=== PATIENT | female | born 1950 | race Caucasian/White ===

== ENCOUNTER 2016-04-12 11:10 | Emergency (ER) | payer OTHER ==
[2016-04-12] MEDS ORDERED: KETOROLAC 30 MG/ML VIAL (J1885) As Ordered ONE (12:56)
[2016-04-12] MEDS ORDERED: ONDANSETRON 4MG/2ML VIAL (J2405) As Ordered ONE (12:56)
[2016-04-12 13:29] LABS: BASO # 0.1 K/mm3 (0.0-0.2); BASO % 0.6 % (0.0-1.0); EOS # 0.1 K/mm3 (0.0-0.50); EOS % 0.6 % (0.0-3.0); LARGE UNSTAINED CELL # 0.1 K/mm3 (0.0-0.4); LARGE UNSTAINED CELL % 0.4 % (0.0-4.0); LYMPH # 1.1 K/mm3 (1.5-4.5); MEAN CORPUSCULAR HEMOGLOBIN 28.7 pg (27.0-33.0); MEAN CORPUSCULAR HGB CONC 33.5 g/dl (32.0-36.5); MEAN CORPUSCULAR VOLUME 85.7 fl (80.0-96.0); MONO # 1.1 K/mm3 (0.0-0.8); MONO % 5.2 % (0.0-5.0); NEUTROPHILS # 17.7 K/mm3 (1.8-7.7); NEUTROPHILS % 88.1 % (36.0-66.0); PLATELET COUNT, AUTOMATED 245 k/mm3 (150-450); RED CELL DISTRIBUTION WIDTH 13.5 % (11.5-14.5)
[2016-04-12 13:55] LABS: ALBUMIN 4.1 GM/DL (3.2-5.2); ALBUMIN/GLOBULIN RATIO 1.14 (1.00-1.93); ALKALINE PHOSPHATASE 83 U/L (45-117); ALT/SGPT 30 U/L (12-78); AMYLASE 31 U/L (25-115); ANION GAP 8 MEQ/L (8-16); AST/SGOT 21 U/L (15-37); BILIRUBIN,DIRECT 0.1 MG/DL (0.0-0.2); BILIRUBIN,TOTAL 0.5 MG/DL (0.2-1.0); BLOOD UREA NITROGEN 11 MG/DL (7-18); CARBON DIOXIDE LEVEL 34 MEQ/L (21-32); CHLORIDE LEVEL 98 MEQ/L (98-107); CREATININE FOR GFR 0.62 MG/DL (0.55-1.02); GLOMERULAR FILTRATION RATE > 60.0 (>45); GLUCOSE, FASTING 88 MG/DL (80-110); POTASSIUM SERUM 3.2 MEQ/L (3.5-5.1); SODIUM LEVEL 140 MEQ/L (136-145); TOTAL PROTEIN 7.7 GM/DL (6.4-8.2)
[2016-04-12] MEDS ORDERED: metroNIDAZOLE (FLAGYL) 250 MG TAB As Ordered ONE (14:33)
[2016-04-12] MEDS ORDERED: CIPROFLOXACIN 500 MG TAB As Ordered ONE (14:34)
[2016-04-12] MEDS ORDERED: ACETAMINOPHEN 325 MG TAB As Ordered ONE (14:34)
--- NOTE | 2016-04-12 14:55 | EDDOCDS ---
Physician Documentation [facility] Name: Zoe Gunn Age: 65 yrs Sex: Female : 1950 Arrival Date: 04/12/2016 Time: 11:10 Bed I5 / M5 Private MD: Geovanny Castro Disposition: 04/12/16 14:32 Discharged to Home/Self Care. Impression: Diverticulitis of large intestine without perforation or abscess without bleeding - Sigmoid Colon Diverticulitis. - Condition is Stable. - Discharge Instructions: Diverticulitis, [id number]. - Prescriptions for Cipro 500 mg Oral Tablet - take 1 tablet by ORAL route every 12 hours for 10 days; 20 tablet. Flagyl 500 mg Oral Tablet - take 1 tablet by ORAL route every 12 hours for 10 days; 20 tablet. Percocet 5- 325 mg Oral Tablet - take 1 tablet by ORAL route every 6 hours As needed MDD: 4 tabs; 10 tablet. - Medication Reconciliation, Local Pharmacy Hours form. - Follow up: Emergency Department; Reason: Worsening of conditions. Follow up: Geovanny Castro; When: 1 - 2 days; Reason: Recheck today's complaints, Continuance of care. - Problem is new. - Symptoms have improved. - Notes: Pt has an appointment on April [address] Castro and discussed with Dr Brantley today. Historical: - Allergies: no known allergies; - Home Meds: 1. triamterene-hydrochlorothiazid 37.5-25 mg Oral cap 1 cap once daily 2. acyclovir 400 mg Oral tab 1 tab 2 times per day 3. omeprazole 40 mg Oral cpDR 1 cap 2 times per day 4. ranitidine HCl 150 mg Oral tbef twice a day 5. simvastatin 20 mg Oral tab 1 tab once daily 6. venlafaxine 150 mg oral cp24 1 cap once daily 7. aspirin 81 mg Oral chew once daily 8. Calcarb 600 With Vitamin D 600 mg(1,500mg) -200 unit Oral tab - PMHx: Hot flashes; Hypercholesterolemia; Hypertension; Herpes; melanoma; - PSHx: Tubal ligation; Hysterectomy; radial groin disection; - Social history: Smoking status: No barriers to communication noted, Speaks appropriately for age, Smoking status: Patient states former smoker of tobacco. - Family history: No immediate family members are acutely ill. - : The pt / caregiver states he / she is not on anticoagulants. Home medication list is obtained from the patient. - Exposure Risk Screening:: None identified. Vital Signs: 04/12 11:11 BP 164 / 82; Pulse 103; Resp 20; Temp 100.0(O); Pulse Ox 98% on R/A; Weight 72.57 kg / elp 159.99 lbs (R); Height 5 ft. 7 in. (170.18 cm) (R); Pain 10/10; 12:36 BP 143 / 77; Pulse 105; ar3 14:24 BP 154 / 80; Pulse 101; Resp 20; Temp 100.1(O); Pulse Ox 97% on R/A; Pain 1/10; dwg 11:11 Body Mass Index 25.06 (72.57 kg, 170.18 cm) elp MDM: 12:44 Urine Dip ordered. ef1 12:45 Urine Culture Ordered. EDMS 12:51 Ondansetron 4 mg IVP once ordered. ef1 12:51 IV Saline Lock ordered. ef1 12:51 Undress patient appropriately for examination ordered. ef1 12:51 ketorolac 15 mg IVP once ordered. ef1 12:52 Amylase Ordered. EDMS 12:52 Basic Metabolic Profile Ordered. EDMS 12:52 CBC with Diff Ordered. EDMS 12:52 Lipase Ordered. EDMS 12:52 Liver Profile Ordered. EDMS 12:52 CT ABD & PELVIS: No Contrast Ordered. EDMS 12:52 NOTHING BY MOUTH+DIET ordered. EDMS 14:14 Basic Metabolic Profile Reviewed. ef1 14:14 CBC with Diff Reviewed. ef1 14:14 Amylase Reviewed. ef1 14:14 Lipase Reviewed. ef1 14:14 Liver Profile Reviewed. ef1 14:20 Recheck Vital Signs, perform reassessment and enter into [employer]ist[employer] ordered. ef1 14:23 [facility] Payment Agreement was scanned into [employer] and attached to record. jp5 14:23 Financial registration complete. jp5 14:28 Ciprofloxacin 500 mg PO once ordered. ef1 14:28 metroNIDAZOLE 500 mg PO once ordered. ef1 14:28 Acetaminophen Tablet 650 mg PO once ordered. ef1 Point of Care Testing: Urine Dip: 12:47 pH: 7; ; Specific [place]: 1.015; Ketones: Negative; Glucose: Positive; Protein: jjr Negative; Leukocytes: Negative; Nitrite: Negative ; Blood: Negative; Bilirubin: Negative ; Urobilinogen: Normal Ranges: Administered Medications: 13:24 Drug: ketorolac 15 mg [ketorolac 30 mg/mL (1 mL) injection solution (0.5 mL)] Route: dwg IVP; Site: right antecubital; 13:56 Follow up: Response: Pain is decreased dwg 13:25 Drug: Ondansetron 4 mg Route: IVP; Site: right antecubital; dwg 13:56 Follow up: Response: Nausea is resolved dwg 14:37 Drug: Acetaminophen 650 mg [acetaminophen 325 mg tablet (2 tabs)] Route: PO; dls 14:37 Follow up: Response: Pt left department before re-evaluation is appropriate dls 14:38 Drug: Ciprofloxacin 500 mg [ciprofloxacin 500 mg tablet (1 tabs)] Route: PO; dls 14:38 Drug: metroNIDAZOLE 500 mg [metronidazole 250 mg tablet (2 tabs)] Route: PO; dls 14:38 Follow up: Response: Pt left department before re-evaluation is appropriate dls Signatures: Dispatcher [employer] Shawn Palomares RN RN dwg Ginger Fraire, PA-C PA-C ef1 Janell Brothers RN RN rs3 Lala Edwards jp5 Agnieszka Cardona RN dls The chart was reviewed and I authenticate all verbal orders and agree with the evaluation and treatment provided.Attachments: 14:23 [facility] Payment Agreement jp5 MTDD
--- NOTE | 2016-04-12 14:55 | EDDOCDS ---
Nurse's Notes [facility] Name: Zoe Gunn Age: 65 yrs Sex: Female : 1950 Arrival Date: 04/12/2016 Time: 11:10 Bed I5 / M5 Private MD: Geovanny Castro Diagnosis: Diverticulitis of large intestine without perforation or abscess without bleeding-Sigmoid Colon Diverticulitis Presentation: 04/12 11:44 Presenting complaint: Patient states: lower abdominal pain/spasm since . worse rs3 with walking. No relief with Motrin. denies of vaginal discharge. increased pain with urination/BM. mucous discharge with BM today. Adult Sepsis Screening: The patient does not have new or worsening altered mentation. Patient's respiratory rate is less than 22. Systolic blood pressure is greater than 100. Patient has a qSOFA score of 0- Negative Sepsis Screen. Suicide/Homicide risk assessment- the patient denies having any suicidal and/or homicidal ideations and does not present with any other emotional, behavioral or mental health complaints. Status: Patient is not a medical services assistant or dependent. Transition of care: patient was not received from another setting of care. 11:44 Acuity: DIMAS Level 3 rs3 11:44 Method Of Arrival: Walkin/Carried/Asstd rs3 Triage Assessment: 11:52 General: Appears in no apparent distress. Pain: Location: pelvis. rs3 Historical: - Allergies: no known allergies; - Home Meds: 1. triamterene-hydrochlorothiazid 37.5-25 mg Oral cap 1 cap once daily 2. acyclovir 400 mg Oral tab 1 tab 2 times per day 3. omeprazole 40 mg Oral cpDR 1 cap 2 times per day 4. ranitidine HCl 150 mg Oral tbef twice a day 5. simvastatin 20 mg Oral tab 1 tab once daily 6. venlafaxine 150 mg oral cp24 1 cap once daily 7. aspirin 81 mg Oral chew once daily 8. Calcarb 600 With Vitamin D 600 mg(1,500mg) -200 unit Oral tab - PMHx: Hot flashes; Hypercholesterolemia; Hypertension; Herpes; melanoma; - PSHx: Tubal ligation; Hysterectomy; radial groin disection; - Social history: Smoking status: No barriers to communication noted, Speaks appropriately for age, Smoking status: Patient states former smoker of tobacco. - Family history: No immediate family members are acutely ill. - : The pt / caregiver states he / she is not on anticoagulants. Home medication list is obtained from the patient. - Exposure Risk Screening:: None identified. Screenin:48 Screening information is obtained from the patient. Fall risk: No risks identified. dwg Assistance ADL's: requires no assistance with activities of daily living. Abuse/DV Screen: The patient / caregiver reports he/she is: not in a situation that causes fear, pain or injury. Nutritional screening: No deficits noted. Advance Directives: Currently, there is no health care proxy. There is no active DNR order. There is no living will. There is no Power of Reception Interviewer. Advance directive information has not previously been placed in an [facility] medical record. Further advance directive information is declined. home support is adequate. Assessment: 13:25 General: Appears in no apparent distress, Behavior is cooperative, pleasant. General: dwg ''Pelvic pressure'' for 4 days, no vomiting or vaginal bleeding.. Pain: Pain currently is 5 out of 10 on a pain scale. Neurological: Level of Consciousness is awake, alert, Oriented to person, place, time. Respiratory: Airway is patent Respiratory effort is even, unlabored, Respiratory pattern is regular, symmetrical, Breath sounds are clear bilaterally. 14:25 General: Appears in no apparent distress, Behavior is cooperative. Neurological: Level dwg of Consciousness is awake, alert, Oriented to person, place, time. Respiratory: Airway is patent Respiratory effort is even, unlabored, Respiratory pattern is regular, symmetrical. Vital Signs: 11:11 BP 164 / 82; Pulse 103; Resp 20; Temp 100.0(O); Pulse Ox 98% on R/A; Weight 72.57 kg el (R); Height 5 ft. 7 in. (170.18 cm) (R); Pain 10/10; 12:36 BP 143 / 77; Pulse 105; ar3 14:24 BP 154 / 80; Pulse 101; Resp 20; Temp 100.1(O); Pulse Ox 97% on R/A; Pain 1/10; dwg 11:11 Body Mass Index 25.06 (72.57 kg, 170.18 cm) [facility] Vitals: 11:11 Log In Time: April 12, 2016 at 11:00. [facility] ED Course: 11:11 Patient visited by Chen Boo PCA. elp 11:11 Geovanny Castro is Private Physician. elp 11:11 Patient moved to Waiting elp 11:25 Patient moved to Pre RCE elp 11:47 Triage Initiated rs3 12:22 Patient moved to Triage 2 ms18 12:34 [facility] Fra[facility] ef1 12:34 Xiomara Ware MD is Attending Physician. ef1 12:34 Patient visited by Ginger Fraire PA-C. ef1 12:37 Patient visited by Gema Larsen PCA. ar3 12:48 Urine Culture Sent. ar3 12:53 Patient moved to I5 / M5 jjr 12:55 Patient visited by Sharon Dorsey PCA. jlf 13:24 Amylase Sent. dwg 13:24 Basic Metabolic Profile Sent. dwg 13:24 CBC with Diff Sent. dwg 13:24 Lipase Sent. dwg 13:24 Liver Profile Sent. dwg 13:25 Inserted peripheral IV: 20gauge IV in right antecubital area. Labs drawn. (by ED [facility] staff). Sent per order to lab. Urine collected. Clean catch specimen. Urine specimen sent to lab. 13:27 Patient visited by Shawn Mauro RN. dwg 14:10 Patient visited by Gema Larsen PCA. ar3 14:23 [facility] Payment Agreement was scanned into [employer] and attached to record. jp5 14:26 Patient visited by Sharon Dorsey PCA. jlf 14:28 Patient name changed from Zoe\S\J\S\Luis A\S\ to Zoe\S\Tom\S\Bryant. EDMS 14:31 Geovanny Castro is Referral Physician. ef1 14:53 Patient visited by Shawn Mauro RN. dwg 14:53 No procedures done that require assistance. dwg 14:54 The patient / caregiver is instructed regarding the plan of care and ED course. dwg Administered Medications: 13:24 Drug: ketorolac 15 mg [ketorolac 30 mg/mL (1 mL) injection solution (0.5 mL)] Route: [facility] IVP; Site: right antecubital; 13:56 Follow up: Response: Pain is decreased dwg 13:25 Drug: Ondansetron 4 mg Route: IVP; Site: right antecubital; dwg 13:56 Follow up: Response: Nausea is resolved dwg 14:37 Drug: Acetaminophen 650 mg [acetaminophen 325 mg tablet (2 tabs)] Route: PO; dls 14:37 Follow up: Response: Pt left department before re-evaluation is appropriate dls 14:38 Drug: Ciprofloxacin 500 mg [ciprofloxacin 500 mg tablet (1 tabs)] Route: PO; dls 14:38 Drug: metroNIDAZOLE 500 mg [metronidazole 250 mg tablet (2 tabs)] Route: PO; dls 14:38 Follow up: Response: Pt left department before re-evaluation is appropriate dls Point of Care Testing: Urine Dip: 12:47 pH: 7; ; Specific [place]: 1.015; Ketones: Negative; Glucose: Positive; Protein: jjr Negative; Leukocytes: Negative; Nitrite: Negative ; Blood: Negative; Bilirubin: Negative ; Urobilinogen: Normal Ranges: Order Results: Lab Order: Amylase; SPEC'M 04/12/16 13:22 Test: AMYLASE; Value: 31; Range: 25-115; Units: U/L; Status: F Lab Order: Basic Metabolic Profile; SPEC'M 04/12/16 13:22 Test: GLUCOSE, FASTING; Value: 88; Range: 80-110; Units: MG/DL; Status: F Test: BLOOD UREA NITROGEN; Value: 11; Range: 7-18; Units: MG/DL; Status: F Test: CREATININE FOR GFR; Value: 0.62; Range: 0.55-1.02; Units: MG/DL; Status: F Test: GLOMERULAR FILTRATION RATE; Value: > 60.0; Range: >45; Status: F Test: SODIUM LEVEL; Value: 140; Range: 136-145; Units: MEQ/L; Status: F Test: POTASSIUM SERUM; Value: 3.2; Range: 3.5-5.1; Abnormal: Below low normal; Units: MEQ/L; Status: F Test: CHLORIDE LEVEL; Value: 98; Range: 98-107; Units: MEQ/L; Status: F Test: CARBON DIOXIDE LEVEL; Value: 34; Range: 21-32; Abnormal: Above high normal; Units: MEQ/L; Status: F Test: ANION GAP; Value: 8; Range: 8-16; Units: MEQ/L; Status: F Test: CALCIUM LEVEL; Value: 9.0; Range: 8.8-10.2; Units: MG/DL; Status: F Test Note: ; Units are mL/min/1.73 m2 Chronic Kidney Disease Staging per NKF: Stage I & II GFR >=60 Normal to Mildly Decreased Stage III GFR 30-59 Moderately Decreased Stage IV GFR 15-29 Severely Decreased Stage V GFR <15 Very Little GFR Left ESRD GFR <15 on BIOLOGIST Lab Order: CBC with Diff; SPEC'M 04/12/16 13:22 Test: WHITE BLOOD COUNT; Value: 20.0; Range: 4.0-10.0; Abnormal: Above high normal; Units: K/mm3; Status: F Test: RED BLOOD COUNT; Value: 5.20; Range: 4.00-5.40; Units: M/mm3; Status: F Test: HEMOGLOBIN; Value: 14.9; Range: 12.0-16.0; Units: g/dl; Status: F Test: HEMATOCRIT; Value: 44.6; Range: 36.0-47.0; Units: %; Status: F Test: MEAN CORPUSCULAR VOLUME; Value: 85.7; Range: 80.0-96.0; Units: fl; Status: F Test: MEAN CORPUSCULAR HEMOGLOBIN; Value: 28.7; Range: 27.0-33.0; Units: pg; Status: F Test: MEAN CORPUSCULAR HGB CONC; Value: 33.5; Range: 32.0-36.5; Units: g/dl; Status: F Test: RED CELL DISTRIBUTION WIDTH; Value: 13.5; Range: 11.5-14.5; Units: %; Status: F Test: PLATELET COUNT, AUTOMATED; Value: 245; Range: 150-450; Units: k/mm3; Status: F Test: NEUTROPHILS %; Value: 88.1; Range: 36.0-66.0; Abnormal: Above high normal; Units: %; Status: F Test: LYMPH %; Value: 5.0; Range: 24.0-44.0; Abnormal: Below low normal; Units: %; Status: F Test: MONO %; Value: 5.2; Range: 0.0-5.0; Abnormal: Above high normal; Units: %; Status: F Test: EOS %; Value: 0.6; Range: 0.0-3.0; Units: %; Status: F Test: BASO %; Value: 0.6; Range: 0.0-1.0; Units: %; Status: F Test: LARGE UNSTAINED CELL %; Value: 0.4; Range: 0.0-4.0; Units: %; Status: F Test: NEUTROPHILS #; Value: 17.7; Range: 1.8-7.7; Abnormal: Above high normal; Units: K/mm3; Status: F Test: LYMPH #; Value: 1.1; Range: 1.5-4.5; Abnormal: Below low normal; Units: K/mm3; Status: F Test: MONO #; Value: 1.1; Range: 0.0-0.8; Abnormal: Above high normal; Units: K/mm3; Status: F Test: EOS #; Value: 0.1; Range: 0.0-0.50; Units: K/mm3; Status: F Test: BASO #; Value: 0.1; Range: 0.0-0.2; Units: K/mm3; Status: F Test: LARGE UNSTAINED CELL #; Value: 0.1; Range: 0.0-0.4; Units: K/mm3; Status: F Lab Order: Lipase; SPEC' 04/12/16 13:22 Test: LIPASE; Value: 105; Range: 73-393; Units: U/L; Status: F Lab Order: Liver Profile; SPEC' 04/12/16 13:22 Test: AST/SGOT; Value: 21; Range: 15-37; Units: U/L; Status: F Test: ALT/SGPT; Value: 30; Range: 12-78; Units: U/L; Status: F Test: ALKALINE PHOSPHATASE; Value: 83; Range: 45-117; Units: U/L; Status: F Test: BILIRUBIN,TOTAL; Value: 0.5; Range: 0.2-1.0; Units: MG/DL; Status: F Test: BILIRUBIN,DIRECT; Value: 0.1; Range: 0.0-0.2; Units: MG/DL; Status: F Test: TOTAL PROTEIN; Value: 7.7; Range: 6.4-8.2; Units: GM/DL; Status: F Test: ALBUMIN; Value: 4.1; Range: 3.2-5.2; Units: GM/DL; Status: F Test: ALBUMIN/GLOBULIN RATIO; Value: 1.14; Range: 1.00-1.93; Status: F Outcome: 14:32 Discharge ordered by Provider. ef1 14:50 Discharge Assessment: Patient awake, alert and oriented x 3. No cognitive and/or dwg functional deficits noted. Patient verbalized understanding of disposition instructions. patient administered narcotics - no. The following High Risk Discharge criteria are identified: None. Discharged to home ambulatory. Condition: good Condition: stable. CT Study completed. 14:54 Property sent home with patient. dwg 14:54 Patient left the ED. dwg Signatures: Dispatcher [employer] EDShawn Reynolds RN Agnieszka Reid RN RN dls Raymond, Jessica, RN RN jjr Feola, Erica, PA-C PA-C ef1 Janell Brothers RN RN rs3 Chava, Gema, FRENCH TRANSLATOR FRENCH TRANSLATOR ar3 Chen Boo, FRENCH TRANSLATOR FRENCH TRANSLATOR elp Sharon Dorsey, FRENCH TRANSLATOR FRENCH TRANSLATOR jlf Consuelo Goldsmith RN RN [id number] Lala Edwards jp5 Corrections: (The following items were deleted from the chart) 12:52 11:44 Presenting complaint: Patient states: lower abdominal pain/spasm since . rs3 worse with walking. Not relief with Motrin. denies of vaginal discharge. increased pain with urination/BM. mucous discharge with BM today rs3 MTDD
--- NOTE | 2016-04-13 11:17 | REP ---
CT abdomen pelvis without IV and oral contrast: Comparison is 04/10/2014. The visualized lung barraza are unremarkable. The hepatic parenchyma, gallbladder, pancreas and spleen are unremarkable. The adrenals are unremarkable. There is a 2.2 cm right renal cyst. The kidneys are otherwise unremarkable. There is no hydronephrosis. No renal calculi. The abdominal aorta is unremarkable. The bowel and mesentery are unremarkable. Pelvis: The appendix is not identified, however there is no pericecal inflammation. There is a hysterectomy. Vaginal cuff and adnexa are unremarkable. There is sigmoid colon diverticulosis with inflammation in the pericolic flat indicating diverticulitis. There is no abscess, free fluid or Impression: Sigmoid colon diverticulitis without abscess or free fluid or pneumoperitoneum. No hydronephrosis or renal calculi. Hysterectomy. Otherwise, negative CT of the abdomen and pelvis. pneumoperitoneum. Signed by Shawn Saez MD 04/12/2016 01:32 P
--- NOTE | 2016-04-14 15:55 | EDDOCDS ---
Nurse's Notes [facility] Name: Zoe Gunn Age: 65 yrs Sex: Female : 1950 Arrival Date: 04/12/2016 Time: 11:10 Bed I5 / M5 Private MD: Geovanny Castro Diagnosis: Diverticulitis of large intestine without perforation or abscess without bleeding-Sigmoid Colon Diverticulitis Presentation: 04/12 11:44 Presenting complaint: Patient states: lower abdominal pain/spasm since . worse rs3 with walking. No relief with Motrin. denies of vaginal discharge. increased pain with urination/BM. mucous discharge with BM today. Adult Sepsis Screening: The patient does not have new or worsening altered mentation. Patient's respiratory rate is less than 22. Systolic blood pressure is greater than 100. Patient has a qSOFA score of 0- Negative Sepsis Screen. Suicide/Homicide risk assessment- the patient denies having any suicidal and/or homicidal ideations and does not present with any other emotional, behavioral or mental health complaints. Status: Patient is not a electrical sign servicer or dependent. Transition of care: patient was not received from another setting of care. 11:44 Acuity: DIMAS Level 3 rs3 11:44 Method Of Arrival: Walkin/Carried/Asstd rs3 Triage Assessment: 11:52 General: Appears in no apparent distress. Pain: Location: pelvis. rs3 Historical: - Allergies: no known allergies; - Home Meds: 1. triamterene-hydrochlorothiazid 37.5-25 mg Oral cap 1 cap once daily 2. acyclovir 400 mg Oral tab 1 tab 2 times per day 3. omeprazole 40 mg Oral cpDR 1 cap 2 times per day 4. ranitidine HCl 150 mg Oral tbef twice a day 5. simvastatin 20 mg Oral tab 1 tab once daily 6. venlafaxine 150 mg oral cp24 1 cap once daily 7. aspirin 81 mg Oral chew once daily 8. Calcarb 600 With Vitamin D 600 mg(1,500mg) -200 unit Oral tab - PMHx: Hot flashes; Hypercholesterolemia; Hypertension; Herpes; melanoma; - PSHx: Tubal ligation; Hysterectomy; radial groin disection; - Social history: Smoking status: No barriers to communication noted, Speaks appropriately for age, Smoking status: Patient states former smoker of tobacco. - Family history: No immediate family members are acutely ill. - : The pt / caregiver states he / she is not on anticoagulants. Home medication list is obtained from the patient. - Exposure Risk Screening:: None identified. Screenin:48 Screening information is obtained from the patient. Fall risk: No risks identified. dwg Assistance ADL's: requires no assistance with activities of daily living. Abuse/DV Screen: The patient / caregiver reports he/she is: not in a situation that causes fear, pain or injury. Nutritional screening: No deficits noted. Advance Directives: Currently, there is no health care proxy. There is no active DNR order. There is no living will. There is no Power of Appointment Specialist. Advance directive information has not previously been placed in an [facility] medical record. Further advance directive information is declined. home support is adequate. Assessment: 13:25 General: Appears in no apparent distress, Behavior is cooperative, pleasant. General: dwg ''Pelvic pressure'' for 4 days, no vomiting or vaginal bleeding.. Pain: Pain currently is 5 out of 10 on a pain scale. Neurological: Level of Consciousness is awake, alert, Oriented to person, place, time. Respiratory: Airway is patent Respiratory effort is even, unlabored, Respiratory pattern is regular, symmetrical, Breath sounds are clear bilaterally. 14:25 General: Appears in no apparent distress, Behavior is cooperative. Neurological: Level dwg of Consciousness is awake, alert, Oriented to person, place, time. Respiratory: Airway is patent Respiratory effort is even, unlabored, Respiratory pattern is regular, symmetrical. Vital Signs: 11:11 BP 164 / 82; Pulse 103; Resp 20; Temp 100.0(O); Pulse Ox 98% on R/A; Weight 72.57 kg el (R); Height 5 ft. 7 in. (170.18 cm) (R); Pain 10/10; 12:36 BP 143 / 77; Pulse 105; ar3 14:24 BP 154 / 80; Pulse 101; Resp 20; Temp 100.1(O); Pulse Ox 97% on R/A; Pain 1/10; dwg 11:11 Body Mass Index 25.06 (72.57 kg, 170.18 cm) [facility] Vitals: 11:11 Log In Time: April 12, 2016 at 11:00. [facility] ED Course: 11:11 Patient visited by Chen Boo PCA. elp 11:11 Geovanny Castro is Private Physician. elp 11:11 Patient moved to Waiting elp 11:25 Patient moved to Pre RCE elp 11:47 Triage Initiated rs3 12:22 Patient moved to Triage 2 ms18 12:34 [facility]inger Fra[facility]C [facility]. ef1 12:34 Xiomara Ware MD is Attending Physician. ef1 12:34 Patient visited by Ginger Fraire PA-C. ef1 12:37 Patient visited by Gema Larsen PCA. ar3 12:48 Urine Culture Sent. ar3 12:53 Patient moved to I5 / M5 jjr 12:55 Patient visited by Sharon Dorsey PCA. jlf 13:24 Amylase Sent. dwg 13:24 Basic Metabolic Profile Sent. dwg 13:24 CBC with Diff Sent. dwg 13:24 Lipase Sent. dwg 13:24 Liver Profile Sent. dwg 13:25 Inserted peripheral IV: 20gauge IV in right antecubital area. Labs drawn. (by ED dwg staff). Sent per order to lab. Urine collected. Clean catch specimen. Urine specimen sent to lab. 13:27 Patient visited by Shawn Mauro RN. dwg 14:10 Patient visited by Gema Larsen PCA. ar3 14:23 [facility] Payment Agreement was scanned into [employer] and attached to record. jp5 14:26 Patient visited by Sharon Dorsey PCA. jlf 14:28 Patient name changed from Zoe\S\J\S\Luis A\S\ to Zoe\S\Tom\S\[place]. EDMS 14:31 Geovanny Castro is Referral Physician. ef1 14:53 Patient visited by Shawn Mauro RN. dwg 14:53 No procedures done that require assistance. dwg 14:54 The patient / caregiver is instructed regarding the plan of care and ED course. dwg 19:16 T-Sheet-- Draft Copy was scanned into [employer] and attached to record. klr 04/13 11:20 CT ABD & PELVIS: No Contrast Returned. EDMS Administered Medications: 04/12 13:24 Drug: ketorolac 15 mg [ketorolac 30 mg/mL (1 mL) injection solution (0.5 mL)] Route: dwg IVP; Site: right antecubital; 13:56 Follow up: Response: Pain is decreased [facility] 13:25 Drug: Ondansetron 4 mg Route: IVP; Site: right antecubital; dwg 13:56 Follow up: Response: Nausea is resolved dw 14:37 Drug: Acetaminophen 650 mg [acetaminophen 325 mg tablet (2 tabs)] Route: PO; dls 14:37 Follow up: Response: Pt left department before re-evaluation is appropriate dls 14:38 Drug: Ciprofloxacin 500 mg [ciprofloxacin 500 mg tablet (1 tabs)] Route: PO; dls 14:38 Drug: metroNIDAZOLE 500 mg [metronidazole 250 mg tablet (2 tabs)] Route: PO; dls 14:38 Follow up: Response: Pt left department before re-evaluation is appropriate [facility] Point of Care Testing: Urine Dip: 12:47 pH: 7; ; Specific [place]: 1.015; Ketones: Negative; Glucose: Positive; Protein: jjr Negative; Leukocytes: Negative; Nitrite: Negative ; Blood: Negative; Bilirubin: Negative ; Urobilinogen: Normal Ranges: Order Results: Lab Order: Urine Culture; SPEC'M 04/12/16 12:48 Test: URINE CULTURE; Value: <EXTERNAL COMMENT eCWMed> FULL REPORT IN LAB NOTES (eCW and Medent).; Status: F Test: URINE CULTURE; Value: URINE CULTURE RESULT NO GROWTH CLINICAL SIGNIFICANCE 1 ORGANISM; Status: F Lab Order: Amylase; SPEC'M 04/12/16 13:22 Test: AMYLASE; Value: 31; Range: 25-115; Units: U/L; Status: F Lab Order: Basic Metabolic Profile; SPEC'M 04/12/16 13:22 Test: GLUCOSE, FASTING; Value: 88; Range: 80-110; Units: MG/DL; Status: F Test: BLOOD UREA NITROGEN; Value: 11; Range: 7-18; Units: MG/DL; Status: F Test: CREATININE FOR GFR; Value: 0.62; Range: 0.55-1.02; Units: MG/DL; Status: F Test: GLOMERULAR FILTRATION RATE; Value: > 60.0; Range: >45; Status: F Test: SODIUM LEVEL; Value: 140; Range: 136-145; Units: MEQ/L; Status: F Test: POTASSIUM SERUM; Value: 3.2; Range: 3.5-5.1; Abnormal: Below low normal; Units: MEQ/L; Status: F Test: CHLORIDE LEVEL; Value: 98; Range: 98-107; Units: MEQ/L; Status: F Test: CARBON DIOXIDE LEVEL; Value: 34; Range: 21-32; Abnormal: Above high normal; Units: MEQ/L; Status: F Test: ANION GAP; Value: 8; Range: 8-16; Units: MEQ/L; Status: F Test: CALCIUM LEVEL; Value: 9.0; Range: 8.8-10.2; Units: MG/DL; Status: F Test Note: ; Units are mL/min/1.73 m2 Chronic Kidney Disease Staging per NKF: Stage I & II GFR >=60 Normal to Mildly Decreased Stage III GFR 30-59 Moderately Decreased Stage IV GFR 15-29 Severely Decreased Stage V GFR <15 Very Little GFR Left ESRD GFR <15 on OCCUPATIONAL THERAPY DIRECTOR Lab Order: CBC with Diff; SPEC'M 04/12/16 13:22 Test: WHITE BLOOD COUNT; Value: 20.0; Range: 4.0-10.0; Abnormal: Above high normal; Units: K/mm3; Status: F Test: RED BLOOD COUNT; Value: 5.20; Range: 4.00-5.40; Units: M/mm3; Status: F Test: HEMOGLOBIN; Value: 14.9; Range: 12.0-16.0; Units: g/dl; Status: F Test: HEMATOCRIT; Value: 44.6; Range: 36.0-47.0; Units: %; Status: F Test: MEAN CORPUSCULAR VOLUME; Value: 85.7; Range: 80.0-96.0; Units: fl; Status: F Test: MEAN CORPUSCULAR HEMOGLOBIN; Value: 28.7; Range: 27.0-33.0; Units: pg; Status: F Test: MEAN CORPUSCULAR HGB CONC; Value: 33.5; Range: 32.0-36.5; Units: g/dl; Status: F Test: RED CELL DISTRIBUTION WIDTH; Value: 13.5; Range: 11.5-14.5; Units: %; Status: F Test: PLATELET COUNT, AUTOMATED; Value: 245; Range: 150-450; Units: k/mm3; Status: F Test: NEUTROPHILS %; Value: 88.1; Range: 36.0-66.0; Abnormal: Above high normal; Units: %; Status: F Test: LYMPH %; Value: 5.0; Range: 24.0-44.0; Abnormal: Below low normal; Units: %; Status: F Test: MONO %; Value: 5.2; Range: 0.0-5.0; Abnormal: Above high normal; Units: %; Status: F Test: EOS %; Value: 0.6; Range: 0.0-3.0; Units: %; Status: F Test: BASO %; Value: 0.6; Range: 0.0-1.0; Units: %; Status: F Test: LARGE UNSTAINED CELL %; Value: 0.4; Range: 0.0-4.0; Units: %; Status: F Test: NEUTROPHILS #; Value: 17.7; Range: 1.8-7.7; Abnormal: Above high normal; Units: K/mm3; Status: F Test: LYMPH #; Value: 1.1; Range: 1.5-4.5; Abnormal: Below low normal; Units: K/mm3; Status: F Test: MONO #; Value: 1.1; Range: 0.0-0.8; Abnormal: Above high normal; Units: K/mm3; Status: F Test: EOS #; Value: 0.1; Range: 0.0-0.50; Units: K/mm3; Status: F Test: BASO #; Value: 0.1; Range: 0.0-0.2; Units: K/mm3; Status: F Test: LARGE UNSTAINED CELL #; Value: 0.1; Range: 0.0-0.4; Units: K/mm3; Status: F Lab Order: Lipase; SPEC'M 04/12/16 13:22 Test: LIPASE; Value: 105; Range: 73-393; Units: U/L; Status: F Lab Order: Liver Profile; SPEC'M 04/12/16 13:22 Test: AST/SGOT; Value: 21; Range: 15-37; Units: U/L; Status: F Test: ALT/SGPT; Value: 30; Range: 12-78; Units: U/L; Status: F Test: ALKALINE PHOSPHATASE; Value: 83; Range: 45-117; Units: U/L; Status: F Test: BILIRUBIN,TOTAL; Value: 0.5; Range: 0.2-1.0; Units: MG/DL; Status: F Test: BILIRUBIN,DIRECT; Value: 0.1; Range: 0.0-0.2; Units: MG/DL; Status: F Test: TOTAL PROTEIN; Value: 7.7; Range: 6.4-8.2; Units: GM/DL; Status: F Test: ALBUMIN; Value: 4.1; Range: 3.2-5.2; Units: GM/DL; Status: F Test: ALBUMIN/GLOBULIN RATIO; Value: 1.14; Range: 1.00-1.93; Status: F Radiology Order: CT ABD & PELVIS: No Contrast Test: CT ABD & PELVIS: No Contrast REASON FOR EXAMINATION: Renal colic; CT abdomen pelvis without IV and oral contrast:; ; Comparison is 04/10/2014.; ; The visualized lung barraza are unremarkable.; ; The hepatic parenchyma, gallbladder, pancreas and spleen are unremarkable.; ; The adrenals are unremarkable.; ; There is a 2.2 cm right renal cyst. The kidneys are otherwise unremarkable.; There is no hydronephrosis. No renal calculi.; ; The abdominal aorta is unremarkable.; ; The bowel and mesentery are unremarkable.; ; Pelvis:; ; The appendix is not identified, however there is no pericecal inflammation.; ; There is a hysterectomy. Vaginal cuff and adnexa are unremarkable.; ; There is sigmoid colon diverticulosis with inflammation in the pericolic flat; indicating diverticulitis. There is no abscess, free fluid or; ; Impression:; ; Sigmoid colon diverticulitis without abscess or free fluid or pneumoperitoneum.; ; No hydronephrosis or renal calculi.; ; Hysterectomy.; ; Otherwise, negative CT of the abdomen and pelvis. pneumoperitoneum.; ; ; Signed by; Shawn Saez MD 04/12/2016 01:32 P; Outcome: 14:32 Discharge ordered by Provider. ef1 14:50 Discharge Assessment: Patient awake, alert and oriented x 3. No cognitive and/or dwg functional deficits noted. Patient verbalized understanding of disposition instructions. patient administered narcotics - no. The following High Risk Discharge criteria are identified: None. Discharged to home ambulatory. Condition: good Condition: stable. CT Study completed. 14:54 Property sent home with patient. [facility] 14:54 Patient left the ED. [facility] Signatures: Dispatcher [employer] Shawn Palomares, RN RN Agnieszka Mcfarlane, RN RN Norah Rodriguez RN Ginger Krishnan, PASanjeev PASanjeev ef1 Janell Brothers RN RN rs3 Gema Larsen, COLLEGE ASSOCIATE COLLEGE ASSOCIATE ar3 Chen Boo, COLLEGE ASSOCIATE COLLEGE ASSOCIATE elp Sharon Dorsey, COLLEGE ASSOCIATE COLLEGE ASSOCIATE jlf Consuelo Goldsmith RN RN ms18 Jerry Lala dominguez5 Estelita Tovar Corrections: (The following items were deleted from the chart) 12:52 11:44 Presenting complaint: Patient states: lower abdominal pain/spasm since . rs3 worse with walking. Not relief with Motrin. denies of vaginal discharge. increased pain with urination/BM. mucous discharge with BM today rs3 Chart Complete MTDD
--- NOTE | 2016-04-14 15:55 | EDDOCDS ---
Physician Documentation [facility] Name: Zoe Gunn Age: 65 yrs Sex: Female : 1950 Arrival Date: 04/12/2016 Time: 11:10 Bed I5 / M5 Private MD: Geovanny Castro Disposition: 04/12/16 14:32 Discharged to Home/Self Care. Impression: Diverticulitis of large intestine without perforation or abscess without bleeding - Sigmoid Colon Diverticulitis. - Condition is Stable. - Discharge Instructions: Diverticulitis, [id number]. - Prescriptions for Cipro 500 mg Oral Tablet - take 1 tablet by ORAL route every 12 hours for 10 days; 20 tablet. Flagyl 500 mg Oral Tablet - take 1 tablet by ORAL route every 12 hours for 10 days; 20 tablet. Percocet 5- 325 mg Oral Tablet - take 1 tablet by ORAL route every 6 hours As needed MDD: 4 tabs; 10 tablet. - Medication Reconciliation, Local Pharmacy Hours form. - Follow up: Emergency Department; Reason: Worsening of conditions. Follow up: Geovanny Castro; When: 1 - 2 days; Reason: Recheck today's complaints, Continuance of care. - Problem is new. - Symptoms have improved. - Notes: Pt has an appointment on April [address] Castro and discussed with Dr Brantley today. Historical: - Allergies: no known allergies; - Home Meds: 1. triamterene-hydrochlorothiazid 37.5-25 mg Oral cap 1 cap once daily 2. acyclovir 400 mg Oral tab 1 tab 2 times per day 3. omeprazole 40 mg Oral cpDR 1 cap 2 times per day 4. ranitidine HCl 150 mg Oral tbef twice a day 5. simvastatin 20 mg Oral tab 1 tab once daily 6. venlafaxine 150 mg oral cp24 1 cap once daily 7. aspirin 81 mg Oral chew once daily 8. Calcarb 600 With Vitamin D 600 mg(1,500mg) -200 unit Oral tab - PMHx: Hot flashes; Hypercholesterolemia; Hypertension; Herpes; melanoma; - PSHx: Tubal ligation; Hysterectomy; radial groin disection; - Social history: Smoking status: No barriers to communication noted, Speaks appropriately for age, Smoking status: Patient states former smoker of tobacco. - Family history: No immediate family members are acutely ill. - : The pt / caregiver states he / she is not on anticoagulants. Home medication list is obtained from the patient. - Exposure Risk Screening:: None identified. Vital Signs: 04/12 11:11 BP 164 / 82; Pulse 103; Resp 20; Temp 100.0(O); Pulse Ox 98% on R/A; Weight 72.57 kg / elp 159.99 lbs (R); Height 5 ft. 7 in. (170.18 cm) (R); Pain 10/10; 12:36 BP 143 / 77; Pulse 105; ar3 14:24 BP 154 / 80; Pulse 101; Resp 20; Temp 100.1(O); Pulse Ox 97% on R/A; Pain 1/10; dwg 11:11 Body Mass Index 25.06 (72.57 kg, 170.18 cm) elp MDM: 12:44 Urine Dip ordered. ef1 12:45 Urine Culture Ordered. EDMS 12:51 Ondansetron 4 mg IVP once ordered. ef1 12:51 IV Saline Lock ordered. ef1 12:51 Undress patient appropriately for examination ordered. ef1 12:51 ketorolac 15 mg IVP once ordered. ef1 12:52 Amylase Ordered. EDMS 12:52 Basic Metabolic Profile Ordered. EDMS 12:52 CBC with Diff Ordered. EDMS 12:52 Lipase Ordered. EDMS 12:52 Liver Profile Ordered. EDMS 12:52 CT ABD & PELVIS: No Contrast Ordered. EDMS 12:52 NOTHING BY MOUTH+DIET ordered. EDMS 14:14 Basic Metabolic Profile Reviewed. ef1 14:14 CBC with Diff Reviewed. ef1 14:14 Amylase Reviewed. ef1 14:14 Lipase Reviewed. ef1 14:14 Liver Profile Reviewed. ef1 14:20 Recheck Vital Signs, perform reassessment and enter into [employer] ordered. ef1 14:23 [facility] Payment Agreement was scanned into [employer] and attached to record. jp5 14:23 Financial registration complete. jp5 14:28 Ciprofloxacin 500 mg PO once ordered. ef1 14:28 metroNIDAZOLE 500 mg PO once ordered. ef1 14:28 Acetaminophen Tablet 650 mg PO once ordered. ef1 19:16 T-Sheet-- Draft Copy was scanned into [employer] and attached to record. klr Point of Care Testing: Urine Dip: 12:47 pH: 7; ; Specific [place]: 1.015; Ketones: Negative; Glucose: Positive; Protein: jjr Negative; Leukocytes: Negative; Nitrite: Negative ; Blood: Negative; Bilirubin: Negative ; Urobilinogen: Normal Ranges: Administered Medications: 13:24 Drug: ketorolac 15 mg [ketorolac 30 mg/mL (1 mL) injection solution (0.5 mL)] Route: dwg IVP; Site: right antecubital; 13:56 Follow up: Response: Pain is decreased dwg 13:25 Drug: Ondansetron 4 mg Route: IVP; Site: right antecubital; dwg 13:56 Follow up: Response: Nausea is resolved dwg 14:37 Drug: Acetaminophen 650 mg [acetaminophen 325 mg tablet (2 tabs)] Route: PO; dls 14:37 Follow up: Response: Pt left department before re-evaluation is appropriate dls 14:38 Drug: Ciprofloxacin 500 mg [ciprofloxacin 500 mg tablet (1 tabs)] Route: PO; dls 14:38 Drug: metroNIDAZOLE 500 mg [metronidazole 250 mg tablet (2 tabs)] Route: PO; dls 14:38 Follow up: Response: Pt left department before re-evaluation is appropriate dls Signatures: Dispatcher [employer] EDShawn Reynolds RN RN g Ginger Fraire PA-C PASanjeev ef1 Janell Brothers,RN RN rs3 Lala Edwards jp5 Estelita Tovar Debra RN dls The chart was reviewed and I authenticate all verbal orders and agree with the evaluation and treatment provided.Attachments: 14:23 [facility] Payment Agreement jp5 19:16 T-Sheet-- Draft Copy kl Chart Complete MTDD
--- NOTE | 2016-04-14 15:56 | EDDOCDS ---
Physician Documentation [facility] Name: Zoe Gunn Age: 65 yrs Sex: Female : 1950 Arrival Date: 04/12/2016 Time: 11:10 Bed I5 / M5 Private MD: Geovanny Castro Disposition: 04/12/16 14:32 Discharged to Home/Self Care. Impression: Diverticulitis of large intestine without perforation or abscess without bleeding - Sigmoid Colon Diverticulitis. - Condition is Stable. - Discharge Instructions: Diverticulitis, [id number]. - Prescriptions for Cipro 500 mg Oral Tablet - take 1 tablet by ORAL route every 12 hours for 10 days; 20 tablet. Flagyl 500 mg Oral Tablet - take 1 tablet by ORAL route every 12 hours for 10 days; 20 tablet. Percocet 5- 325 mg Oral Tablet - take 1 tablet by ORAL route every 6 hours As needed MDD: 4 tabs; 10 tablet. - Medication Reconciliation, Local Pharmacy Hours form. - Follow up: Emergency Department; Reason: Worsening of conditions. Follow up: Geovanny Castro; When: 1 - 2 days; Reason: Recheck today's complaints, Continuance of care. - Problem is new. - Symptoms have improved. - Notes: Pt has an appointment on April [address] Castro and discussed with Dr Brantley today. Historical: - Allergies: no known allergies; - Home Meds: 1. triamterene-hydrochlorothiazid 37.5-25 mg Oral cap 1 cap once daily 2. acyclovir 400 mg Oral tab 1 tab 2 times per day 3. omeprazole 40 mg Oral cpDR 1 cap 2 times per day 4. ranitidine HCl 150 mg Oral tbef twice a day 5. simvastatin 20 mg Oral tab 1 tab once daily 6. venlafaxine 150 mg oral cp24 1 cap once daily 7. aspirin 81 mg Oral chew once daily 8. Calcarb 600 With Vitamin D 600 mg(1,500mg) -200 unit Oral tab - PMHx: Hot flashes; Hypercholesterolemia; Hypertension; Herpes; melanoma; - PSHx: Tubal ligation; Hysterectomy; radial groin disection; - Social history: Smoking status: No barriers to communication noted, Speaks appropriately for age, Smoking status: Patient states former smoker of tobacco. - Family history: No immediate family members are acutely ill. - : The pt / caregiver states he / she is not on anticoagulants. Home medication list is obtained from the patient. - Exposure Risk Screening:: None identified. Vital Signs: 04/12 11:11 BP 164 / 82; Pulse 103; Resp 20; Temp 100.0(O); Pulse Ox 98% on R/A; Weight 72.57 kg / elp 159.99 lbs (R); Height 5 ft. 7 in. (170.18 cm) (R); Pain 10/10; 12:36 BP 143 / 77; Pulse 105; ar3 14:24 BP 154 / 80; Pulse 101; Resp 20; Temp 100.1(O); Pulse Ox 97% on R/A; Pain 1/10; dwg 11:11 Body Mass Index 25.06 (72.57 kg, 170.18 cm) elp MDM: 12:44 Urine Dip ordered. ef1 12:45 Urine Culture Ordered. EDMS 12:51 Ondansetron 4 mg IVP once ordered. ef1 12:51 IV Saline Lock ordered. ef1 12:51 Undress patient appropriately for examination ordered. ef1 12:51 ketorolac 15 mg IVP once ordered. ef1 12:52 Amylase Ordered. EDMS 12:52 Basic Metabolic Profile Ordered. EDMS 12:52 CBC with Diff Ordered. EDMS 12:52 Lipase Ordered. EDMS 12:52 Liver Profile Ordered. EDMS 12:52 CT ABD & PELVIS: No Contrast Ordered. EDMS 12:52 NOTHING BY MOUTH+DIET ordered. EDMS 14:14 Basic Metabolic Profile Reviewed. ef1 14:14 CBC with Diff Reviewed. ef1 14:14 Amylase Reviewed. ef1 14:14 Lipase Reviewed. ef1 14:14 Liver Profile Reviewed. ef1 14:20 Recheck Vital Signs, perform reassessment and enter into [employer] ordered. ef1 14:23 [facility] Payment Agreement was scanned into [employer] and attached to record. jp5 14:23 Financial registration complete. jp5 14:28 Ciprofloxacin 500 mg PO once ordered. ef1 14:28 metroNIDAZOLE 500 mg PO once ordered. ef1 14:28 Acetaminophen Tablet 650 mg PO once ordered. ef1 19:16 T-Sheet-- Draft Copy was scanned into [employer] and attached to record. klr Point of Care Testing: Urine Dip: 12:47 pH: 7; ; Specific [place]: 1.015; Ketones: Negative; Glucose: Positive; Protein: jjr Negative; Leukocytes: Negative; Nitrite: Negative ; Blood: Negative; Bilirubin: Negative ; Urobilinogen: Normal Ranges: Administered Medications: 13:24 Drug: ketorolac 15 mg [ketorolac 30 mg/mL (1 mL) injection solution (0.5 mL)] Route: dwg IVP; Site: right antecubital; 13:56 Follow up: Response: Pain is decreased dwg 13:25 Drug: Ondansetron 4 mg Route: IVP; Site: right antecubital; dwg 13:56 Follow up: Response: Nausea is resolved dwg 14:37 Drug: Acetaminophen 650 mg [acetaminophen 325 mg tablet (2 tabs)] Route: PO; dls 14:37 Follow up: Response: Pt left department before re-evaluation is appropriate dls 14:38 Drug: Ciprofloxacin 500 mg [ciprofloxacin 500 mg tablet (1 tabs)] Route: PO; dls 14:38 Drug: metroNIDAZOLE 500 mg [metronidazole 250 mg tablet (2 tabs)] Route: PO; dls 14:38 Follow up: Response: Pt left department before re-evaluation is appropriate dls Signatures: Dispatcher [employer] EDShawn Reynolds RN RN g Ginger Fraire PA-C PASanjeev ef1 Janell Brothers,RN RN rs3 Lala Edwards jp5 Estelita Tovar Debra RN dls The chart was reviewed and I authenticate all verbal orders and agree with the evaluation and treatment provided.Attachments: 14:23 [facility] Payment Agreement jp5 19:16 T-Sheet-- Draft Copy kl Chart Complete MTDD
== END 2016-04-12 14:54 | disposition home or self-care (01) ==
LOC: M ED 11:10
DX: K57.32 Diverticulitis of large intestine without perforation or abscess without bleeding (principal); I10 Essential (primary) hypertension; B00.9 Herpesviral infection, unspecified; E78.00 Pure hypercholesterolemia, unspecified; N95.1 Menopausal and female climacteric states; Z79.899 Other long term (current) drug therapy; Z79.82 Long term (current) use of aspirin
CPT/HCPCS: 36415; 74176; 80048; 80076; 82150; 83690; 85025; 87086; 96374; 96375; 99284; J1885; J2405

== ENCOUNTER → 2016-05-07 | Outpatient (REF) | payer OTHER | LOC: M SFHCPLAZ 15:48 | PROVIDERS: ATTEND Dermatology | DX: L43.8 Other lichen planus (principal) | CPT/HCPCS: 11100; 17110; 88305; G0463 ==

== ENCOUNTER → 2016-06-04 | Outpatient (REF) | payer OTHER ==
[2016-06-04 13:50] LABS: ALBUMIN 3.8 GM/DL (3.2-5.2); ALBUMIN/GLOBULIN RATIO 1.36 (1.00-1.93); ALKALINE PHOSPHATASE 59 U/L (45-117); ALT/SGPT 33 U/L (12-78); ANION GAP 6 MEQ/L (8-16); AST/SGOT 22 U/L (15-37); BILIRUBIN,TOTAL 0.4 MG/DL (0.2-1.0); BLOOD UREA NITROGEN 13 MG/DL (7-18); CALCIUM LEVEL 8.9 MG/DL (8.8-10.2); CARBON DIOXIDE LEVEL 35 MEQ/L (21-32); CHLORIDE LEVEL 101 MEQ/L (98-107); CHOLESTEROL LEVEL 166 MG/DL (<200); CREATININE FOR GFR 0.63 MG/DL (0.55-1.02); GLOMERULAR FILTRATION RATE > 60.0 (>45); GLUCOSE, FASTING 99 MG/DL (80-110); POTASSIUM SERUM 3.9 MEQ/L (3.5-5.1); SODIUM LEVEL 142 MEQ/L (136-145); TOTAL PROTEIN 6.6 GM/DL (6.4-8.2); TRIGLYCERIDES LEVEL 105 MG/DL (<150)
== END ==
LOC: M SFHCPLAZ 10:57
PROVIDERS: ATTEND Internal Medicine
DX: I10 Essential (primary) hypertension (principal); E78.00 Pure hypercholesterolemia, unspecified

== ENCOUNTER → 2016-07-10 | Outpatient (CLI) | payer OTHER ==
--- NOTE | 2016-07-10 15:39 | REPMRS ---
Patient History The patient states she had a clinical breast exam in 06/2016. Patient is postmenopausal and has history of other cancer at age 49. Family history of breast cancer in mother at age 50 or over and breast cancer in maternal aunt at age 50 or over. Benign lumpectomy of the right breast. Digital Woman Screen Mammo: July 10, 2016 - Exam #: [id number] Bilateral CC and MLO view(s) were taken. Technologist: Charo Mooney, Technologist Prior study comparison: June 20, 2015, digital woman screen mammo performed at [facility]. June 12, 2014, digital woman screen mammo performed at [facility]. FINDINGS: The breast tissue is heterogeneously dense. This may lower the sensitivity of mammography. There has been no change in the appearance of the mammogram from the prior studies. There is a moderate amount of residual fibroglandular tissue which is fairly symmetric. There is no interval development of dominant mass, areas of architectural distortion, or clustered microcalcification typical of malignancy. ASSESSMENT: BI-RADS/ACR category 1 mammogram. Negative. Given the dense breast parenchyma and family history, MRI breasts recommended. Recommendation Routine screening mammogram in 1 year (for women over age 40). This mammogram was interpreted with the aid of an FDA-approved computer-aided dectection system. Electronically Signed By: Shawn Elias MD 07/10/16 [id number]
== END ==
LOC: M WHC 13:51
PROVIDERS: ATTEND Nurse Practitioner Family
DX: Z01.419 Encounter for gynecological examination (general) (routine) without abnormal findings (principal); Z12.31 Encounter for screening mammogram for malignant neoplasm of breast; Z12.39 Encounter for other screening for malignant neoplasm of breast; Z12.12 Encounter for screening for malignant neoplasm of rectum
CPT/HCPCS: 82270; G0101; G0202

== ENCOUNTER → 2016-12-04 | Outpatient (REF) | payer OTHER ==
[2016-12-04 16:06] LABS: ALBUMIN 3.8 GM/DL (3.2-5.2); ALBUMIN/GLOBULIN RATIO 1.19 (1.00-1.93); ALKALINE PHOSPHATASE 65 U/L (45-117); ALT/SGPT 33 U/L (12-78); ANION GAP 3 MEQ/L (8-16); AST/SGOT 21 U/L (15-37); BILIRUBIN,TOTAL 0.3 MG/DL (0.2-1.0); BLOOD UREA NITROGEN 16 MG/DL (7-18); CARBON DIOXIDE LEVEL 37 MEQ/L (21-32); CHLORIDE LEVEL 100 MEQ/L (98-107); CREATININE FOR GFR 0.63 MG/DL (0.55-1.02); GLOMERULAR FILTRATION RATE > 60.0 (>45); GLUCOSE, FASTING 81 MG/DL (80-110); POTASSIUM SERUM 3.4 MEQ/L (3.5-5.1); SODIUM LEVEL 140 MEQ/L (136-145)
== END ==
LOC: M SFHCPLAZ 13:19
PROVIDERS: ATTEND Internal Medicine
DX: R73.01 Impaired fasting glucose (principal)

== ENCOUNTER → 2016-12-16 | Outpatient (REF) | payer OTHER | LOC: M SFHCLERA 11:34 | PROVIDERS: ATTEND Dermatology | DX: D23.62 Other benign neoplasm of skin of left upper limb, including shoulder (principal); D04.5 Carcinoma in situ of skin of trunk; L57.0 Actinic keratosis; C44.722 Squamous cell carcinoma of skin of right lower limb, including hip ==

== ENCOUNTER → 2017-01-14 | Outpatient (REF) | payer OTHER | LOC: M SFHCPLAZ 09:25 | PROVIDERS: ATTEND Nurse Practitioner Adult Health | DX: D86.9 Sarcoidosis, unspecified (principal); Z23 Encounter for immunization; Z28.21 Immunization not carried out because of patient refusal ==

== ENCOUNTER → 2017-04-21 | Outpatient (REF) | payer OTHER | LOC: M SFHCLERA 12:45 | DX: L98.9 Disorder of the skin and subcutaneous tissue, unspecified (principal) | CPT/HCPCS: 88305 ==

== ENCOUNTER → 2017-06-01 | Outpatient (REF) | payer OTHER ==
[2017-06-01 12:17] LABS: HEMATOCRIT 41.8 % (36.0-47.0); MEAN CORPUSCULAR HGB CONC 33.5 g/dl (32.0-36.5); MEAN CORPUSCULAR VOLUME 89.7 fl (80.0-96.0); PLATELET COUNT, AUTOMATED 240 10^3/uL (150-450); RED BLOOD COUNT 4.66 10^6/uL (4.00-5.40); RED CELL DISTRIBUTION WIDTH 12.5 % (11.5-14.5); WHITE BLOOD COUNT 7.3 10^3/uL (4.0-10.0)
[2017-06-01 12:43] LABS: ALBUMIN 3.8 GM/DL (3.2-5.2); ALBUMIN/GLOBULIN RATIO 1.15 (1.00-1.93); ALKALINE PHOSPHATASE 62 U/L (45-117); ALT/SGPT 33 U/L (12-78); ANION GAP 6 MEQ/L (8-16); AST/SGOT 25 U/L (7-37); BILIRUBIN,TOTAL 0.5 MG/DL (0.2-1.0); BLOOD UREA NITROGEN 15 MG/DL (7-18); CALCIUM LEVEL 9.2 MG/DL (8.8-10.2); CARBON DIOXIDE LEVEL 34 MEQ/L (21-32); CHLORIDE LEVEL 103 MEQ/L (98-107); CHOLESTEROL LEVEL 169 MG/DL (<200); CHOLESTEROL RISK RATIO 3.017 (<5); CREATININE FOR GFR 0.65 MG/DL (0.55-1.30); GLOMERULAR FILTRATION RATE > 60.0 (>45); GLUCOSE, FASTING 95 MG/DL (70-100); HDL CHOLESTEROL 56 MG/DL (>40); LDL CHOLESTEROL 93.4 MG/DL (<100); MAGNESIUM LEVEL 2.3 MG/DL (1.8-2.4); NON-HDL-C 113 MG/DL; SODIUM LEVEL 143 MEQ/L (136-145); TOTAL PROTEIN 7.1 GM/DL (6.4-8.2); TRIGLYCERIDES LEVEL 98 MG/DL (<150)
== END ==
LOC: M SFHCPLAZ 09:11
DX: D86.9 Sarcoidosis, unspecified (principal); I10 Essential (primary) hypertension; E78.00 Pure hypercholesterolemia, unspecified
CPT/HCPCS: 83735

== ENCOUNTER 2017-06-25 13:23 | Emergency (ER) | payer OTHER ==
[2017-06-25 14:34] LABS: BASO % 0.2 % (0.0-1.0); EOS # 0.1 10^3/uL (0.0-0.50); EOS % 0.6 % (0.0-3.0); HEMATOCRIT 38.3 % (36.0-47.0); IMMATURE GRANULOCYTE % 0.4 % (0-3.0); LYMPH # 1.5 10^3/uL (1.5-4.5); LYMPH % 9.1 % (24.0-44.0); MEAN CORPUSCULAR HEMOGLOBIN 30.2 pg (27.0-33.0); MEAN CORPUSCULAR HGB CONC 33.9 g/dl (32.0-36.5); MEAN CORPUSCULAR VOLUME 88.9 fl (80.0-96.0); MONO # 1.9 10^3/uL (0.0-0.8); MONO % 11.7 % (0.0-5.0); NEUTROPHILS # 12.4 10^3/uL (1.8-7.7); PLATELET COUNT, AUTOMATED 227 10^3/uL (150-450); RED BLOOD COUNT 4.31 10^6/uL (4.00-5.40); RED CELL DISTRIBUTION WIDTH 12.5 % (11.5-14.5); WHITE BLOOD COUNT 15.9 10^3/uL (4.0-10.0)
[2017-06-25 14:59] LABS: ALBUMIN 3.6 GM/DL (3.2-5.2); ALBUMIN/GLOBULIN RATIO 0.92 (1.00-1.93); ALKALINE PHOSPHATASE 73 U/L (45-117); ALT/SGPT 24 U/L (12-78); AMYLASE 28 U/L (25-115); ANION GAP 4 MEQ/L (8-16); AST/SGOT 16 U/L (7-37); BILIRUBIN,DIRECT < 0.1 MG/DL (0.0-0.2); BILIRUBIN,TOTAL 0.4 MG/DL (0.2-1.0); BLOOD UREA NITROGEN 12 MG/DL (7-18); CALCIUM LEVEL 8.8 MG/DL (8.8-10.2); CARBON DIOXIDE LEVEL 34 MEQ/L (21-32); CHLORIDE LEVEL 101 MEQ/L (98-107); CREATININE FOR GFR 0.64 MG/DL (0.55-1.30); GLOMERULAR FILTRATION RATE > 60.0 (>45); GLUCOSE, FASTING 94 MG/DL (70-100); LIPASE 115 U/L (73-393); POTASSIUM SERUM 3.2 MEQ/L (3.5-5.1); SODIUM LEVEL 139 MEQ/L (136-145); TOTAL PROTEIN 7.5 GM/DL (6.4-8.2)
[2017-06-25 15:07] LABS: LACTIC ACID SEPSIS PROTOCOL 1.1 MMOL/L (0.4-2.0)
[2017-06-25] MEDS ORDERED: ISOVUE-370 76% 100ML VIAL (Q9967) As Ordered (15:34)
[2017-06-25] MEDS: KETOROLAC 30 MG/ML VIAL (J1885) IV (15:58)
[2017-06-25] MEDS: ACETAMINOPHEN 325 MG TAB PO (16:50)
== END 2017-06-25 17:04 | disposition home or self-care (01) ==
LOC: M ED 13:23
DX: K57.32 Diverticulitis of large intestine without perforation or abscess without bleeding (principal); I10 Essential (primary) hypertension; F41.9 Anxiety disorder, unspecified; K59.00 Constipation, unspecified; Z85.820 Personal history of malignant melanoma of skin; Z87.891 Personal history of nicotine dependence; Z91.040 Latex allergy status; Z79.899 Other long term (current) drug therapy
CPT/HCPCS: Q9967

== ENCOUNTER → 2017-07-14 | Outpatient (CLI) | payer OTHER | LOC: M WHC 13:43 | DX: Z01.419 Encounter for gynecological examination (general) (routine) without abnormal findings (principal); Z12.31 Encounter for screening mammogram for malignant neoplasm of breast (principal); M85.80 Other specified disorders of bone density and structure, unspecified site; Z78.0 Asymptomatic menopausal state; Z80.3 Family history of malignant neoplasm of breast; Z92.89 Personal history of other medical treatment | CPT/HCPCS: 77067 ==

== ENCOUNTER → 2017-10-13 | Outpatient (REF) | payer OTHER ==
[2017-10-13 16:21] LABS: ALBUMIN 3.7 GM/DL (3.2-5.2); ALBUMIN/GLOBULIN RATIO 1.12 (1.00-1.93); ALKALINE PHOSPHATASE 66 U/L (45-117); ALT/SGPT 32 U/L (12-78); AST/SGOT 22 U/L (7-37); BILIRUBIN,DIRECT 0.1 MG/DL (0.0-0.2); BILIRUBIN,TOTAL 0.3 MG/DL (0.2-1.0)
== END ==
LOC: M SFHCPLAZ 14:33
DX: B35.1 Tinea unguium (principal)
CPT/HCPCS: 80076

== ENCOUNTER 2017-10-26 10:58 | Day surgery (SDC) | payer OTHER ==
[~2017-10-26 10:58] MED LIST: LIDOCAINE 2% INJ 100 MG/5 ML SDV (FOR ANES.) As Ordered; PROPOFOL 200 MG/20 ML VIAL As Ordered
[2017-10-26] MEDS ORDERED: MIDAZOLAM INJ 2 MG/2 ML VIAL (J2250) As Ordered (13:26)
[2017-10-26] MEDS ORDERED: fentaNYL 100 MCG/2 ML INJECTION (J3010) As Ordered (13:26)
[2017-10-26] MEDS ORDERED: PROPOFOL 200 MG/20 ML VIAL As Ordered (13:54)
== END 2017-10-26 14:33 | disposition home or self-care (01) ==
LOC: M OPP 10:58
DX: R93.3 Abnormal findings on diagnostic imaging of other parts of digestive tract (principal); R19.4 Change in bowel habit; R12 Heartburn; K31.7 Polyp of stomach and duodenum; K44.9 Diaphragmatic hernia without obstruction or gangrene; I10 Essential (primary) hypertension; E78.5 Hyperlipidemia, unspecified; K57.32 Diverticulitis of large intestine without perforation or abscess without bleeding; K21.9 Gastro-esophageal reflux disease without esophagitis; B00.1 Herpesviral vesicular dermatitis; M54.89 Other dorsalgia; Z85.820 Personal history of malignant melanoma of skin; Z92.21 Personal history of antineoplastic chemotherapy; D86.9 Sarcoidosis, unspecified; Z91.040 Latex allergy status; Z79.82 Long term (current) use of aspirin; Z79.899 Other long term (current) drug therapy; Z80.3 Family history of malignant neoplasm of breast; Z80.52 Family history of malignant neoplasm of bladder
CPT/HCPCS: 45378

== ENCOUNTER 2017-10-28 14:51 | Emergency (ER) | payer OTHER ==
[2017-10-28] MEDS: KETOROLAC 30 MG/ML VIAL (J1885) IV (17:01)
[2017-10-28] MEDS: ONDANSETRON 4MG/2ML VIAL (J2405) IV (17:01)
[2017-10-28] MEDS: NS 1,000 ML IV (17:02)
[2017-10-28 17:30] LABS: BASO % 0.2 % (0.0-1.0); EOS # 0.2 10^3/uL (0.0-0.50); EOS % 1.1 % (0.0-3.0); HEMATOCRIT 39.1 % (36.0-47.0); HEMOGLOBIN 13.4 g/dl (12.0-15.5); IMMATURE GRANULOCYTE % 0.4 % (0-3.0); LYMPH # 1.7 10^3/uL (1.5-4.5); LYMPH % 12.4 % (24.0-44.0); MEAN CORPUSCULAR HEMOGLOBIN 30.9 pg (27.0-33.0); MEAN CORPUSCULAR HGB CONC 34.3 g/dl (32.0-36.5); MEAN CORPUSCULAR VOLUME 90.1 fl (80.0-96.0); MONO # 1.5 10^3/uL (0.0-0.8); MONO % 10.5 % (0.0-5.0); NEUTROPHILS # 10.5 10^3/uL (1.8-7.7); NEUTROPHILS % 75.4 % (36.0-66.0); PLATELET COUNT, AUTOMATED 217 10^3/uL (150-450); RED BLOOD COUNT 4.34 10^6/uL (4.00-5.40); RED CELL DISTRIBUTION WIDTH 12.6 % (11.5-14.5)
[2017-10-28 17:40] LABS: ALBUMIN 3.7 GM/DL (3.2-5.2); ALBUMIN/GLOBULIN RATIO 0.93 (1.00-1.93); ALKALINE PHOSPHATASE 67 U/L (45-117); ALT/SGPT 31 U/L (12-78); AMYLASE 29 U/L (25-115); ANION GAP 6 MEQ/L (8-16); AST/SGOT 21 U/L (7-37); BILIRUBIN,DIRECT < 0.1 MG/DL (0.0-0.2); BILIRUBIN,TOTAL 0.4 MG/DL (0.2-1.0); BLOOD UREA NITROGEN 10 MG/DL (7-18); CALCIUM LEVEL 8.8 MG/DL (8.8-10.2); CARBON DIOXIDE LEVEL 34 MEQ/L (21-32); CHLORIDE LEVEL 101 MEQ/L (98-107); CREATININE FOR GFR 0.62 MG/DL (0.55-1.30); GLOMERULAR FILTRATION RATE > 60.0 (>45); GLUCOSE, FASTING 81 MG/DL (70-100); LIPASE 97 U/L (73-393); POTASSIUM SERUM 3.5 MEQ/L (3.5-5.1); SODIUM LEVEL 141 MEQ/L (136-145); TOTAL PROTEIN 7.7 GM/DL (6.4-8.2)
[2017-10-28] MEDS ORDERED: ISOVUE-370 76% 100ML VIAL (Q9967) As Ordered (17:42)
[2017-10-28 18:54] LABS: KETONE, URINE AUTO RFX NEGATIVE (NEGATIVE); NITRITE, URINE AUTO RFX NEGATIVE (NEGATIVE); RBC, URINE AUTO RFX 1 /HPF (0-3); SPECIFIC GRAVITY UR AUTO RFX 1.009 (1.002-1.035); SQUAM EPITHELIAL CELL UR AURFX 0 /HPF (0-6); WBC, URINE AUTO RFX 3 /HPF (0-3)
[2017-10-28 19:24] LABS: LEUKOCYTE ESTERASE UR AUTO RFX TRACE (NEGATIVE)
[2017-10-28] MEDS: metroNIDAZOLE (FLAGYL) 500 MG TAB PO (19:27)
[2017-10-28] MEDS: CIPROFLOXACIN 500 MG TAB PO (19:27)
== END 2017-10-28 19:32 | disposition home or self-care (01) ==
LOC: M ED 14:51
DX: K57.32 Diverticulitis of large intestine without perforation or abscess without bleeding (principal); I10 Essential (primary) hypertension; M54.9 Dorsalgia, unspecified; F41.9 Anxiety disorder, unspecified; K21.9 Gastro-esophageal reflux disease without esophagitis; K59.00 Constipation, unspecified; Z91.040 Latex allergy status; Z98.890 Other specified postprocedural states; Z79.899 Other long term (current) drug therapy; Z79.82 Long term (current) use of aspirin
CPT/HCPCS: J2405

== ENCOUNTER → 2017-12-09 | Outpatient (REF) | payer OTHER ==
[2017-12-09 17:40] LABS: ALBUMIN 4.1 GM/DL (3.2-5.2); ALBUMIN/GLOBULIN RATIO 1.28 (1.00-1.93); ALKALINE PHOSPHATASE 64 U/L (45-117); ALT/SGPT 33 U/L (12-78); ANION GAP 7 MEQ/L (8-16); AST/SGOT 25 U/L (7-37); BILIRUBIN,TOTAL 0.4 MG/DL (0.2-1.0); BLOOD UREA NITROGEN 11 MG/DL (7-18); CALCIUM LEVEL 9.1 MG/DL (8.8-10.2); CARBON DIOXIDE LEVEL 33 MEQ/L (21-32); CHLORIDE LEVEL 104 MEQ/L (98-107); CREATININE FOR GFR 0.71 MG/DL (0.55-1.30); GLOMERULAR FILTRATION RATE > 60.0 (>45); GLUCOSE, FASTING 95 MG/DL (70-100); MAGNESIUM LEVEL 2.2 MG/DL (1.8-2.4); POTASSIUM SERUM 3.7 MEQ/L (3.5-5.1); SODIUM LEVEL 144 MEQ/L (136-145); TOTAL 25(OH) VITAMIN D 51.6 NG/ML (30.0-100.0); TOTAL PROTEIN 7.3 GM/DL (6.4-8.2)
== END ==
LOC: M SFHCPLAZ 12:55
DX: I10 Essential (primary) hypertension (principal); M85.80 Other specified disorders of bone density and structure, unspecified site; E55.9 Vitamin D deficiency, unspecified
CPT/HCPCS: 83735

== ENCOUNTER 2017-12-22 13:21 | Emergency (ER) | payer OTHER | END 2017-12-22 14:48 | disposition home or self-care (01) | LOC: M ED 13:21 | DX: K04.7 Periapical abscess without sinus (principal); I10 Essential (primary) hypertension; Z79.899 Other long term (current) drug therapy; Z79.82 Long term (current) use of aspirin; Z91.040 Latex allergy status; Z87.891 Personal history of nicotine dependence | CPT/HCPCS: 99283 ==

== ENCOUNTER → 2018-02-14 | Outpatient (REF) | payer OTHER | LOC: M SFHCLERA 09:40 | DX: C44.629 Squamous cell carcinoma of skin of left upper limb, including shoulder (principal) | CPT/HCPCS: 88305 ==

== ENCOUNTER → 2018-02-21 | Outpatient (REF) | payer OTHER ==
[~2018-02-21] MED LIST changes: +ACYC400T PO; +ASPI1TAB PO; +BACT800T5 PO; +CALC500T49 PO; +CIPR-249 PO; +COLA100C5; +COLA100C5 PO; +DYAZ37.5 PO; +FLAG500T PO; +IBUP-1022 PO; -LIDOCAINE 2% INJ 100 MG/5 ML SDV (FOR ANES.) As Ordered; +MULT1TAB10 PO; +NORCOTAB PO; +OMEP40CA2 PO; +PENI500T PO; -PROPOFOL 200 MG/20 ML VIAL As Ordered; +RANI150T PO; +SIMV20TA2 PO; +TRIAMT/HCTZ; +VENL150C43; +VENL150C43 PO; +VITA100067 PO
== END ==
LOC: M SFHCWAGY 17:22
PROVIDERS: ATTEND Nurse Practitioner Family
DX: R30.0 Dysuria (principal)
CPT/HCPCS: 81002; 87086; G0463

== ENCOUNTER 2018-03-20 11:05 | Emergency (ER) | payer MEDICARE, OTHER ==
[~2018-03-20] VITALS: Ht 170.2 cm; Wt 72.7 kg
[2018-03-20 11:43] LABS: BASO # 0.1 10^3/uL (0.0-0.2); BASO % 0.3 % (0.0-1.0); EOS # 0.1 10^3/uL (0.0-0.50); EOS % 0.3 % (0.0-3.0); HEMATOCRIT 40.2 % (36.0-47.0); HEMOGLOBIN 13.9 g/dl (12.0-15.5); LYMPH # 1.3 10^3/uL (1.5-4.5); LYMPH % 7.2 % (24.0-44.0); MEAN CORPUSCULAR HEMOGLOBIN 30.9 pg (27.0-33.0); MEAN CORPUSCULAR HGB CONC 34.6 g/dl (32.0-36.5); MEAN CORPUSCULAR VOLUME 89.3 fl (80.0-96.0); MONO # 1.5 10^3/uL (0.0-0.8); MONO % 8.3 % (0.0-5.0); NEUTROPHILS # 14.5 10^3/uL (1.8-7.7); NEUTROPHILS % 83.3 % (36.0-66.0); PLATELET COUNT, AUTOMATED 255 10^3/uL (150-450); WHITE BLOOD COUNT 17.4 10^3/uL (4.0-10.0)
[2018-03-20 12:07] LABS: ALBUMIN 3.7 GM/DL (3.2-5.2); ALT/SGPT 28 U/L (12-78); AMYLASE 29 U/L (25-115); BILIRUBIN,DIRECT 0.1 MG/DL (0.0-0.2); BILIRUBIN,TOTAL 0.3 MG/DL (0.2-1.0); BLOOD UREA NITROGEN 14 MG/DL (7-18); CALCIUM LEVEL 8.5 MG/DL (8.8-10.2); CARBON DIOXIDE LEVEL 31 MEQ/L (21-32); CHLORIDE LEVEL 102 MEQ/L (98-107); CREATININE FOR GFR 0.68 MG/DL (0.55-1.30); GLOMERULAR FILTRATION RATE > 60.0 (>45); GLUCOSE, FASTING 110 MG/DL (70-100); LIPASE 109 U/L (73-393); POTASSIUM SERUM 3.3 MEQ/L (3.5-5.1); SODIUM LEVEL 141 MEQ/L (136-145); TOTAL PROTEIN 7.1 GM/DL (6.4-8.2)
[2018-03-20 12:13] LABS: INFLUENZA A AMPLIFICATION NEGATIVE (NEGATIVE); INFLUENZA B AMPLIFICATION NEGATIVE (NEGATIVE)
--- NOTE | 2018-03-20 12:32 | REP ---
Chest two views HISTORY: Cough Comparison: 07/04/2014 The lungs are clear. The cardiac silhouette is enlarged. The pulmonary vasculature is normal in appearance. The bony structure is intact. IMPRESSION: Cardiomegaly. Electronically Signed by Koby Branch MD 03/20/2018 12:24 P
[2018-03-20] MEDS ORDERED: ISOVUE-370 76% 100ML VIAL (Q9967) As Ordered ONE (12:35)
[2018-03-20] MEDS ORDERED: metroNIDAZOLE 500 MG in APPROPRIATE DILUENT 1 EA IV ONE (14:00)
[2018-03-20] MEDS ORDERED: CIPROFLOXACIN 400 MG in APPROPRIATE DILUENT 1 EA IV ONE (14:00)
--- NOTE | 2018-03-20 14:17 | REP ---
CT ABDOMEN/PELVIS WITH CONTRAST: HISTORY: Left lower quadrant pain. CONTRAST: Isovue-370, 100 mL. COMPARISON: 10/28/2017 The gallbladder is contracted. A 2.6 cm cyst is present in the right kidney. A 6 mm cyst is present in the left kidney. The liver, pancreas, spleen, and adrenal glands are normal in appearance. There is no mass, adenopathy, or free fluid. A large hiatal hernia is present. The visualized lungs are clear. Diverticula are present in the descending and sigmoid colon. Stranding is present in the fat adjacent to a segment of sigmoid colon. This is consistent with diverticulitis. The patient is status post hysterectomy. The urinary bladder is normal in appearance. IMPRESSION: 1. Small contracted gallbladder. 2. Bilateral renal cysts. 3. Large hiatal hernia 4. Findings consistent with sigmoid colon diverticulitis. 5. The patient is status post hysterectomy. Electronically Signed by Koby Branch MD 03/20/2018 02:28 P
[2018-03-20] MEDS ORDERED: FLAG500T PO (15:33)
[2018-03-20] MEDS ORDERED: CIPR-249 PO (15:33)
[2018-03-20 16:15] VITALS: BP 131/70
== END 2018-03-20 16:33 | disposition home or self-care (01) ==
LOC: M ED 11:05
DX: K57.92 Diverticulitis of intestine, part unspecified, without perforation or abscess without bleeding (principal); I11.9 Hypertensive heart disease without heart failure; E78.00 Pure hypercholesterolemia, unspecified; K21.9 Gastro-esophageal reflux disease without esophagitis; Z79.899 Other long term (current) drug therapy; Z91.040 Latex allergy status
CPT/HCPCS: 36415; 71046; 74177; 80048; 80076; 81001; 82150; 83690; 85025; 87502; 96365; 96366; 96368; 99284; J0744; Q9967

== ENCOUNTER → 2018-07-15 | Outpatient (CLI) | payer OTHER ==
[~2018-07-15] MED LIST changes: -ASPI1TAB PO; +ASPI81TA26 PO; +HYDR-3715 PO; -NORCOTAB PO
--- NOTE | 2018-07-15 15:06 | REPMRS ---
Patient History The patient states she had a clinical breast exam in 07/2018. Family history of breast cancer at age 50 or over in mother, breast cancer at age 50 or over in maternal aunt. Benign lumpectomy of the right breast. 3D TOMOSYNTHESIS WAS PERFORMED. Digital Woman Screen Mammo: July 15, 2018 - Exam #: [id number] Bilateral CC and MLO view(s) were taken. Technologist: Zeny Gonzalez, Technologist Prior study comparison: July 14, 2017, digital woman screen mammo performed at [facility]. July 10, 2016, digital woman screen mammo performed at [facility]. FINDINGS: The breast tissue is heterogeneously dense. This may lower the sensitivity of mammography. There has been no change in the appearance of the mammogram from the prior studies. There is a moderate amount of residual fibroglandular tissue which is fairly symmetric. There is no interval development of dominant mass, areas of architectural distortion, or clustered microcalcification typical of malignancy. Assessment: BI-RADS/ACR category 1 mammogram. Negative Mammogram. Recommendation Routine screening mammogram in 1 year (for women over age 40). This mammogram was interpreted with the aid of an FDA-approved computer-aided dectection system. Electronically Signed By: Shawn Elias MD 07/15/18 [id number]
== END ==
LOC: M WHC 14:13
PROVIDERS: ATTEND Nurse Practitioner Family
DX: Z01.419 Encounter for gynecological examination (general) (routine) without abnormal findings (principal); Z12.31 Encounter for screening mammogram for malignant neoplasm of breast; Z86.018 Personal history of other benign neoplasm; Z80.3 Family history of malignant neoplasm of breast
CPT/HCPCS: 77063; 77067; G0101

== ENCOUNTER → 2018-11-15 | Outpatient (REF) | payer OTHER ==
[2018-11-15 12:27] LABS: HEMATOCRIT 41.6 % (36.0-47.0); HEMOGLOBIN 13.9 g/dl (12.0-15.5); MEAN CORPUSCULAR HEMOGLOBIN 30.6 pg (27.0-33.0); MEAN CORPUSCULAR HGB CONC 33.4 g/dl (32.0-36.5); MEAN CORPUSCULAR VOLUME 91.6 fl (80.0-96.0); PLATELET COUNT, AUTOMATED 237 10^3/uL (150-450); RED BLOOD COUNT 4.54 10^6/uL (4.00-5.40); WHITE BLOOD COUNT 8.5 10^3/uL (4.0-10.0)
[2018-11-15 13:07] LABS: ALBUMIN 3.9 GM/DL (3.2-5.2); ALT/SGPT 31 U/L (12-78); BILIRUBIN,TOTAL 0.5 MG/DL (0.2-1.0); BLOOD UREA NITROGEN 17 MG/DL (7-18); CALCIUM LEVEL 9.1 MG/DL (8.8-10.2); CARBON DIOXIDE LEVEL 36 MEQ/L (21-32); CHLORIDE LEVEL 103 MEQ/L (98-107); CHOLESTEROL LEVEL 182 MG/DL (<200); CHOLESTEROL RISK RATIO 3.192 (<5); CREATININE FOR GFR 0.72 MG/DL (0.55-1.30); GLOMERULAR FILTRATION RATE > 60.0 (>45); GLUCOSE, FASTING 88 MG/DL (70-100); HDL CHOLESTEROL 57 MG/DL (>40); LDL CHOLESTEROL 97 MG/DL (<100); MAGNESIUM LEVEL 2.2 MG/DL (1.8-2.4); NON-HDL-C 125 MG/DL; POTASSIUM SERUM 3.7 MEQ/L (3.5-5.1); SODIUM LEVEL 142 MEQ/L (136-145); THYROID STIMULATING HORMONE 0.743 uIU/ML (0.358-3.740); TOTAL PROTEIN 6.9 GM/DL (6.4-8.2); TRIGLYCERIDES LEVEL 138 MG/DL (<150)
== END ==
LOC: M SFHCPLAZ 08:33
PROVIDERS: ATTEND Internal Medicine
DX: D86.9 Sarcoidosis, unspecified (principal); I10 Essential (primary) hypertension; E78.00 Pure hypercholesterolemia, unspecified; F32.9 Major depressive disorder, single episode, unspecified

== ENCOUNTER → 2018-12-01 | Outpatient (CLI) | payer OTHER ==
[~2018-12-01] MED LIST changes: +ASPI81CH33 PO; +CALCCAP4 PO; +MULTCAP PO; +PROHANCE 279.3MG/ML 15ML VIAL (A9576) As Ordered ONE
--- NOTE | 2018-12-01 18:52 | REPVR ---
PROCEDURE INFORMATION: Exam: MR Head Without and With Contrast Exam date and time: 12/01/2018 6:16 PM Clinical history: 68 years old, female; Patient HX: Hearing loss tinitus TECHNIQUE: Imaging protocol: MR of the head without and with intravenous contrast. 3D rendering: MIP reconstructed images were created and reviewed. Contrast material: PROHANCE; Contrast volume: 14 ml; Contrast route: 22G ANGIO; COMPARISON: No relevant prior studies available. FINDINGS: Brain: Multiple foci of T2 lengthening are demonstrated in the subcortical, periventricular, pontine, and centrum semiovale white matter consistent with age-related small vessel gliosis. No CP angle mass. Normal appearance of the seventh and eighth nerves bilaterally. Ventricles: Normal. No ventriculomegaly. Bones/joints: Unremarkable. Soft tissues: Unremarkable. Sinuses: Normal as visualized. No acute sinusitis. Mastoid air cells: Normal as visualized. No mastoid effusion. Orbits: Unremarkable. IMPRESSION: 1. Multiple foci of T2 lengthening are demonstrated in the subcortical, periventricular, pontine, and centrum semiovale white matter consistent with age-related small vessel gliosis. 2. No evidence of a CP angle mass or abnormality of the seventh or eighth nerves. Electronically signed by: Justin Mcgowan On 12/01/2018 18:52:08 PM
== END ==
LOC: M RAD 16:35
PROVIDERS: ATTEND Otolaryngology
DX: H91.90 Unspecified hearing loss, unspecified ear (principal)
CPT/HCPCS: 70553; A9576

== ENCOUNTER → 2018-12-02 | Outpatient (REF) | payer OTHER ==
[~2018-12-02] MED LIST changes: -PROHANCE 279.3MG/ML 15ML VIAL (A9576) As Ordered ONE
== END ==
LOC: M SFHCPLAZ 19:15
PROVIDERS: ATTEND Dermatology
DX: L57.0 Actinic keratosis (principal)
CPT/HCPCS: 11102; 11103; 88305; G0463

== ENCOUNTER → 2019-03-30 | Outpatient (REF) | payer OTHER ==
[~2019-03-30] MED LIST changes: -OMEP40CA2 PO; +OMEP40CA97 PO; -SIMV20TA2 PO; +SIMV20TA22 PO
== END ==
LOC: M LAB REF 09:27
PROVIDERS: ATTEND Dermatology
DX: L72.0 Epidermal cyst (principal)

== ENCOUNTER 2019-03-31 12:53 | Emergency (ER) | payer OTHER ==
[~2019-03-31] VITALS: Ht 170.2 cm; Wt 74.8 kg
[2019-03-31 12:53] VITALS: BP 145/80
[2019-03-31] MEDS ORDERED: PENI500T PO (13:46)
== END 2019-03-31 14:01 | disposition home or self-care (01) ==
LOC: M ED 12:53
DX: K04.7 Periapical abscess without sinus (principal); I10 Essential (primary) hypertension; Z88.8 Allergy status to other drugs, medicaments and biological substances; Z91.040 Latex allergy status; Z79.899 Other long term (current) drug therapy; R68.84 Jaw pain

== ENCOUNTER → 2019-07-19 | Outpatient (CLI) | payer OTHER ==
--- NOTE | 2019-07-19 15:57 | REPMRS ---
Patient History The patient states she had a clinical breast exam in July 2019.Family history of breast cancer at age 50 or over in mother, breast cancer at age 50 or over in maternal aunt. Benign lumpectomy of the right breast. Digital Woman Screen Mammo: July 19, 2019 - Exam #: [id number] Bilateral CC and MLO view(s) were taken. Technologist: Kelly Cantu, Technologist Prior study comparison: July 15, 2018, bilateral digital woman screen mammo performed at [facility]. July 14, 2017, digital woman screen mammo performed at [facility]. July 10, 2016, digital woman screen mammo performed at [facility]. FINDINGS: The breast tissue is heterogeneously dense. This may lower the sensitivity of mammography. The Volpara volumetric breast density category is: C. There is a moderate amount of heterogeneously dense fibroglandular tissue which is fairly symmetric. There is no interval development of dominant mass, architectural distortion, or grouped microcalcification typical of malignancy. There has been no change in the appearance of the mammogram from the prior studies. 3-D tomosynthesis shows no additional findings. Assessment: BI-RADS/ACR category 1 mammogram. Negative Mammogram. Recommendation Routine screening mammogram of both breasts in 1 year (for women over age 40). This patient's Lifetime Breast Cancer RIsk is estimated at 9.5 %. This mammogram was interpreted with the aid of an FDA-approved computer-aided dectection system. Electronically Signed By: Max Penny MD 07/19/19 [id number]
== END ==
LOC: M WHC 14:15
PROVIDERS: ATTEND Nurse Practitioner Family
DX: Z12.31 Encounter for screening mammogram for malignant neoplasm of breast (principal); Z80.3 Family history of malignant neoplasm of breast

== ENCOUNTER → 2019-07-19 | Outpatient (CLI) | payer OTHER | LOC: M PLALAB 15:34 | PROVIDERS: ATTEND Nurse Practitioner Family | DX: Z80.3 Family history of malignant neoplasm of breast (principal); Z80.52 Family history of malignant neoplasm of bladder; Z80.8 Family history of malignant neoplasm of other organs or systems ==

== ENCOUNTER → 2019-08-09 | Outpatient (REF) | payer OTHER | LOC: M LAB REF 08:34 | PROVIDERS: ATTEND Dermatology | DX: L82.1 Other seborrheic keratosis (principal) ==

== ENCOUNTER → 2019-12-19 | Outpatient (REF) | payer OTHER | LOC: M LAB REF 08:23 | PROVIDERS: ATTEND Dermatology | DX: L85.9 Epidermal thickening, unspecified (principal) ==

== ENCOUNTER → 2019-12-19 | Outpatient (CLI) | payer OTHER ==
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
== END ==
LOC: M PAIN 08:30
PROVIDERS: ATTEND Family Medicine
DX: M54.9 Dorsalgia, unspecified (principal); M25.512 Pain in left shoulder; K21.9 Gastro-esophageal reflux disease without esophagitis; E78.00 Pure hypercholesterolemia, unspecified; E55.9 Vitamin D deficiency, unspecified; I10 Essential (primary) hypertension; D49.2 Neoplasm of unspecified behavior of bone, soft tissue, and skin; B07.8 Other viral warts; Z86.59 Personal history of other mental and behavioral disorders; Z87.891 Personal history of nicotine dependence; Z88.1 Allergy status to other antibiotic agents; Z88.8 Allergy status to other drugs, medicaments and biological substances; Z79.82 Long term (current) use of aspirin; Z79.899 Other long term (current) drug therapy
CPT/HCPCS: 11102; 17110; G0463

== ENCOUNTER → 2020-01-16 | Outpatient (CLI) | payer OTHER | LOC: M PAIN 11:30 | PROVIDERS: ATTEND Family Medicine | DX: Z53.20 Procedure and treatment not carried out because of patient's decision for unspecified reasons (principal) ==

== ENCOUNTER → 2020-01-17 | Outpatient (CLI) | payer OTHER ==
--- NOTE | 2020-01-20 23:01 | ECWPNPC ---
PATIENT NAME: INDU BO : 1950 GENDER: FEMALE VISIT DATE: 01/17/2020 DISCHARGE DATE: 01/17/20 1046 VISIT LOCKED DATE TIME: PHYSICIAN: [place] MORAN PHYSICIAN PAGER NO: ACTIVE RESOURCE: [place] MORAN REASON FOR APPOINTMENT 1. MRI REVIEW HISTORY OF PRESENT ILLNESS DEPRESSION SCREENING: PHQ-2 (2015 EDITION) LITTLE INTEREST OR PLEASURE IN DOING THINGS?NOT AT ALL FEELING DOWN, DEPRESSED, OR HOPELESS?NOT AT ALL TOTAL SCORE0 69-YEAR-OLD FEMALE IN FOR CHRONIC PAIN FOLLOW-UP. PATIENT HAD RECENT MRI WHICH WILL BE REVIEWED WITH PATIENT TODAY. SHE RATES HER PAIN CURRENTLY AT A 3 OUT OF 10 AND DESCRIBES IT ACHING, AND CONTINUOUS. GENERAL: -. FALL RISK SCREENING: SCREENING :NO FALLS REPORTED IN THE LAST YEAR PAIN SCREENING: PATIENT HAS A COMPLAINT OF ACUTE OR CHRONIC PAIN :YES LOCATION OF PAIN:LEFT SHOULDER, LOW BACK, LEFT HIP INTENSITY OF PAIN (SCALE OF 1 TO 10):3 WHAT DOES YOUR PAIN FEEL LIKE:ACHING, CONTINOUS DURATION:CONTINOUS, CONSTANT PAIN IS INCREASED BY:ACTIVITIES PAIN IS DECREASED BY:USE OF PAIN MEDICATIONS, SITTING NURSING NOTE: -. PAIN CENTER INTAKE QUESTIONS: DO YOU HAVE A HISTORY OF MRSA? :NO DO YOU TAKE A BLOOD THINNERS? :NO DO YOU HAVE ANY BLEEDING DISORDERS? :NO ANY NEW NUMBNESS OR WEAKNESS IN YOUR LEGS OR ARMS? :NO ANY PACEMAKER,DEFIBRILLATOR, OR DORSAL COLUMN STIMULATOR? :NO DO YOU HAVE ANY RASHES OR OPEN SORES? :NO ARE YOU ALLERGIC TO IV DYE? :NO ARE YOU DIABETIC? :NO ANY NEW PROBLEMS WITH YOUR MEDICATIONS? :NO HAVE YOU RECEIVED A VACCINE IN THE PAST 30 DAYS? :YES FFLU VACCINE 12/27 DO YOU PLAN TO RECEIVE A VACCINE IN THE NEXT 21 DAYS? :NO DO YOU NEED ANY PRESCRIPTION? :NO DO YOU TAKE ANY IMMUNOSUPPRESSIVE MEDICATIONS? :NO IS THERE A CHANCE YOU COULD BE ? :NO ARE YOU BREAST FEEDING? :NO CURRENT MEDICATIONS TAKING MULTIVITAMINS OTC TABLET 1 TABLET ORALLY ONCE A DAY TAKING ASPIRIN 81 MG TABLET DISPERSIBLE 1 TABLET ORALLY ONCE A DAY TAKING CALCIUM 600+D3 600-800 MG-UNIT TABLET 1 TABLET ORALLY THREE TIMES A DAY TAKING IBUPROFEN 600 MG TABLET 1 TAB(S) ORALLY NEEDED TAKING MIRALAX - PACKET 1 PACKET MIXED WITH 8 OUNCES OF FLUID ORALLY ONCE A DAY TAKING ZOCOR 20 MG TABLET TAKE 1 TABLET ONE TIME DAILY IN THE EVENING TAKING DYAZIDE 37.5-25 MG CAPSULE TAKE 1 CAPSULE ONE TIME DAILY IN THE MORNING TAKING OMEPRAZOLE 40 MG CAPSULE DELAYED RELEASE TAKE 1 CAPSULE TWICE DAILY TAKING ACYCLOVIR 400 MG TABLET TAKE 1 TABLET EVERY DAY TAKING VENLAFAXINE HCL ER 150 MG CAPSULE EXTENDED RELEASE 24 HOUR TAKE 1 CAPSULE EVERY DAY TAKING DICLOFENAC SODIUM 50 MG TABLET DELAYED RELEASE 1 TABLET ORALLY TWICE A DAY, NOTES: NOT IN PAST YEAR TAKING CYCLOBENZAPRINE HCL 10 MG TABLET 1 TABLET AT BEDTIME NEEDED ORALLY ONCE A DAY, NOTES: NOT IN PAST MONTH NOT-TAKING RANITIDINE HCL 150 MG TABLET 1 TABLET ORALLY TWICE DAILY MEDICATION LIST REVIEWED AND RECONCILED WITH THE PATIENT PAST MEDICAL HISTORY HX 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 HX V10.83 PERSONAL HX OF MALIGNANT MELANOMA, CHEMOTHERAPY, 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 SARCOIDOSIS GASTROESOPHAGEAL REFLUX ALLERGIC RHINITIS OSTEOPENIA IMPAIRED FASTING GLUCOSE HYPERCHOLESTEROLEMIA VITAMIN D DEFICIENCY DEPRESSION IRRITABLE BOWEL SYNDROME HYPERTENSION TYRER CUZICK SCORE 9.09% ALLERGIES RELAFEN: ALLERGY CEFTIN: DIARRHEA - SIDE EFFECTS LISINOPRIL: COUGH - SIDE EFFECTS - ONSET DATE 08/09/2019 SURGICAL HISTORY BILATERAL TUBAL LIGATION REMOVAL MM L THIGH 0.68 MM IN DEPTH 04/1999 RADICAL GROIN RESECTION 2001 TVH AND A&P REPAIR WITH OVARIES PRESERVED 12/17 COLONOSCOPY 2007 PLANTAR FASCITIS 2008 UPPER ENDOSCOPY 2008 EGD/ INCOMPLETE COLONOSCOPY DUE TO POOR PREP 2014 EGD (HIATAL HERNIA) AND COLONOSCOPY (POOR PREP); WILLL NEED ANOTHER COLONOSCOPY IN 2 YEARS WITH BETTER PREP 10/2017 FAMILY HISTORY FATHER: ALIVE, HYPERLIPIDEMIA, HX BLADDER CANCER MOTHER: ALIVE, OSTEOPOROSIS, MVP WITH PACEMAKER, HYPERLIPIDEMIA, REFLUX, BREAST CANCER AT 75 WITH LUMPECTOMY AND RADIATION MATERNAL AUNT: ALIVE 68 YRS, BREAST CANCER @ 67 COUSIN WITH MM. FATHER IS LIVING AND HAD BLADDER CANCER, HAD A HERNIA REPAIR IN 2019 AND IS IN REHAB. MOTHER IS IN THE HALF-WAY--SOME DEMENTIA AND OTHER MEDICAL ISSUES. 2 BROTHERS AND 2 SISTERS ARE LIVING--ONE BROTHER HAD A CORONARY STENT, AND A SISTER HAS MULTIPLE ISSUES--PTSD, ARTHRITIS. WITH HEALTHY SONDENIES ANY FAMILY HX OF PANCREATIC CANCER. SOCIAL HISTORY GENERAL: TOBACCO USE ARE YOU A:NONSMOKER FORMER SMOKER LATEX QUESTIONNAIRE LATEX ALLERGY : HAVE YOU EVER DEVELOPED ANY TYPE OF REACTION AFTER HANDLING LATEX PRODUCTS SUCH RUBBER GLOVES, CONDOMS, DIAPHRAGMS, BALLOONS, SOCKS, OR UNDERWEAR?NO LATEX ALLERGY : HAVE YOU EVER DEVELOPED ANY TYPE OF REACTION DURING OR AFTER DENTAL APPOINTMENT, VAGINAL/RECTAL EXAMINATION, SURGICAL PROCEDURE, OR ANY OTHER EXPOSURE?NO LATEX RISK : HAVE YOU EVER HAD ANY DIFFICULTY BREATHING OR HIVES AFTER EATING OR HANDLING ANY FRUITS, OR VEGETABLES; SUCH KIWI, BANANAS, STONE FRUITS, OR CHESTNUTSNO LATEX RISK : DO YOU HAVE A PREVIOUS PERSONAL HISTORY OF MORE THAN NINE SURGERIES, SPINA BIFIDA, OR REPEATED CATHERIZATIONS? YES - PLEASE INDICATE : > 9 SURGERIES LATEX RISK : ARE YOU FREQUENTLY EXPOSED TO LATEX PRODUCTS IN YOUR OCCUPATION?NO DATE ASKED : 01/17/2020 BMI CARE GOAL FOLLOW-UP ABOVE NORMAL BMI FOLLOW-UPGIVING ENCOURAGEMENT TO EXERCISE ALCOHOL SCREENING DID YOU HAVE A DRINK CONTAINING ALCOHOL IN THE PAST YEAR?NO POINTS0 INTERPRETATIONNEGATIVE RECREATIONAL DRUG USE DRUG USE?NO PATIENT DENIES ABUSE OR MISSUSED OF ANY MEDICATION. PATIENT DENIES USE OF ANY ILLEGAL SUBSTANCE INCLUDING MARIJUANA OR COCAINE. CAFFEINE CAFFEINE USE?YES HOW OFTEN AND HOW MUCH? OCCASSIONALLY SEXUAL HX HAD SEX IN THE LAST 12 MONTHS (VAGINAL, ORAL, OR ANAL)?NO HAVE YOU EVER HAD AN STD?NO HIV / HEP-C SCREENING HIV TEST OFFERED TO PATIENT:YES DATE OFFERED:01/14/2017 TEST ACCEPTED:NO HEP-C TEST OFFERED TO PATIENT:YES DATE OFFERED:01/14/2017 REASON:PATIENT DECLINED TEST ACCEPTED:NO REASON:PATIENT DECLINED BROCHURE PROVIDED TO PATIENTYES CATHOLIC [id number] MANDAEN LANGUAGE LANGUAGES SPOKEN:AZERI LEARNING BARRIERS / SPECIAL NEEDS CHANGE FROM LAST VISIT?NO 01/17/20 BARRIERS TO LEARNING?NO HEARING IMPAIRED?NO VISION IMPAIRED?YES :CORRECTIVE LENSES COGNITIVELY IMPAIRED?NO READINESS TO LEARN?YES LEARNING PREFERENCES?NO LEARNING CAPABILITIES PRESENT?YES EMOTIONAL BARRIERS?NO SPECIAL DEVICES?NO SOCIAL SERVICES COORDINATOR NEEDED?NO DOMESTIC VIOLENCE NONE. 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 DIET: CURRENTLY ON WEIGHT REDUCTION PROGRAM,NO H/O ED. EXERCISE: 3-4 X A WEEK FOR 30-45 MIN. MARITAL STATUS: . OTHERS AT HOME: SPOUSE. PAIN CLINIC PFS, CLERGY, PUBLIC HEALTH REFERRALS HAS THE PATIENT BEEN EDUCATED REGARDING HIS/HER PLAN OF CARE?YES HAS THE PATIENT BEEN EDUCATED REGARDING PAIN, THE RISK FOR PAIN, THE IMPORTANCE OF EFFECTIVE PAIN MANAGEMENT, AND THE PAIN ASSESSMENT PROCESS?YES HOUSING: RENTS HOUSE. ADVANCE DIRECTIVE ADVANCE DIRECTIVE DISCUSSED WITH PATIENT:YES - KARL BO SHE AND ARE ESTRANGED FROM HIS 3 CHILDREN AND HER SON. NO EXPLANATION GIVEN. PT SINGS IN HER [employer] CHOIR. HOSPITALIZATION/MAJOR DIAGNOSTIC PROCEDURE RELATED TO SURGERY REVIEW OF SYSTEMS CONSTITUTIONAL: ANY RECENT FEVER NO . CHILLS NO . WEIGHT CHANGE OF UNKNOWN REASONS NO . GASTROENTEROLOGY: NEW UNEXPLAINABLE CHANGES IN BOWEL CONTROL NO . CONSTIPATION NO . GENITOURINARY: ANY NEW CHANGE IN BLADDER CONTROL? NO . NEUROLOGY: NEW ONSET DIZZINESS OR NEUROLOGICAL CHANGES NOT MENTIONED NO . NEW NUMBNESS OR PAIN PATTERNS NOT MENTIONED AND PERTINENT TO TODAY'S VISIT NO . CARDIOLOGY: NEW CHEST PRESSURE NO . NEW CHEST PAIN NO . RESPIRATORY: UNEXPLAINABLE COUGH NO . NEW SHORTNESS OF BREATH NO . VITAL SIGNS WT 163.8 LBS, HT 65 IN, BMI 27.25 INDEX, BP 137/67 MM HG, HR 97 /MIN, RR 18 /MIN, TEMP 98.6 F, OXYGEN SAT % 96%, SAFE IN ENV? (Y/N) YES, NA INITIALS AW 0941, REVIEWED BY: MFV/S VERIFIED Breonna CORBIN RN 01/17/20 10:06. EXAMINATION GENERAL EXAMINATION: GENERALNO ACUTE DISTRESS, WELL NOURISHED AND HYDRATED. PSYCHAPPROPRIATE MOOD AND AFFECT . LUNGS:CLEAR TO AUSCULTATION BILATERALLY, NO WHEEZES, RHONCHI, RALES. HEART:NO MURMURS, REGULAR RATE AND RHYTHM. BACK:DENIES TENDERNESS ALONG LUMBAR SPINE, SURROUNDING SKIN SHOWS NO ERYTHEMA, ECCHYMOSIS, INCREASED WARMTH, AND/OR SKIN ERUPTIONS NOTED. PATIENT DOES ENDORSE INCREASED PAIN WITH FACET LOADING . ASSESSMENTS SPONDYLOSIS OF LUMBOSACRAL REGION WITHOUT MYELOPATHY OR RADICULOPATHY - M47.817 (PRIMARY) TREATMENT SPONDYLOSIS OF LUMBOSACRAL REGION WITHOUT MYELOPATHY OR RADICULOPATHY NOTES: BILATERAL THERAPEUTIC LUMBAR FACET BLOCK L4-L5 L5-S1 WITH POST PROCEDURAL FOLLOW-UP. PATIENT HAS EXPRESSED UNDERSTANDING OF AND WAS IN AGREEMENT WITH TREATMENT PLAN. GIVEN TIME TO ASK QUESTIONS AND EXPRESS CONCERNS. EDUCATED PT REGARDING PRE-PROCEDURE INSTRUCTIONS, PT ACKNOWLEDGED UNDERSTANDING. DS. CLINICAL NOTES: BILATERAL THERAPEUTIC FACET BLOCK L4-L5 L5-S1. PROCEDURE CODES FA211 ESTABILISHED PATIENT [facility] CHARGE DISPOSITION & COMMUNICATION FOLLOW UP POSTPROCEDURE (REASON: LATERAL THERAPEUTIC FACET BLOCK L4-L5 L5-S1) ELECTRONICALLY SIGNED BY ANTONIO STEVENS ON 01/20/2020 AT 09:18 AM EST DISCLAIMER : THIS IS A VISIT SUMMARY EXTRACTED FROM THE [employer] CHART. IT IS NOT A COPY OF THE [employer] PROGRESS NOTE. BRIAN
== END ==
LOC: M PAIN 09:45
PROVIDERS: ATTEND Family Medicine
DX: M47.817 Spondylosis without myelopathy or radiculopathy, lumbosacral region (principal); G89.29 Other chronic pain; K21.9 Gastro-esophageal reflux disease without esophagitis; R73.01 Impaired fasting glucose; E55.9 Vitamin D deficiency, unspecified; I10 Essential (primary) hypertension; Z86.59 Personal history of other mental and behavioral disorders; Z87.891 Personal history of nicotine dependence; Z88.1 Allergy status to other antibiotic agents; Z88.8 Allergy status to other drugs, medicaments and biological substances; Z79.82 Long term (current) use of aspirin; Z79.899 Other long term (current) drug therapy

== ENCOUNTER → 2020-01-19 | Outpatient (CLI) | payer OTHER ==
[~2020-01-19] MED LIST changes: +E-Z-GAS II EFFERVESCENT PACKET (SODIUM BICARB./CITRIC ACID/SIMETHICONE) As Ordered ONE; +E-Z-HD 98% w/w 340GM SUSP BTL As Ordered ONE; +E-Z-PAQUE 96% w/w SUSP 176GM BTL As Ordered ONE
--- NOTE | 2020-01-19 17:51 | REP ---
INDICATION: GASTRO-ESOPHAGEAL REFLUX DISEASE . COMPARISON: None. TECHNIQUE: The procedure was performed under the direct supervision of Dr. Elias. The images were reviewed with Dr. Elias. Liquid barium and gas producing crystals were given in the erect position as well as liquid barium in the prone oblique position in order to perform a double contrast upper GI examination. . FINDINGS: The supervisor word processing film shows no organomegaly or pathological masses. The intestinal gas pattern is non-specific. There are multiple surgical clips noted over the left hip and pelvis. The oral and pharyngeal stages of deglutition are unremarkable. During esophageal transporter tertiary waves demonstrated. There is no soft tissue gas is stricture or mucosal ring. There is a fixed hiatal hernia. There is gastroesophageal reflux demonstrated to above the level of the alex. Within the stomach there are multiple sub-centimeter polyps identified. The stomach is otherwise unremarkable.. The duodenal pandey are normally outlined. The mucosal folds are smooth and regular. There is no duodenitis pancreatitis peptic ulcer disease or neoplasm. The visualized portion of the proximal small bowel appears normal in course and caliber. 1.4 minutes of fluoroscopy time was utilized for this procedure. IMPRESSION: 1. Tertiary waves. 2. There is a fixed hiatal hernia. There is gastroesophageal reflux demonstrated to above the level of the alex. 3. There are multiple sub-centimeter polyps within the stomach. . <Electronically signed by Beau Goldsmith > 01/19/20 1642 <Electronically signed by Shawn Elias > 01/19/20 [id number]
== END ==
LOC: M RAD 07:43
PROVIDERS: ATTEND Physician Assistant Medical
DX: K21.9 Gastro-esophageal reflux disease without esophagitis (principal); R07.9 Chest pain, unspecified; K44.9 Diaphragmatic hernia without obstruction or gangrene

== ENCOUNTER → 2020-01-20 | Outpatient (CLI) | payer OTHER ==
[~2020-01-20] MED LIST changes: -E-Z-GAS II EFFERVESCENT PACKET (SODIUM BICARB./CITRIC ACID/SIMETHICONE) As Ordered ONE; -E-Z-HD 98% w/w 340GM SUSP BTL As Ordered ONE; -E-Z-PAQUE 96% w/w SUSP 176GM BTL As Ordered ONE
== END ==
LOC: M LABSMTC 10:04
PROVIDERS: ATTEND Anesthesiology
DX: Z01.818 Encounter for other preprocedural examination (principal); Z20.828 Contact with and (suspected) exposure to other viral communicable diseases
CPT/HCPCS: C9803; U0003

== ENCOUNTER 2020-01-25 07:13 | Day surgery (SDC) | payer OTHER ==
[~2020-01-25] VITALS: Ht 167.6 cm; Wt 72.6 kg
[~2020-01-25 07:13] MED LIST changes: +NS 1,000 ML IV ONE
[2020-01-25] MEDS ORDERED: propofoL 500 MG/50 ML VIAL As Ordered ONE (07:18)
[2020-01-25] MEDS ORDERED: LIDOCAINE 2% 100MG/5ML SDV (FOR ANES.) As Ordered ONE (07:18)
--- NOTE | 2020-01-25 08:24 | ROOR ---
Patient Name: Zoe Gunn Procedure Date: 01/25/2020 8:05 AM Date of : 1950 Age: 69 Room: [facility] Gender: Female Note Status: Finalized Procedure: Upper GI endoscopy Indications: Heartburn, Abnormal UGI series Providers: Wagner ZAVALA MD Referring MD: Geovanny Castro MD Requesting Provider: Medicines: Monitored Anesthesia Care Complications: No immediate complications. Procedure: Pre-Anesthesia Assessment: - The heart rate, respiratory rate, oxygen saturations, blood pressure, adequacy of pulmonary ventilation, and response to care were monitored throughout the procedure. The Endoscope was introduced through the mouth, and advanced to the second part of duodenum. The upper GI endoscopy was accomplished without difficulty. The patient tolerated the procedure well. Findings: The examined esophagus was normal. The Z-line was regular and was found 33 cm from the incisors. A medium-sized hiatal hernia was present. Multiple 5 mm semi-sessile fundic gland polyps were found in the stomach. Biopsies were taken with a cold forceps for histology. The exam was otherwise without abnormality. Impression: - Normal esophagus. - Z-line regular, 33 cm from the incisors. - Medium to large-sized hiatal hernia. - Multiple fundic gland polyps. Biopsied. - The examination was otherwise normal. Recommendation: - Continue present medications. - Follow an antireflux regimen. - Telephone endoscopist for pathology results in 2 weeks. Wagner Zavala MD Wagner ZAVALA MD 01/25/2020 8:23:48 AM Electronically signed by Wagner ZAVALA MD Number of Addenda: 0 Note Initiated On: 01/25/2020 8:05 AM Estimated Blood Loss: Estimated blood loss: none.
--- NOTE | 2020-01-25 08:49 | ROOR ---
Patient Name: Zoe Gunn Procedure Date: 01/25/2020 8:08 AM Date of : 1950 Age: 69 Room: [facility] Gender: Female Note Status: Finalized Procedure: Colonoscopy Indications: Screening for colorectal malignant neoplasm Providers: Wagner ZAVALA MD Referring MD: Geovanny Castro MD Requesting Provider: Medicines: Monitored Anesthesia Care Complications: No immediate complications. Procedure: Pre-Anesthesia Assessment: - The heart rate, respiratory rate, oxygen saturations, blood pressure, adequacy of pulmonary ventilation, and response to care were monitored throughout the procedure. The Colonoscope was introduced through the anus and advanced to the terminal ileum, with identification of the appendiceal orifice and IC valve. The colonoscopy was performed with difficulty due to inadequate bowel prep. Successful completion of the procedure was aided by lavage. The patient tolerated the procedure well. The quality of the bowel preparation was poor. Findings: The perianal and digital rectal examinations were normal. The colon is grossly normal without large tumors or obstructing lesions. Unable to perform adequate detail examination. Small lesions may have been missed. The exam was otherwise normal throughout the examined colon. The terminal ileum appeared normal. Impression: - Preparation of the colon was poor. (barium and stool) - The colon is grossly normal without large tumors or obstructing lesions. Unable to perform adequate detail examination. Small lesions may have been missed. - The examined portion of the ileum was normal. - No specimens collected. Recommendation: - Repeat colonoscopy in 2 years because the bowel preparation was poor. - Consider repeat colonoscopy in 2 years--will require additional colon prep ("neurogenic" prep) and laxative/Lactulose 30 ml tid) for at least a week prior to next colonoscopy. Wagner Zavala MD Wagner ZAVALA MD 01/25/2020 8:48:34 AM Electronically signed by Wagner ZAVALA MD Number of Addenda: 0 Note Initiated On: 01/25/2020 8:08 AM Estimated Blood Loss: Estimated blood loss: none.
[2020-01-25 09:14] VITALS: BP 162/80
== END 2020-01-25 09:18 | disposition home or self-care (01) ==
LOC: M OPP 07:13
PROVIDERS: ATTEND Internal Medicine Gastroenterology
DX: Z12.11 Encounter for screening for malignant neoplasm of colon (principal); K44.9 Diaphragmatic hernia without obstruction or gangrene; K31.7 Polyp of stomach and duodenum; R12 Heartburn; R93.3 Abnormal findings on diagnostic imaging of other parts of digestive tract; D86.9 Sarcoidosis, unspecified; Z79.82 Long term (current) use of aspirin; Z79.899 Other long term (current) drug therapy; Z88.8 Allergy status to other drugs, medicaments and biological substances; Z85.820 Personal history of malignant melanoma of skin
CPT/HCPCS: 43239; 88305; G0121

== ENCOUNTER → 2020-02-12 | Outpatient (RCR) | payer OTHER ==
[~2020-02-12] MED LIST changes: -NS 1,000 ML IV ONE
== END | disposition home or self-care (01) ==
LOC: M PT 13:09
PROVIDERS: ATTEND Family Medicine
DX: M25.512 Pain in left shoulder (principal)

== ENCOUNTER → 2020-03-14 | Outpatient (RCR) | payer OTHER | LOC: M PT 02-19 08:00 | PROVIDERS: ATTEND Family Medicine | DX: M25.512 Pain in left shoulder (principal); M54.9 Dorsalgia, unspecified ==

== ENCOUNTER → 2020-04-05 | Outpatient (CLI) | payer OTHER | LOC: M LABSMTC 11:47 | PROVIDERS: ATTEND Anesthesiology | DX: Z01.812 Encounter for preprocedural laboratory examination (principal); Z20.822 Contact with and (suspected) exposure to COVID-19 ==

== ENCOUNTER 2020-04-08 12:53 | Outpatient (RCR) | payer OTHER | END 2020-04-14 | LOC: M PT 12:53 | PROVIDERS: ATTEND Family Medicine | DX: M25.512 Pain in left shoulder (principal); M54.9 Dorsalgia, unspecified ==

== ENCOUNTER → 2020-04-09 | Outpatient (CLI) | payer OTHER ==
[~2020-04-09] MED LIST changes: +BUPIVACAINE HCL 0.25% 30ML VIAL As Ordered ONE; +ISOVUE-M 300 61% 15ML VIAL As Ordered ONE; +LIDOCAINE 1% SDV 30ML VIAL As Ordered ONE; +NORCO, ANEXSIA 5/325MG TABLET (HYDROcodone/ACETAMINOPHEN) As Ordered ONE; +TRIAMCINOLONE ACETONIDE SUSP 40 MG/ML VIAL (J3301) As Ordered ONE; +diazePAM 2 MG TAB As Ordered ONE
--- NOTE | 2020-04-09 17:05 | REP ---
INDICATION: BILATERAL THERAPEUTIC LUMBAR FACET BLOCK. COMPARISON: None. TECHNIQUE: Four views. Eighteen seconds of fluoroscopy time is reported. FINDINGS: A sequence of 4 last image hold fluoroscopically obtained spot radiograph(s) of the lumbar spine document(s) needle position(s) and contrast injection associated with injection procedure. IMPRESSION: Procedural imaging. <Electronically signed by Max Penny > 04/09/20 [id number]
--- NOTE | 2020-04-12 03:17 | ECWPNPC ---
PATIENT NAME: INDU OB : 1950 GENDER: FEMALE VISIT DATE: 04/09/2020 DISCHARGE DATE: 04/09/20 1419 VISIT LOCKED DATE TIME: PHYSICIAN: ERICA REYNA MD PHYSICIAN PAGER NO: ACTIVE RESOURCE: ERICA REYNA MD REASON FOR APPOINTMENT 1. BILATERAL THERAPEUTIC LUMBAR FACET BLOCK L4-L5, L5-S1 HISTORY OF PRESENT ILLNESS GENERAL: -. FALL RISK SCREENING: SCREENING :NO FALLS REPORTED IN THE LAST YEAR PAIN SCREENING: PATIENT HAS A COMPLAINT OF ACUTE OR CHRONIC PAIN :YES LOCATION OF PAIN:LEFT SHOULDER, LOW BACK, OTHER: LEFT GROIN INTENSITY OF PAIN (SCALE OF 1 TO 10):9 WHAT DOES YOUR PAIN FEEL LIKE:SORE, TENDER DURATION:CONSTANT PAIN IS INCREASED BY:PROLONGED STANDING PAIN IS DECREASED BY:USE OF PAIN MEDICATIONS REST NURSING NOTE: -. PAIN CENTER INTAKE QUESTIONS: DO YOU HAVE A HISTORY OF MRSA? :NO DO YOU TAKE A BLOOD THINNERS? :NO DO YOU HAVE ANY BLEEDING DISORDERS? :NO ANY NEW NUMBNESS OR WEAKNESS IN YOUR LEGS OR ARMS? :NO ANY PACEMAKER,DEFIBRILLATOR, OR DORSAL COLUMN STIMULATOR? :NO DO YOU HAVE ANY RASHES OR OPEN SORES? :NO ARE YOU ALLERGIC TO IV DYE? :NO ARE YOU DIABETIC? :NO ANY NEW PROBLEMS WITH YOUR MEDICATIONS? :NO HAVE YOU RECEIVED A VACCINE IN THE PAST 30 DAYS? :NO DO YOU PLAN TO RECEIVE A VACCINE IN THE NEXT 21 DAYS? :NO DO YOU TAKE ANY IMMUNOSUPPRESSIVE MEDICATIONS? :NO ANY HISTORY OF SEIZURES? :NO ANY HISTORY OF CARDIAC ISSUES OR EVENTS? :NO DO YOU HAVE SLEEP APNEA? :NO ANY RECENT HEAD INJURY? :NO DO YOU HAVE ANY NEW INFECTIONS? :NO IS THERE A CHANCE YOU COULD BE ? :NO ARE YOU BREAST FEEDING? :NO WHEN DID YOU LAST EAT? : -1800 04/08/20 WHEN DID YOU LAST DRINK? : - 0900 04/09/20 WHAT DID YOU LAST DRINK? : -WATER NAME OF PERSON DRIVING YOU HOME? : - AUNT (CAROLYNN CHOI) DO YOU HAVE ANY OTHER QUESTIONS OR CONCERNS? : - NO CURRENT MEDICATIONS TAKING MULTIVITAMINS OTC TABLET 1 TABLET ORALLY ONCE A DAY TAKING ASPIRIN 81 MG TABLET DISPERSIBLE 1 TABLET ORALLY ONCE A DAY TAKING CALCIUM 600+D3 600-800 MG-UNIT TABLET 1 TABLET ORALLY THREE TIMES A DAY TAKING IBUPROFEN 600 MG TABLET 1 TAB(S) ORALLY NEEDED, NOTES: 04/08/20 2200 TAKING MIRALAX - PACKET 1 PACKET MIXED WITH 8 OUNCES OF FLUID ORALLY ONCE A DAY TAKING ACYCLOVIR 400 MG TABLET TAKE 1 TABLET EVERY DAY , NOTES: 04/08/20 0900 TAKING DYAZIDE 37.5-25 MG CAPSULE TAKE 1 CAPSULE EVERY MORNING , NOTES: 04/09/20 0700 TAKING OMEPRAZOLE 40 MG CAPSULE DELAYED RELEASE TAKE 1 CAPSULE TWICE DAILY TAKING ZOCOR 20 MG TABLET TAKE 1 TABLET ONE TIME DAILY IN THE EVENING TAKING VENLAFAXINE HCL ER 150 MG CAPSULE EXTENDED RELEASE 24 HOUR TAKE 1 CAPSULE EVERY DAY , NOTES: 04/09/20 0700 NOT-TAKING RANITIDINE HCL 150 MG TABLET 1 TABLET ORALLY TWICE DAILY NOT-TAKING DICLOFENAC SODIUM 50 MG TABLET DELAYED RELEASE 1 TABLET ORALLY TWICE A DAY, NOTES: NOT IN PAST YEAR NOT-TAKING CYCLOBENZAPRINE HCL 10 MG TABLET 1 TABLET AT BEDTIME NEEDED ORALLY ONCE A DAY, NOTES: NOT IN PAST MONTH MEDICATION LIST REVIEWED AND RECONCILED WITH THE PATIENT PAST MEDICAL HISTORY HX 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 HX V10.83 PERSONAL HX OF MALIGNANT MELANOMA, CHEMOTHERAPY, 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 SARCOIDOSIS GASTROESOPHAGEAL REFLUX ALLERGIC RHINITIS OSTEOPENIA IMPAIRED FASTING GLUCOSE HYPERCHOLESTEROLEMIA VITAMIN D DEFICIENCY DEPRESSION IRRITABLE BOWEL SYNDROME HYPERTENSION TYRER CUZICK SCORE 9.09% ARTHRITIS LEFT SHOULDER, LEFT HIP ALLERGIES RELAFEN: ALLERGY CEFTIN: DIARRHEA - SIDE EFFECTS LISINOPRIL: COUGH - SIDE EFFECTS - ONSET DATE 08/09/2019 SURGICAL HISTORY BILATERAL TUBAL LIGATION REMOVAL MM L THIGH 0.68 MM IN DEPTH 04/1999 RADICAL GROIN RESECTION 2001 TVH AND A&P REPAIR WITH OVARIES PRESERVED 12/17 COLONOSCOPY 2008 PLANTAR FASCITIS 2009 UPPER ENDOSCOPY 2009 EGD/ INCOMPLETE COLONOSCOPY DUE TO POOR PREP 2014 EGD (HIATAL HERNIA) AND COLONOSCOPY (POOR PREP); WILLL NEED ANOTHER COLONOSCOPY IN 2 YEARS WITH BETTER PREP 10/2017 HOSPITALIZATION/MAJOR DIAGNOSTIC PROCEDURE RELATED TO SURGERY VITAL SIGNS WT 165.0 LBS, HT 65 IN, BMI 27.45 INDEX, BP 164/79 MM HG, HR 87 /MIN, RR 18 /MIN, TEMP 98.0 F, OXYGEN SAT % 96%, SAFE IN ENV? (Y/N) [place], [place] [address]/ 1129 REVIEWED. Bautista PATTERSON RN. EXAMINATION GENERAL EXAMINATION: THE PATIENT IS ALERT, ORIENTED TIMES THREE AND COOPERATIVE. LUNGS ARE CLEAR TO AUSCULTATION. HEART SHOWS REGULAR RHYTHM, NO MURMURS AND NO GALLOPS. ASSESSMENTS SPONDYLOSIS WITHOUT MYELOPATHY OR RADICULOPATHY, LUMBAR REGION - M47.816 (PRIMARY) SPONDYLOSIS WITHOUT MYELOPATHY OR RADICULOPATHY, LUMBOSACRAL REGION - M47.817 TREATMENT SPONDYLOSIS WITHOUT MYELOPATHY OR RADICULOPATHY, LUMBAR REGION [facility] FACET BLOCK (PAIN)[id number] MEDICATION: NORCO TABLET 5MG/325MG ORALLY (HYDROCODONE/ACETAMINOPHEN)PARMJITAVERYDESMOND 04/09/2020 11:44:53 AM - GIVE 2 TABS ROHAN PATTERSON RN 04/09/2020 11:53:52 AM > VERIFIED. EMERALDELLEN 04/09/2020 12:11:10 PM > VERIFIED 2ND SET OF TWO TABS. FIRST 2 TABS DROPPED ON FLOOR. DAYTON ALONZO 04/09/2020 12:11:46 PM > ADMINISTERED MEDICATION: VALIUM TAB 2MG ORALLY (DIAZEPAM)ROHAN PATTERSON RN 04/09/2020 11:53:29 AM > VERIFIED. DAYTON ALONZO 04/09/2020 12:12:28 PM > ADMINISTERE SALINE ROHAN ARMENDARIZ RN 04/09/2020 12:15:45 PM > #22 IV INSERTED LEFT AC. FLUSHED EASILY WITH NS. NO PAIN REPORTED. NO SWELLING NOTED. COMPLETION OF PROCEDURAL VISIT WHEN MEETS CRITERIADAYTON ALONZO 04/09/2020 1:12:02 PM > CRITERIA MET PROCEDURES PAIN NURSING RECORD PROCEDURE IN ROOM 1225, PHYSICIAN IN ROOM 1238, START 1241, FINISH 1249, PHYSICIAN OUT OF ROOM 1250, OUT OF ROOM 1257, ECG NORMAL SINUS, PATIENT SHIELDED YES, SAFETY STRAP YES, PREP CHLOROPREP BY Te PATTERSON RN, DRESSING TEGADERM BY DR REYNA LOC: 1. ALERT, ORIENTED, DAYTON ALONZO 04/09/2020 12:34:07 PM > RESP: 1. REGULAR, NO DYSPNEA, DAYTON ALONZO 04/09/2020 12:34:11 PM > COLOR: 1. PINK, DAYTON ALONZO 04/09/2020 12:34:14 PM > SKIN: DAYTON ALONZO 04/09/2020 12:34:17 PM > , 1. WARM, DRY POSITION: DAYTON ALONZO 04/09/2020 12:34:20 PM > , 1. PRONE VITALS: DAYTON ALONZO 04/09/2020 12:34:24 PM > 158/75-83-18-98% , DAYTON ALONZO 04/09/2020 12:48:54 PM > 155/74-86-18-95% 1306 156/32-72-82-100% NOTES Estevan PARISH RN COMPLETION OF PROCEDURE APPOINTMENT: POST PAIN 3 BILATERAL LOW BACK, DRESSING SITE DRY AND INTACT BILATERAL LOW BACK, IV DISCONTINUED, SITE CLEAR, CATHETER INTACT, GAIT STEADY, TEACHING COMPLETED, PATIENT ACKNOWLEDGES UNDERSTANDING YES, PROCEDURE APPOINTMENT COMPLETED AT 1310 BY: Estevan PARISH RN PN LUMBAR FACET BLOCK THERAPEUTIC PRE PROCEDURE DIAGNOSIS LUMBAR SPONDYLOSIS, LUMBOSACRAL SPONDYLOSIS POST PROCEDURE DIAGNOSIS LUMBAR SPONDYLOSIS, LUMBOSACRAL SPONDYLOSIS PROCEDURE BILATERAL L4-L5 AND BILATERAL L5-S1 LUMBAR FACET THERAPEUTIC BLOCK SURGEON DR. ERICA REYNA LAN ADMINISTRATOR NONE ANESTHESIA LOCAL PRE PROCEDURE NOTE THE PATIENT HAS A HISTORY OF CHRONIC LOW BACK PAIN. I EVALUATED THE PATIENT AND REVIEWED THE CHART. I WENT OVER THE RISKS, ALTERNATIVES, AND BENEFITS ASSOCIATED WITH THIS PROCEDURE. THE PATIENT WOULD LIKE TO PROCEED AND GIVES CONSENT TO PERFORM THE PROCEDURE. THE PATIENT DENIES UNEXPLAINABLE WEIGHT LOSS, FEVER, CHILLS, OR NEW CHANGES IN URINARY OR BOWEL CONTROL. THE PATIENT IS COVID-19 NEGATIVE DESCRIPTION OF PROCEDURE THE PATIENT WAS BROUGHT TO THE PROCEDURE ROOM AND PLACED IN THE PRONE POSITION. THE LUMBOSACRAL AREA WAS CLEANED WITH CHLORAPREP SOLUTION AND DRAPED ASEPTICALLY. THE PROCEDURE WAS DONE UNDER STERILE CONDITIONS. A TIMEOUT WAS PERFORMED WHERE THE CONSENTED SITE WAS VERIFIED WITH EVERYONE IN THE ROOM. UNDER FLUOROSCOPIC GUIDANCE, THE TARGET POINT WAS RIGHT AND LEFT L4-L5 AND RIGHT AND LEFT L5-S1 FACET JOINTS. TARGET POINT WAS SELECTED AFTER LATERAL ROTATION AND TILT OF THE MAGNIFIER OF THE C-ARM. I CONFIRMED AGAIN THE SITE OF THE TARGET. LIDOCAINE 0.5% WAS USED TO NUMB THE SKIN AND THE SUBCUTANEOUS TISSUE BELOW IT. SPINAL NEEDLES, 22-GAUGE, WERE ADVANCED UNDER FLUOROSCOPIC GUIDANCE AND FOLLOWING PATIENT FEEDBACK UNTIL THE TARGETS WERE TOUCHED. THE POSITION OF THE NEEDLES WAS VERIFIED WITH AP AND LATERAL VIEWS. AFTER PROPER POSITION OF THE NEEDLES WAS ACHIEVED, ISOVUE-M DYE 30%, 0.1 ML, WAS INJECTED SHOWING ADEQUATE SPREAD OF THE DYE. KENALOG 10 MG WAS INJECTED AT EACH SITE. THEN, A SOLUTION OF 1.0 ML OF BUPIVACAINE 0.125% OF WAS USED TO FLUSH EACH SITE. THE MEDICATION WAS VERIFIED WITH THE NURSE. THERE WAS NO EVIDENCE OF BLOOD, PARESTHESIA OR CEREBROSPINAL FLUID DURING THE PROCEDURE. THE PATIENT WAS SENT TO THE RECOVERY ROOM. THE PATIENT WAS MOVING THE EXTREMITIES AND DOING WELL. THERE WERE NO COMPLICATIONS DURING THE PROCEDURE. ESTIMATED BLOOD LOSS WAS LESS THAN 5 ML. FLUOROSCOPY TIME WAS 10 SECONDS POST PROCEDURE NOTE THE PATIENT WILL BE SEEN IN A FOLLOW UP IN THE NEXT FEW WEEKS. I AM LOOKING FOR LONG LASTING RELIEF FOR THE PATIENT WITH THIS INTERVENTION. INSTRUCTIONS WERE GIVEN, QUESTIONS WERE ANSWERED, AND THE PATIENT EXPRESSED UNDERSTANDING AND AGREES WITH THE PLAN. I, DESMOND PARNELL, DOCUMENTED THE ABOVE INFORMATION ACTING A SCRIBE FOR DR. REYNA. I HAVE REVIEWED THE ABOVE DOCUMENT, WRITTEN BY DESMOND PARNELL, OIL EXPELLER OPERATOR, AND I VERIFY THAT IT IS ACCURATE PROCEDURE CODES 76004 INJ PARAVERT F JNT L/S 1 LEV, MODIFIERS: 50 [id number] INJ PARAVERT F JNT L/S 2 LEV, MODIFIERS: 50 DISPOSITION & COMMUNICATION FOLLOW UP FOLLOW UP WITH OPTICAL INSTRUMENT SPECIALIST (REASON: POST BILATERAL THERAPEUTIC LUMBAR FACET BLOCK L4-L5, L5-S1) ELECTRONICALLY SIGNED BY ERICA REYNA MD, MD ON 04/11/2020 AT 03:15 PM EST DISCLAIMER : THIS IS A VISIT SUMMARY EXTRACTED FROM THE [employer] CHART. IT IS NOT A COPY OF THE [employer] PROGRESS NOTE. MTDD
== END ==
LOC: M PAIN 11:00
PROVIDERS: ATTEND Anesthesiology
DX: M47.816 Spondylosis without myelopathy or radiculopathy, lumbar region (principal); M47.817 Spondylosis without myelopathy or radiculopathy, lumbosacral region; K21.9 Gastro-esophageal reflux disease without esophagitis; E78.00 Pure hypercholesterolemia, unspecified; F32.9 Major depressive disorder, single episode, unspecified; I10 Essential (primary) hypertension; Z85.820 Personal history of malignant melanoma of skin; M19.012 Primary osteoarthritis, left shoulder; M17.12 Unilateral primary osteoarthritis, left knee; Z79.82 Long term (current) use of aspirin; Z79.899 Other long term (current) drug therapy; Z88.1 Allergy status to other antibiotic agents; Z88.8 Allergy status to other drugs, medicaments and biological substances
CPT/HCPCS: 64493; 64494; J3301; Q9967

== ENCOUNTER 2020-04-17 12:52 | Outpatient (RCR) | payer OTHER ==
[~2020-04-17 12:52] MED LIST changes: -BUPIVACAINE HCL 0.25% 30ML VIAL As Ordered ONE; -ISOVUE-M 300 61% 15ML VIAL As Ordered ONE; -LIDOCAINE 1% SDV 30ML VIAL As Ordered ONE; -NORCO, ANEXSIA 5/325MG TABLET (HYDROcodone/ACETAMINOPHEN) As Ordered ONE; -TRIAMCINOLONE ACETONIDE SUSP 40 MG/ML VIAL (J3301) As Ordered ONE; -diazePAM 2 MG TAB As Ordered ONE
== END 2020-05-12 ==
LOC: M PT 12:52
PROVIDERS: ATTEND Family Medicine
DX: M25.512 Pain in left shoulder (principal); M54.9 Dorsalgia, unspecified

== ENCOUNTER → 2020-07-05 | Outpatient (REF) | payer OTHER ==
[~2020-07-05] MED LIST changes: +ACYC1TAB PO; -ACYC400T PO
[2020-07-05 13:48] LABS: BASO # 0.1 10^3/uL (0.0-0.2); BASO % 0.8 % (0.0-1.0); EOS # 0.2 10^3/uL (0.0-0.5); EOS % 2.4 % (0.0-3.0); HEMATOCRIT 41.2 % (36.0-47.0); HEMOGLOBIN 13.4 g/dl (12.0-15.5); LYMPH # 2.2 10^3/uL (1.5-5.0); LYMPH % 25.7 % (24.0-44.0); MEAN CORPUSCULAR HEMOGLOBIN 30.4 pg (27.0-33.0); MEAN CORPUSCULAR HGB CONC 32.5 g/dl (32.0-36.5); MEAN CORPUSCULAR VOLUME 93.4 fl (80.0-96.0); MONO # 0.8 10^3/uL (0.0-0.8); NEUTROPHILS # 5.2 10^3/uL (1.5-8.5); NEUTROPHILS % 61.6 % (36.0-66.0); PLATELET COUNT, AUTOMATED 251 10^3/uL (150-450); RED BLOOD COUNT 4.41 10^6/uL (4.00-5.40); WHITE BLOOD COUNT 8.5 10^3/uL (4.0-10.0)
[2020-07-05 14:22] LABS: ALBUMIN 3.8 GM/DL (3.2-5.2); ALT/SGPT 49 U/L (12-78); BILIRUBIN,TOTAL 0.3 MG/DL (0.2-1.0); BLOOD UREA NITROGEN 21 MG/DL (7-18); CALCIUM LEVEL 9.3 MG/DL (8.8-10.2); CARBON DIOXIDE LEVEL 34 MEQ/L (21-32); CHLORIDE LEVEL 104 MEQ/L (98-107); CK-MB VALUE MASS 3.8 NG/ML (<3.6); CPK CREATINE PHOSPHOKINASE 127 U/L (26-192); CREATININE FOR GFR 0.65 MG/DL (0.55-1.30); FREE T4 0.84 NG/DL (0.76-1.46); GLOMERULAR FILTRATION RATE > 60.0 (>39); GLUCOSE, FASTING 95 MG/DL (70-100); MB/CK RELATIVE INDEX 2.99 (< OR =4); NT-PRO BNP 58 PG/ML (<125); SODIUM LEVEL 141 MEQ/L (136-145); THYROID STIMULATING HORMONE 0.749 uIU/ML (0.358-3.740); TOTAL PROTEIN 7.1 GM/DL (6.4-8.2); TROPONIN I < 0.02 NG/ML (< 0.10)
== END ==
LOC: M SFHCPLAZ 12:03
PROVIDERS: ATTEND Physician Assistant
DX: R53.83 Other fatigue (principal); R00.2 Palpitations

== ENCOUNTER → 2020-08-05 | Outpatient (REF) | payer OTHER | LOC: M SFHCLERA 11:14 | PROVIDERS: ATTEND Nurse Practitioner Family | DX: L02.419 Cutaneous abscess of limb, unspecified (principal) | CPT/HCPCS: 87070; 87077; 87186; G0463 ==

== ENCOUNTER → 2020-10-12 | Outpatient (CLI) | payer OTHER ==
[~2020-10-12] MED LIST changes: +OMEP40CA4 PO; -OMEP40CA97 PO
--- NOTE | 2020-10-14 11:32 | REP ---
INDICATION: IMPINGEMENT SYNDROME. . I COMPARISON: None TECHNIQUE: Coronal oblique T1 and fat suppressed T2. Sagittal oblique fat suppressed T2. Axial [id number] and T2 FLASH. FINDINGS: There is moderate hypertrophic degenerative change seen involving the acromioclavicular joint with T2 hyper signal seen within the joint. The acromion process is type 1. There is patchy and linear T2 hyper signal seen within the supraspinatus tendon. There is evidence of supraspinatus muscle atrophy without neto musculotendinous retraction. There is coracohumeral and coracoacromial ligamentous thickening. Patchy T2 hyper signal is seen in the subscapularis and infraspinatus tendons. The biceps tendon resides within the bicipital groove. There is evidence of labral truncation along with linear T2 hyper signal seen in the superior labrum particularly anteriorly. There is no glenohumeral joint effusion, however, there is fluid in the subcoracoid recess. There is humeral head and glenoid chondral thinning. There is multifocal T2 hyper signal seen in the humeral head. IMPRESSION: 1. Rather advanced supraspinatus tendinitis/tendinosis. I cannot rule out the possibility of a partial full-thickness tear. 2. Subscapularis and infraspinatus tendinitis/tendinosis. 3. Labral degeneration and possible superior anterior tear. 4. Ligamentous thickening as described above consistent with impingement syndrome. 5. AC joint DJD with edema. 6. Humeral head and glenoid chondromalacia. 7. Other findings as described above. <Electronically signed by Beau Boyd > 10/14/20 [id number]
== END ==
LOC: M RAD 13:50
PROVIDERS: ATTEND Orthopaedic Surgery Sports Medicine
DX: M75.42 Impingement syndrome of left shoulder (principal)

== ENCOUNTER → 2020-10-29 | Outpatient (CLI) | payer OTHER ==
[2020-10-29 13:04] LABS: BASO % 0.4 % (0.0-1.0); EOS # 0.1 10^3/uL (0.0-0.5); EOS % 0.9 % (0.0-3.0); HEMATOCRIT 43.8 % (36.0-47.0); HEMOGLOBIN 14.5 g/dl (12.0-15.5); LYMPH # 1.7 10^3/uL (1.5-5.0); LYMPH % 15.3 % (24.0-44.0); MEAN CORPUSCULAR HEMOGLOBIN 30.6 pg (27.0-33.0); MEAN CORPUSCULAR HGB CONC 33.1 g/dl (32.0-36.5); MEAN CORPUSCULAR VOLUME 92.4 fl (80.0-96.0); MONO # 0.8 10^3/uL (0.0-0.8); MONO % 7.3 % (2.0-8.0); NEUTROPHILS # 8.4 10^3/uL (1.5-8.5); NEUTROPHILS % 75.5 % (36.0-66.0); PLATELET COUNT, AUTOMATED 281 10^3/uL (150-450); RED BLOOD COUNT 4.74 10^6/uL (4.00-5.40); WHITE BLOOD COUNT 11.1 10^3/uL (4.0-10.0)
[2020-10-29 13:25] LABS: ALT/SGPT 31 U/L (12-78); BILIRUBIN,TOTAL 0.5 MG/DL (0.2-1.0); BLOOD UREA NITROGEN 16 MG/DL (7-18); CALCIUM LEVEL 9.4 MG/DL (8.8-10.2); CARBON DIOXIDE LEVEL 34 MEQ/L (21-32); CHLORIDE LEVEL 104 MEQ/L (98-107); CHOLESTEROL LEVEL 204 MG/DL (<200); CHOLESTEROL RISK RATIO 3.238 (<5); CREATININE FOR GFR 0.58 MG/DL (0.55-1.30); GLOMERULAR FILTRATION RATE > 60.0 (>39); GLUCOSE, FASTING 91 MG/DL (70-100); HDL CHOLESTEROL 63 MG/DL (>40); LDL CHOLESTEROL 106 MG/DL (<100); NON-HDL-C 141 MG/DL; POTASSIUM SERUM 3.9 MEQ/L (3.5-5.1); SODIUM LEVEL 142 MEQ/L (136-145); THYROID STIMULATING HORMONE 0.614 uIU/ML (0.358-3.740); TOTAL 25(OH) VITAMIN D 67.6 NG/ML (30.0-100.0); TOTAL PROTEIN 7.2 GM/DL (6.4-8.2); TRIGLYCERIDES LEVEL 173 MG/DL (<150)
[2020-10-29 14:04] LABS: HEPATITIS C VIRUS ABY INDEX 0.1 INDEX (<0.8)
== END ==
LOC: M PLALAB 10:29
PROVIDERS: ATTEND Internal Medicine
DX: Z11.59 Encounter for screening for other viral diseases (principal); E07.9 Disorder of thyroid, unspecified; E78.00 Pure hypercholesterolemia, unspecified

== ENCOUNTER → 2020-11-06 | Outpatient (CLI) | payer OTHER ==
--- NOTE | 2020-11-06 16:06 | REPMRS ---
Patient History The patient states she had a clinical breast exam in October 2020. Patient is postmenopausal and has history of other cancer at age 49. Family history of breast cancer at age 50 or over in mother, breast cancer at age 50 or over in maternal aunt, prostate cancer in brother. Benign lumpectomy of the right breast. Covid vaccine 05/2020 left arm. 05/2020 left arm. Patient states no breast complaints today. Patient has signed MRS History Sheet. Digital Woman Screen Mammo: November 06, 2020 - Exam #: [id number] Bilateral CC and MLO view(s) were taken. Technologist: RT Brent Prior study comparison: July 19, 2019, bilateral digital woman screen mammo performed at [facility]. July 15, 2018, bilateral digital woman screen mammo performed at [facility]. July 14, 2017, digital woman screen mammo performed at [facility]. FINDINGS: There are scattered fibroglandular densities. The Volpara volumetric breast density category is:B. There has been no change in the appearance of the mammogram from the prior studies. There is a mild amount of scattered fibroglandular density which is fairly symmetric. There is no interval development of dominant mass, architectural distortion, or grouped microcalcification suggestive of malignancy. 3-D tomosynthesis shows no additional findings. Assessment: BI-RADS/ACR category 2 mammogram. Benign Findings. Recommendation Routine screening mammogram of both breasts in 1 year. This patient's [facility] Lifetime Breast Cancer RIsk is estimated at 8.5 %. This mammogram was interpreted with the aid of an FDA-approved computer-aided dectection system. Electronically Signed By: Max Penny MD 11/06/20 [id number]
== END ==
LOC: M WHC 14:19
PROVIDERS: ATTEND Nurse Practitioner Women's Health
DX: Z01.419 Encounter for gynecological examination (general) (routine) without abnormal findings (principal); Z12.31 Encounter for screening mammogram for malignant neoplasm of breast; Z78.0 Asymptomatic menopausal state; Z85.89 Personal history of malignant neoplasm of other organs and systems; Z80.3 Family history of malignant neoplasm of breast; Z86.018 Personal history of other benign neoplasm
CPT/HCPCS: 77063; 77067; G0101

== ENCOUNTER → 2020-11-15 | Outpatient (CLI) | payer OTHER ==
--- NOTE | 2020-11-15 16:09 | REP ---
INDICATION: LT HIP PAIN. COMPARISON: None. TECHNIQUE: AP view pelvis, AP and frogleg left hip. FINDINGS: There is no evidence of acute fracture, dislocation or intrinsic bone disease. I do not see significant arthritic changes at either hip joint. Multiple metallic clips are seen overlying the lower left pelvis and extending into the left groin region. IMPRESSION: No significant osseous abnormalities. Multiple metallic clips in the left pelvic and groin soft tissues. <Electronically signed by Shawn Elias > 11/15/20 [id number]
== END ==
LOC: M SOG 14:08
PROVIDERS: ATTEND Orthopaedic Surgery Adult Reconstructive Orthopaedic Surgery
DX: M25.552 Pain in left hip (principal)

== ENCOUNTER → 2021-04-16 | Outpatient (CLI) | payer OTHER ==
[~2021-04-16] MED LIST changes: +POTA10TA17 PO
== END ==
LOC: M SOG 13:16
PROVIDERS: ATTEND Orthopaedic Surgery Adult Reconstructive Orthopaedic Surgery
DX: M25.561 Pain in right knee (principal); M25.562 Pain in left knee; M17.0 Bilateral primary osteoarthritis of knee

== ENCOUNTER → 2021-05-20 | Outpatient (REF) | payer OTHER | LOC: M SFHCPLAZ 10:04 | PROVIDERS: ATTEND Physician Assistant | DX: L02.411 Cutaneous abscess of right axilla (principal) ==

== ENCOUNTER → 2021-06-27 | Outpatient (REF) | payer OTHER | LOC: M SFHCPLAZ 16:40 | PROVIDERS: ATTEND Physician Assistant | DX: R05.9 Cough, unspecified (principal) ==

== ENCOUNTER → 2021-12-01 | Outpatient (CLI) | payer OTHER ==
[~2021-12-01] MED LIST changes: +POTA-150 PO; -POTA10TA17 PO
[2021-12-01 13:58] LABS: BASO # 0.1 10^3/uL (0.0-0.2); BASO % 0.6 % (0.0-1.0); EOS # 0.3 10^3/uL (0.0-0.5); EOS % 3.1 % (0.0-3.0); HEMATOCRIT 43.2 % (36.0-47.0); LYMPH # 2.3 10^3/uL (1.5-5.0); LYMPH % 25.8 % (24.0-44.0); MEAN CORPUSCULAR HEMOGLOBIN 30.5 pg (27.0-33.0); MEAN CORPUSCULAR HGB CONC 32.4 g/dl (32.0-36.5); MEAN CORPUSCULAR VOLUME 94.1 fl (80.0-96.0); MONO # 0.7 10^3/uL (0.0-0.8); MONO % 8.2 % (2.0-8.0); NEUTROPHILS # 5.4 10^3/uL (1.5-8.5); PLATELET COUNT, AUTOMATED 268 10^3/uL (150-450); RED BLOOD COUNT 4.59 10^6/uL (4.00-5.40); WHITE BLOOD COUNT 8.8 10^3/uL (4.0-10.0)
[2021-12-01 14:44] LABS: HEMOGLOBIN A1c 5.7 %
[2021-12-01 14:57] LABS: ALBUMIN 3.8 GM/DL (3.2-5.2); ALT/SGPT 23 U/L (12-78); BILIRUBIN,TOTAL 0.5 MG/DL (0.2-1.0); BLOOD UREA NITROGEN 14 MG/DL (7-18); CALCIUM LEVEL 9.7 MG/DL (8.8-10.2); CARBON DIOXIDE LEVEL 33 MEQ/L (21-32); CHLORIDE LEVEL 104 MEQ/L (98-107); CHOLESTEROL LEVEL 203 MG/DL (<200); CHOLESTEROL RISK RATIO 3.274 (<5); CREATININE FOR GFR 0.73 MG/DL (0.55-1.30); GLOMERULAR FILTRATION RATE > 60.0 (>39); GLUCOSE, FASTING 97 MG/DL (70-100); HDL CHOLESTEROL 62 MG/DL (>40); LDL CHOLESTEROL 110 MG/DL (<100); NON-HDL-C 141 MG/DL; POTASSIUM SERUM 4.1 MEQ/L (3.5-5.1); SODIUM LEVEL 142 MEQ/L (136-145); TRIGLYCERIDES LEVEL 156 MG/DL (<150)
== END ==
LOC: M PLAIMG 10:47
PROVIDERS: ATTEND Nurse Practitioner Adult Health
DX: M85.48 Solitary bone cyst, other site (principal); E78.00 Pure hypercholesterolemia, unspecified

== ENCOUNTER → 2021-12-19 | Outpatient (CLI) | payer OTHER | LOC: M WHC 09:23 | PROVIDERS: ATTEND Nurse Practitioner Family | DX: Z12.31 Encounter for screening mammogram for malignant neoplasm of breast (principal) ==

== ENCOUNTER → 2021-12-29 | Outpatient (CLI) | payer OTHER | LOC: M LABSMTC 10:32 | PROVIDERS: ATTEND Anesthesiology | DX: Z11.52 Encounter for screening for COVID-19 (principal) ==

== ENCOUNTER → 2022-01-01 | Outpatient (CLI) | payer OTHER ==
[~2022-01-01] MED LIST changes: +BUPIVACAINE HCL 0.25% 10ML VIAL As Ordered ONE; +BUPIVACAINE HCL 0.25% 30ML VIAL As Ordered ONE; +NORCO, ANEXSIA 5/325MG TABLET (HYDROcodone/ACETAMINOPHEN) As Ordered ONE; +TRIAMCINOLONE ACETONIDE SUSP 40 MG/ML VIAL (J3301) As Ordered ONE; +diazePAM 2 MG TAB As Ordered ONE
== END ==
LOC: M PAIN 15:30
PROVIDERS: ATTEND Anesthesiology
DX: M79.18 Myalgia, other site (principal); G89.29 Other chronic pain; K21.9 Gastro-esophageal reflux disease without esophagitis; E55.9 Vitamin D deficiency, unspecified; I10 Essential (primary) hypertension; Z86.14 Personal history of Methicillin resistant Staphylococcus aureus infection; Z86.59 Personal history of other mental and behavioral disorders; Z87.891 Personal history of nicotine dependence; Z88.1 Allergy status to other antibiotic agents; Z88.8 Allergy status to other drugs, medicaments and biological substances; Z79.82 Long term (current) use of aspirin; Z79.899 Other long term (current) drug therapy
CPT/HCPCS: 20552; J3301

== ENCOUNTER → 2022-01-22 | Outpatient (CLI) | payer OTHER ==
[~2022-01-22] MED LIST changes: -BUPIVACAINE HCL 0.25% 10ML VIAL As Ordered ONE; -BUPIVACAINE HCL 0.25% 30ML VIAL As Ordered ONE; -NORCO, ANEXSIA 5/325MG TABLET (HYDROcodone/ACETAMINOPHEN) As Ordered ONE; -TRIAMCINOLONE ACETONIDE SUSP 40 MG/ML VIAL (J3301) As Ordered ONE; -diazePAM 2 MG TAB As Ordered ONE
== END ==
LOC: M PAIN 09:00
PROVIDERS: ATTEND Nurse Practitioner Family
DX: M79.10 Myalgia, unspecified site (principal); G89.29 Other chronic pain; K21.9 Gastro-esophageal reflux disease without esophagitis; E55.9 Vitamin D deficiency, unspecified; I10 Essential (primary) hypertension; Z86.14 Personal history of Methicillin resistant Staphylococcus aureus infection; Z86.59 Personal history of other mental and behavioral disorders; Z87.891 Personal history of nicotine dependence; Z88.1 Allergy status to other antibiotic agents; Z88.8 Allergy status to other drugs, medicaments and biological substances; Z79.82 Long term (current) use of aspirin; Z79.899 Other long term (current) drug therapy

== ENCOUNTER → 2022-03-23 | Outpatient (CLI) | payer OTHER ==
[~2022-03-23] MED LIST changes: +ACYC1CAP20 PO
== END ==
LOC: M PAIN 09:00
PROVIDERS: ATTEND Nurse Practitioner Family
DX: M47.816 Spondylosis without myelopathy or radiculopathy, lumbar region (principal); K21.9 Gastro-esophageal reflux disease without esophagitis; J30.9 Allergic rhinitis, unspecified; M85.80 Other specified disorders of bone density and structure, unspecified site; R73.01 Impaired fasting glucose; E78.00 Pure hypercholesterolemia, unspecified; E55.9 Vitamin D deficiency, unspecified; F32.A Depression, unspecified; K58.9 Irritable bowel syndrome, unspecified; I10 Essential (primary) hypertension; M19.012 Primary osteoarthritis, left shoulder; M16.12 Unilateral primary osteoarthritis, left hip; Z85.820 Personal history of malignant melanoma of skin; Z85.828 Personal history of other malignant neoplasm of skin; B00.9 Herpesviral infection, unspecified; Z87.891 Personal history of nicotine dependence; Z79.899 Other long term (current) drug therapy; Z88.1 Allergy status to other antibiotic agents; Z88.8 Allergy status to other drugs, medicaments and biological substances

== ENCOUNTER → 2022-03-26 | Outpatient (REF) | payer OTHER | LOC: M SFHCWAGY 16:51 | PROVIDERS: ATTEND Nurse Practitioner Family | DX: R39.15 Urgency of urination (principal) ==

== ENCOUNTER → 2022-03-30 | Outpatient (CLI) | payer OTHER | LOC: M LABSMTC 11:07 | PROVIDERS: ATTEND Anesthesiology | DX: Z01.812 Encounter for preprocedural laboratory examination (principal); Z11.52 Encounter for screening for COVID-19 ==

== ENCOUNTER 2022-04-03 12:17 | Day surgery (SDC) | payer OTHER ==
[~2022-04-03] VITALS: Ht 165.1 cm; Wt 61.1 kg
[~2022-04-03 12:17] MED LIST changes: +LIDOCAINE 2% 100MG/5ML SDV (FOR ANES.) As Ordered ONE; +NS 1,000 ML IV ONE; +propofoL 200 MG/20 ML VIAL As Ordered ONE
[2022-04-03] MEDS ORDERED: MIDAZOLAM INJ 2MG/2ML VIAL As Ordered ONE (13:07)
[2022-04-03 14:15] VITALS: BP 132/64
== END 2022-04-03 14:27 | disposition home or self-care (01) ==
LOC: M OPP 12:17
PROVIDERS: ATTEND Internal Medicine Gastroenterology
DX: Z12.11 Encounter for screening for malignant neoplasm of colon (principal); D12.2 Benign neoplasm of ascending colon; K64.8 Other hemorrhoids; K57.30 Diverticulosis of large intestine without perforation or abscess without bleeding; K44.9 Diaphragmatic hernia without obstruction or gangrene; K31.7 Polyp of stomach and duodenum; Z79.02 Long term (current) use of antithrombotics/antiplatelets; Z79.82 Long term (current) use of aspirin; Z79.899 Other long term (current) drug therapy; Z88.8 Allergy status to other drugs, medicaments and biological substances; Z85.820 Personal history of malignant melanoma of skin; Z87.891 Personal history of nicotine dependence; Z80.3 Family history of malignant neoplasm of breast; Z80.42 Family history of malignant neoplasm of prostate; Z80.52 Family history of malignant neoplasm of bladder; I10 Essential (primary) hypertension; E78.5 Hyperlipidemia, unspecified; F41.9 Anxiety disorder, unspecified; D86.9 Sarcoidosis, unspecified; Z92.21 Personal history of antineoplastic chemotherapy

== ENCOUNTER → 2022-04-16 | Outpatient (CLI) | payer MEDICARE, OTHER ==
[~2022-04-16] MED LIST changes: -LIDOCAINE 2% 100MG/5ML SDV (FOR ANES.) As Ordered ONE; -NS 1,000 ML IV ONE; -propofoL 200 MG/20 ML VIAL As Ordered ONE
== END ==
LOC: M PLAIMG 06:56
PROVIDERS: ATTEND Nurse Practitioner Family
DX: M47.817 Spondylosis without myelopathy or radiculopathy, lumbosacral region (principal)

== ENCOUNTER → 2022-04-27 | Outpatient (CLI) | payer OTHER | LOC: M PAIN 15:00 | PROVIDERS: ATTEND Nurse Practitioner Family | DX: M47.816 Spondylosis without myelopathy or radiculopathy, lumbar region (principal); K21.9 Gastro-esophageal reflux disease without esophagitis; J30.9 Allergic rhinitis, unspecified; M85.80 Other specified disorders of bone density and structure, unspecified site; R73.01 Impaired fasting glucose; E78.00 Pure hypercholesterolemia, unspecified; E55.9 Vitamin D deficiency, unspecified; F32.A Depression, unspecified; K58.9 Irritable bowel syndrome, unspecified; I10 Essential (primary) hypertension; M19.012 Primary osteoarthritis, left shoulder; M16.12 Unilateral primary osteoarthritis, left hip; Z85.820 Personal history of malignant melanoma of skin; Z79.82 Long term (current) use of aspirin; Z79.899 Other long term (current) drug therapy; Z88.1 Allergy status to other antibiotic agents; Z88.8 Allergy status to other drugs, medicaments and biological substances ==

== ENCOUNTER → 2022-04-28 | Outpatient (REF) | payer OTHER | LOC: M SFHCDERM 14:34 | PROVIDERS: ATTEND Nurse Practitioner Family | DX: C44.702 Unspecified malignant neoplasm of skin of right lower limb, including hip (principal) | CPT/HCPCS: 11102; 11103; 88305; G0463 ==

== ENCOUNTER → 2022-05-28 | Outpatient (REF) | payer OTHER | LOC: M SFHCPLAZ 17:04 | PROVIDERS: ATTEND Nurse Practitioner Adult Health | DX: R31.9 Hematuria, unspecified (principal) ==

== ENCOUNTER → 2022-07-09 | Outpatient (REF) | payer OTHER | LOC: M SFHCDERM 13:16 | PROVIDERS: ATTEND Nurse Practitioner Family | DX: T81.49XA Infection following a procedure, other surgical site, initial encounter (principal) ==

== ENCOUNTER → 2022-07-29 | Outpatient (REF) | payer OTHER | LOC: M SFHCDERM 17:58 | PROVIDERS: ATTEND Dermatology | DX: T14.90XD Injury, unspecified, subsequent encounter (principal) ==

== ENCOUNTER → 2022-08-05 | Outpatient (REF) | payer OTHER | LOC: M SFHCDERM 17:39 | PROVIDERS: ATTEND Dermatology | DX: T14.90XD Injury, unspecified, subsequent encounter (principal) ==

== ENCOUNTER → 2022-08-13 | Outpatient (CLI) | payer OTHER | LOC: M SOG 09:38 | PROVIDERS: ATTEND Orthopaedic Surgery | DX: M25.552 Pain in left hip (principal) ==

== ENCOUNTER → 2022-09-11 | Outpatient (REF) | payer OTHER | LOC: M SFHCDERM 17:27 | PROVIDERS: ATTEND Dermatology | DX: T14.90XD Injury, unspecified, subsequent encounter (principal) ==

== ENCOUNTER → 2022-10-14 | Outpatient (CLI) | payer OTHER ==
[2022-10-14 17:59] LABS: HEMATOCRIT 39.3 % (36.0-47.0); HEMOGLOBIN 13.1 g/dl (12.0-15.5); MEAN CORPUSCULAR HEMOGLOBIN 30.6 pg (27.0-33.0); MEAN CORPUSCULAR HGB CONC 33.3 g/dl (32.0-36.5); MEAN CORPUSCULAR VOLUME 91.8 fl (80.0-96.0); PLATELET COUNT, AUTOMATED 264 10^3/uL (150-450); RED BLOOD COUNT 4.28 10^6/uL (4.00-5.40)
[2022-10-14 18:03] LABS: CREATININE, URINE 87.2 MG/DL; MAU/CREAT RATIO 3.4 MCG/MG (0.0-30.0)
[2022-10-14 18:04] LABS: C REACTIVE PROTEIN QUANTITATIV < 0.40 MG/DL (<1.0)
[2022-10-14 18:09] LABS: ALKALINE PHOSPHATASE 68 U/L (46-116); ALT/SGPT 19 U/L (7.0-40); AST/SGOT 13 U/L (<34); BILIRUBIN,TOTAL 0.4 MG/DL (0.3-1.2); BLOOD UREA NITROGEN 18 MG/DL (9-23); CALCIUM LEVEL 9.2 MG/DL (8.3-10.6); CARBON DIOXIDE LEVEL 34 MMOL/L (20-31); CHLORIDE LEVEL 102 MMOL/L (98-107); CHOLESTEROL LEVEL 185 MG/DL (<200); CHOLESTEROL RISK RATIO 3.15 (<5); CREATININE FOR GFR 0.87 MG/DL (0.55-1.30); FREE T4 1.09 NG/DL (0.89-1.76); GLOMERULAR FILTRATION RATE > 60.0 (>39); GLUCOSE, FASTING 91 MG/DL (74-106); HDL CHOLESTEROL 58.6 MG/DL (>40); LDL CHOLESTEROL 81.2 MG/DL (<100); NON-HDL-C 126.4 MG/DL; POTASSIUM SERUM 3.9 MMOL/L (3.5-5.1); SODIUM LEVEL 140 MMOL/L (136-145); THYROID STIMULATING HORMONE 0.671 uIU/ML (0.55-4.78); TOTAL 25(OH) VITAMIN D 75.6 NG/ML (20.0-100.0); TOTAL PROTEIN 6.7 G/DL (5.7-8.2); TRIGLYCERIDES LEVEL 226 MG/DL (<150); VITAMIN B12 LEVEL 623 PG/ML (211-911)
[2022-10-14 18:16] LABS: HEMOGLOBIN A1c 5.5 % (4.0-6.0)
== END ==
LOC: M PLALAB 15:24
PROVIDERS: ATTEND Internal Medicine Hematology
DX: R73.01 Impaired fasting glucose (principal); Z79.899 Other long term (current) drug therapy

== ENCOUNTER → 2022-10-15 | Outpatient (CLI) | payer OTHER | LOC: M SOG 11:08 | PROVIDERS: ATTEND Orthopaedic Surgery | DX: M19.011 Primary osteoarthritis, right shoulder (principal); M19.012 Primary osteoarthritis, left shoulder; M85.811 Other specified disorders of bone density and structure, right shoulder; M85.812 Other specified disorders of bone density and structure, left shoulder; M25.512 Pain in left shoulder; M25.511 Pain in right shoulder ==

== ENCOUNTER → 2023-01-27 | Outpatient (REF) | payer OTHER ==
[~2023-01-27] MED LIST changes: +IBUP80TA; +TRIA37.577
[2023-01-27 15:33] LABS: APPEARANCE, URINE HAZY (CLEAR); BACTERIA, URINE AUTO 1+ (NEGATIVE); BILIRUBIN, URINE AUTO NEGATIVE (NEGATIVE); BLOOD, URINE BLOOD NEGATIVE (NEGATIVE); COLOR, URINE YELLOW (YELLOW); GLUCOSE, URINE (UA) AUTO NEGATIVE (NEGATIVE); KETONE, URINE AUTO NEGATIVE (NEGATIVE); LEUKOCYTE ESTERASE, URINE AUTO 2+ (NEGATIVE); MUCUS, URINE SMALL (NEGATIVE); NITRITE, URINE AUTO NEGATIVE (NEGATIVE); PROTEIN, URINE AUTO NEGATIVE (NEGATIVE); RBC, URINE AUTO 1 /HPF (0-3); SPECIFIC GRAVITY URINE AUTO 1.018 (1.002-1.035); SQUAMOUS EPITHELIAL CELL UR AU 0 /HPF (0-6); UROBILINOGEN, URINE AUTO 0.2 mg/dL (0.0-2.0); WBC, URINE AUTO 6 /HPF (0-3)
== END ==
LOC: M SMT 12:50
PROVIDERS: ATTEND Specialist
DX: R30.0 Dysuria (principal)

== ENCOUNTER → 2023-02-19 | Outpatient (CLI) | payer OTHER, MEDICAID | LOC: M WHC 12:33 | PROVIDERS: ATTEND Internal Medicine Hematology | DX: Z12.31 Encounter for screening mammogram for malignant neoplasm of breast (principal); Z13.820 Encounter for screening for osteoporosis; Z90.710 Acquired absence of both cervix and uterus; M81.0 Age-related osteoporosis without current pathological fracture ==

== ENCOUNTER → 2023-03-03 | Outpatient (CLI) | payer OTHER, MEDICAID | LOC: M WHC 10:39 | PROVIDERS: ATTEND Internal Medicine Hematology | DX: Z85.89 Personal history of malignant neoplasm of other organs and systems (principal); R92.2 Inconclusive mammogram | CPT/HCPCS: 76642; 77065; G0279 ==

== ENCOUNTER → 2023-04-09 | Outpatient (REF) | payer OTHER, MEDICAID ==
[2023-04-09 13:25] LABS: APPEARANCE, URINE CLEAR (CLEAR); BACTERIA, URINE AUTO NEGATIVE (NEGATIVE); BILIRUBIN, URINE AUTO NEGATIVE (NEGATIVE); BLOOD, URINE BLOOD NEGATIVE (NEGATIVE); CALCIUM OXALATE CRYSTALS MODERATE; COLOR, URINE YELLOW (YELLOW); GLUCOSE, URINE (UA) AUTO NEGATIVE (NEGATIVE); KETONE, URINE AUTO NEGATIVE (NEGATIVE); LEUKOCYTE ESTERASE, URINE AUTO TRACE (NEGATIVE); MUCUS, URINE SMALL (NEGATIVE); NITRITE, URINE AUTO NEGATIVE (NEGATIVE); PROTEIN, URINE AUTO NEGATIVE (NEGATIVE); RBC, URINE AUTO 1 /HPF (0-3); SPECIFIC GRAVITY URINE AUTO 1.024 (1.002-1.035); SQUAMOUS EPITHELIAL CELL UR AU 0 /HPF (0-6); UROBILINOGEN, URINE AUTO 0.2 mg/dL (0.0-2.0); WBC, URINE AUTO 2 /HPF (0-3)
== END ==
LOC: M LABSMT 09:02
PROVIDERS: ATTEND Specialist
DX: R31.29 Other microscopic hematuria (principal)

== ENCOUNTER → 2023-04-21 | Outpatient (CLI) | payer OTHER, MEDICAID ==
[2023-04-21 15:39] LABS: HEMATOCRIT 40.3 % (36.0-47.0); HEMOGLOBIN 13.2 g/dl (12.0-15.5); MEAN CORPUSCULAR HEMOGLOBIN 30.2 pg (27.0-33.0); MEAN CORPUSCULAR HGB CONC 32.8 g/dl (32.0-36.5); MEAN CORPUSCULAR VOLUME 92.2 fl (80.0-96.0); PLATELET COUNT, AUTOMATED 265 10^3/uL (150-450); RED BLOOD COUNT 4.37 10^6/uL (4.00-5.40); WHITE BLOOD COUNT 7.9 10^3/uL (4.0-10.0)
[2023-04-21 16:07] LABS: CREATININE, URINE 95.3 MG/DL; MAU/CREAT RATIO 5.2 MCG/MG (0.0-30.0)
[2023-04-21 16:10] LABS: VITAMIN B12 LEVEL 526 PG/ML (211-911)
[2023-04-21 16:11] LABS: TOTAL 25(OH) VITAMIN D 88.3 NG/ML (20.0-100.0)
[2023-04-21 16:13] LABS: THYROID STIMULATING HORMONE 0.505 uIU/ML (0.55-4.78)
[2023-04-21 16:14] LABS: FREE T4 1.24 NG/DL (0.89-1.76)
[2023-04-21 16:16] LABS: C REACTIVE PROTEIN QUANTITATIV < 0.40 MG/DL (<1.0)
[2023-04-21 16:18] LABS: ALBUMIN 3.8 G/DL (3.2-5.2); ALKALINE PHOSPHATASE 57 U/L (46-116); ALT/SGPT 16 U/L (7.0-40); AST/SGOT 15 U/L (<34); BILIRUBIN,TOTAL 0.3 MG/DL (0.3-1.2); BLOOD UREA NITROGEN 21 MG/DL (9-23); CALCIUM LEVEL 9.1 MG/DL (8.3-10.6); CARBON DIOXIDE LEVEL 33 MMOL/L (20-31); CHLORIDE LEVEL 103 MMOL/L (98-107); CHOLESTEROL LEVEL 148 MG/DL (<200); CHOLESTEROL RISK RATIO 2.77 (<5); CREATININE FOR GFR 0.66 MG/DL (0.55-1.30); GLOMERULAR FILTRATION RATE > 60.0 (>39); GLUCOSE, FASTING 92 MG/DL (74-106); HDL CHOLESTEROL 53.3 MG/DL (>40); LDL CHOLESTEROL 59.7 MG/DL (<100); NON-HDL-C 94.7 MG/DL; POTASSIUM SERUM 3.4 MMOL/L (3.5-5.1); SODIUM LEVEL 142 MMOL/L (136-145); TOTAL PROTEIN 6.6 G/DL (5.7-8.2); TRIGLYCERIDES LEVEL 175 MG/DL (<150)
[2023-04-21 16:25] LABS: HEMOGLOBIN A1c 5.7 % (4.0-6.0)
== END ==
LOC: M PLALAB 13:43
PROVIDERS: ATTEND Internal Medicine Hematology
DX: I10 Essential (primary) hypertension (principal); Z79.899 Other long term (current) drug therapy

== ENCOUNTER → 2023-09-08 | Outpatient (CLI) | payer OTHER, MEDICAID | LOC: M SOG 07:51 | PROVIDERS: ATTEND Physician Assistant | DX: M25.562 Pain in left knee (principal); M25.561 Pain in right knee ==

== ENCOUNTER → 2023-12-14 | Outpatient (REF) | payer MEDICARE, MEDICAID ==
[2023-12-14 18:00] LABS: BASO # 0.1 10^3/uL (0.0-0.2); BASO % 0.5 % (0.0-1.0); EOS # 0.2 10^3/uL (0.0-0.5); EOS % 1.6 % (0.0-3.0); HEMATOCRIT 42.2 % (36.0-47.0); LYMPH # 2.8 10^3/uL (1.5-5.0); MEAN CORPUSCULAR HEMOGLOBIN 30.5 pg (27.0-33.0); MEAN CORPUSCULAR HGB CONC 33.2 g/dl (32.0-36.5); MEAN CORPUSCULAR VOLUME 91.9 fl (80.0-96.0); MONO % 9.2 % (2.0-8.0); NEUTROPHILS % 63.3 % (36.0-66.0); PLATELET COUNT, AUTOMATED 256 10^3/uL (150-450); RED BLOOD COUNT 4.59 10^6/uL (4.00-5.40)
[2023-12-14 18:21] LABS: ALBUMIN 4.1 G/DL (3.2-5.2); ALKALINE PHOSPHATASE 48 U/L (46-116); ALT/SGPT 18 U/L (7.0-40); AST/SGOT 15 U/L (<34); BILIRUBIN,TOTAL 0.4 MG/DL (0.3-1.2); BLOOD UREA NITROGEN 20 MG/DL (9-23); CALCIUM LEVEL 9.6 MG/DL (8.3-10.6); CARBON DIOXIDE LEVEL 33 MMOL/L (20-31); CHLORIDE LEVEL 102 MMOL/L (98-107); GLOMERULAR FILTRATION RATE > 60.0 (>39); GLUCOSE, FASTING 81 MG/DL (74-106); POTASSIUM SERUM 3.6 MMOL/L (3.5-5.1); SODIUM LEVEL 139 MMOL/L (136-145)
[2023-12-14 18:23] LABS: FREE T4 1.32 NG/DL (0.89-1.76); THYROID STIMULATING HORMONE 0.419 uIU/ML (0.55-4.78); TOTAL 25(OH) VITAMIN D 57.2 NG/ML (20.0-100.0)
== END ==
LOC: M SFHCADAM 15:29
PROVIDERS: ATTEND Physician Assistant
DX: R00.2 Palpitations (principal); M81.0 Age-related osteoporosis without current pathological fracture; K59.09 Other constipation; M48.061 Spinal stenosis, lumbar region without neurogenic claudication; K21.9 Gastro-esophageal reflux disease without esophagitis; R76.8 Other specified abnormal immunological findings in serum; N95.1 Menopausal and female climacteric states; Z85.820 Personal history of malignant melanoma of skin; E78.00 Pure hypercholesterolemia, unspecified; R73.01 Impaired fasting glucose

== ENCOUNTER → 2023-12-15 | Outpatient (REF) | payer MEDICARE, MEDICAID ==
[2023-12-15 13:15] LABS: THYROID STIMULATING HORMONE 0.358 uIU/ML (0.55-4.78)
[2023-12-15 13:17] LABS: FREE T4 1.24 NG/DL (0.89-1.76)
[2023-12-15 13:19] LABS: FREE T3 3.8 PG/ML (2.3-4.2); TOTAL T3 112.9 NG/DL (60.0-181.0)
== END ==
LOC: M SFHCADAM 09:53
PROVIDERS: ATTEND Physician Assistant
DX: R79.89 Other specified abnormal findings of blood chemistry (principal); E07.9 Disorder of thyroid, unspecified

== ENCOUNTER 2024-01-10 15:50 | Emergency (ER) | payer MEDICARE, MEDICAID ==
[~2024-01-10] VITALS: Ht 167.6 cm; Wt 66.9 kg
[~2024-01-10 15:50] MED LIST changes: -TRIA37.577; +TRIA37.577 PO
[2024-01-10] MEDS ORDERED: IBAN150T6 PO (16:00)
[2024-01-10] MEDS ORDERED: ESTR0.1C5 VG (16:00)
[2024-01-10] MEDS ORDERED: D3-5CAP PO (16:00)
[2024-01-10] MEDS ORDERED: ACET650T61 PO (16:00)
[2024-01-10 16:44] LABS: BASO % 0.3 % (0.0-1.0); EOS # 0.1 10^3/uL (0.0-0.5); EOS % 0.5 % (0.0-3.0); HEMATOCRIT 43.7 % (36.0-47.0); HEMOGLOBIN 14.6 g/dl (12.0-15.5); LYMPH % 17.1 % (24.0-44.0); MEAN CORPUSCULAR HEMOGLOBIN 30.6 pg (27.0-33.0); MEAN CORPUSCULAR HGB CONC 33.4 g/dl (32.0-36.5); MEAN CORPUSCULAR VOLUME 91.6 fl (80.0-96.0); MONO # 0.7 10^3/uL (0.0-0.8); NEUTROPHILS # 8.7 10^3/uL (1.5-8.5); NEUTROPHILS % 75.7 % (36.0-66.0); PLATELET COUNT, AUTOMATED 244 10^3/uL (150-450); RED BLOOD COUNT 4.77 10^6/uL (4.00-5.40); WHITE BLOOD COUNT 11.5 10^3/uL (4.0-10.0)
[2024-01-10 17:13] LABS: LIPASE 28 U/L (12-53)
[2024-01-10 17:15] LABS: ALBUMIN 3.9 G/DL (3.2-5.2); ALKALINE PHOSPHATASE 49 U/L (35-104); ALT/SGPT 23 U/L (7.0-40); AST/SGOT 19 U/L (<34); BILIRUBIN,DIRECT 0.1 MG/DL (<0.4); BILIRUBIN,TOTAL 0.4 MG/DL (0.3-1.2); BLOOD UREA NITROGEN 19 MG/DL (9-23); CALCIUM LEVEL 9.9 MG/DL (8.3-10.6); CARBON DIOXIDE LEVEL 34 MMOL/L (20-31); CHLORIDE LEVEL 103 MMOL/L (98-107); CK-MB VALUE MASS 3.5 NG/ML (<3.6); CPK CREATINE PHOSPHOKINASE 152 U/L (34-145); CREATININE FOR GFR 0.59 MG/DL (0.55-1.30); GLOMERULAR FILTRATION RATE > 60.0 (>39); GLUCOSE, FASTING 114 MG/DL (74-106); POTASSIUM SERUM 3.3 MMOL/L (3.5-5.1); SODIUM LEVEL 141 MMOL/L (136-145); TOTAL PROTEIN 6.8 G/DL (5.7-8.2)
[2024-01-10 17:17] LABS: FREE T4 1.23 NG/DL (0.89-1.76); THYROID STIMULATING HORMONE 1.138 uIU/ML (0.55-4.78)
[2024-01-10] MEDS ORDERED: ISOVUE-370 76% 100ML VIAL As Ordered ONE (18:07)
[2024-01-10] MEDS: ASPIRIN 81MG CHEW TABLET PO ONE (18:23)
[2024-01-10] MEDS: POTASSIUM CHLORIDE 10MEQ SR TABLET PO ONE (18:24)
[2024-01-10 18:28] LABS: CK-MB VALUE MASS 3.4 NG/ML (<3.6)
[2024-01-10 18:29] LABS: MB/CK RELATIVE INDEX 2.48 (< OR =4)
[2024-01-10 18:46] LABS: MAGNESIUM LEVEL 2.1 MG/DL (1.8-2.4)
[2024-01-10 19:45] VITALS: TEMP 98
[2024-01-10] MEDS ORDERED: POTA10CA70 PO (19:47)
[2024-01-10] MEDS ORDERED: HOME MED LIST COMPLETE! XX SCH (19:50)
[2024-01-10 20:14] LABS: CK-MB VALUE MASS 4.1 NG/ML (<3.6)
[2024-01-10 20:15] LABS: MB/CK RELATIVE INDEX 3.22 (< OR =4)
[2024-01-10 20:30] VITALS: BP 131/72; O2SAT 93
== END 2024-01-10 21:06 | disposition home or self-care (01) ==
LOC: M ED 15:50 → EDBD 15:50 → M ED 21:06
DX: R00.2 Palpitations (principal); I47.10 Supraventricular tachycardia, unspecified; K21.9 Gastro-esophageal reflux disease without esophagitis; Z87.891 Personal history of nicotine dependence; Z88.8 Allergy status to other drugs, medicaments and biological substances; Z79.1 Long term (current) use of non-steroidal anti-inflammatories (NSAID); Z79.899 Other long term (current) drug therapy
CPT/HCPCS: 36415; 71045; 71275; 80047; 80048; 80076; 82550; 82553; 83690; 83735; 84439; 84443; 84484; 85025; 87486; 87581; 87633; 87798; 93005; 93041; 94760; 99285; G0463; Q9967

== ENCOUNTER → 2024-02-08 | Outpatient (CLI) | payer MEDICARE, MEDICAID ==
[~2024-02-08] MED LIST changes: +ACET650T61 PO; +D3-5CAP PO; +ESTR0.1C5 VG; +IBAN150T10 PO; +POTA10CA70 PO
== END ==
LOC: M WHC 13:03
PROVIDERS: ATTEND Physician Assistant
DX: R92.8 Other abnormal and inconclusive findings on diagnostic imaging of breast (principal)
CPT/HCPCS: 77066; G0279

== ENCOUNTER → 2024-02-09 | Outpatient (CLI) | payer MEDICARE, MEDICAID | LOC: M RAD 12:55 | PROVIDERS: ATTEND Otolaryngology | DX: R22.1 Localized swelling, mass and lump, neck (principal); E07.89 Other specified disorders of thyroid; E04.2 Nontoxic multinodular goiter ==

== ENCOUNTER → 2024-02-14 | Outpatient (CLI) | payer MEDICARE, MEDICAID | LOC: M PLAIMG 13:10 | PROVIDERS: ATTEND Physician Assistant | DX: I47.10 Supraventricular tachycardia, unspecified (principal); Z28.21 Immunization not carried out because of patient refusal ==

== ENCOUNTER → 2024-03-27 | Outpatient (CLI) | payer MEDICARE, MEDICAID | LOC: M PLAIMG 12:29 | PROVIDERS: ATTEND Physician Assistant | DX: R91.8 Other nonspecific abnormal finding of lung field (principal); J47.9 Bronchiectasis, uncomplicated; J98.11 Atelectasis; J84.10 Pulmonary fibrosis, unspecified ==

== ENCOUNTER 2024-04-08 15:26 | Inpatient (IN) | payer MEDICARE, MEDICAID ==
[~2024-04-08] VITALS: Ht 165.1 cm; Wt 67.1 kg
[2024-04-08 16:30] LABS: BASO # 0.1 10^3/uL (0.0-0.2); BASO % 0.3 % (0.0-1.0); EOS % 0.1 % (0.0-3.0); HEMATOCRIT 42.2 % (36.0-47.0); HEMOGLOBIN 14.3 g/dl (12.0-15.5); LYMPH # 0.3 10^3/uL (1.5-5.0); MEAN CORPUSCULAR HEMOGLOBIN 30.6 pg (27.0-33.0); MEAN CORPUSCULAR HGB CONC 33.9 g/dl (32.0-36.5); MEAN CORPUSCULAR VOLUME 90.2 fl (80.0-96.0); MONO # 1.5 10^3/uL (0.0-0.8); MONO % 4.4 % (2.0-8.0); NEUTROPHILS # 30.6 10^3/uL (1.5-8.5); NEUTROPHILS % 92.4 % (36.0-66.0); PLATELET COUNT, AUTOMATED 212 10^3/uL (150-450); RED BLOOD COUNT 4.68 10^6/uL (4.00-5.40); WHITE BLOOD COUNT 33.2 10^3/uL (4.0-10.0)
[2024-04-08 16:44] LABS: INR 1.07; PARTIAL THROMBOPLASTIN TIME 33.7 SECONDS (24.8-34.2); PROTHROMBIN TIME 14.2 SECONDS (12.5-14.5)
[2024-04-08 16:50] LABS: HEMOGLOBIN A1c 5.8 % (4.0-6.0)
[2024-04-08 17:01] LABS: ALBUMIN 3.2 G/DL (3.2-5.2); BILIRUBIN,DIRECT 0.1 MG/DL (<0.4); BILIRUBIN,TOTAL 0.3 MG/DL (0.3-1.2); CALCIUM LEVEL 9.3 MG/DL (8.3-10.6); CREATININE FOR GFR 3.37 MG/DL (0.55-1.30); GLOMERULAR FILTRATION RATE 14.2 (>39); POTASSIUM SERUM 3.3 MMOL/L (3.5-5.1); TOTAL PROTEIN 6.9 G/DL (5.7-8.2)
[2024-04-08 17:04] LABS: ERYTHROCYTE SEDIMENTATION RATE 75 mm/hr (0-30)
[2024-04-08 17:08] LABS: PROCALCITONIN 5.86 ng/ml
[2024-04-08] MEDS ORDERED: HOME MED LIST COMPLETE! XX SCH (17:10)
[2024-04-08] MEDS ORDERED: ACYC1TAB4 PO (17:10)
[2024-04-08] MEDS ORDERED: POTA-151 PO (17:10)
[2024-04-08 17:14] LABS: C REACTIVE PROTEIN QUANTITATIV 44.1 MG/DL (<1.0)
[2024-04-08] MEDS ORDERED: CEFTAROLINE FOSAMIL 600 MG in DEXTROSE 5% (D5W) ADV/MINI-BAG 50 ML IV ONE (17:20)
[2024-04-08] MEDS: ONDANSETRON 4MG 2ML VIAL IV ONE (17:59)
[2024-04-08] MEDS: NS (Normal Saline) 0.9% 1,000 ML IV ONE (17:59)
[2024-04-08] MEDS: CEFTAROLINE FOSAMIL 200 MG in D5W 50 ML IV ONE (18:20)
[2024-04-08 18:33] LABS: CREATININE,RANDOM URINE 120.7 MG/DL
[2024-04-08 18:40] LABS: KETONE, URINE AUTO RFX NEGATIVE (NEGATIVE); NITRITE, URINE AUTO RFX NEGATIVE (NEGATIVE); RBC, URINE AUTO RFX 32 /HPF (0-3); SQUAM EPITHELIAL CELL UR AURFX 9 /HPF (0-6); TRANSITIONAL EPITHELIAL AU RFX 4 /HPF
[2024-04-08 18:42] LABS: LEUKOCYTE ESTERASE UR AUTO RFX 3+ (NEGATIVE); WBC, URINE AUTO RFX TNTC /HPF (0-3)
[2024-04-08 22:02] VITALS: BP 129/68; TEMP 99.1; O2SAT 95
[2024-04-08] MEDS: ACETAMINOPHEN *IV* 1,000 MG in IV 1 EA IV PRN (23:55)
[2024-04-08] MEDS: POTASSIUM CHLORIDE 10% LIQ 20MEQ/15ML UDC PO SCH (23:55)
[2024-04-09] VITALS (8 sets, daily range): BP systolic 108–135; BP diastolic 61–67; TEMP 98–100.9; O2SAT 95–97
[2024-04-09] MEDS: ONDANSETRON 4MG 2ML VIAL IV PRN (00:30)
[2024-04-09] MEDS: LR 1,000 ML IV SCH ×2 (04:12→12:31)
[2024-04-09] MEDS: CEFTAROLINE FOSAMIL 200 MG in D5W 50 ML IV SCH (05:00)
[2024-04-09 06:56] LABS: BASO # 0.1 10^3/uL (0.0-0.2); BASO % 0.2 % (0.0-1.0); EOS # 0.1 10^3/uL (0.0-0.5); EOS % 0.4 % (0.0-3.0); HEMATOCRIT 37.4 % (36.0-47.0); HEMOGLOBIN 12.5 g/dl (12.0-15.5); LYMPH # 0.4 10^3/uL (1.5-5.0); LYMPH % 1.5 % (24.0-44.0); MEAN CORPUSCULAR HEMOGLOBIN 30.4 pg (27.0-33.0); MEAN CORPUSCULAR HGB CONC 33.4 g/dl (32.0-36.5); MONO # 1.1 10^3/uL (0.0-0.8); MONO % 4.6 % (2.0-8.0); NEUTROPHILS # 22.7 10^3/uL (1.5-8.5); NEUTROPHILS % 92.4 % (36.0-66.0); PLATELET COUNT, AUTOMATED 193 10^3/uL (150-450); RED BLOOD COUNT 4.11 10^6/uL (4.00-5.40); WHITE BLOOD COUNT 24.6 10^3/uL (4.0-10.0)
[2024-04-09 07:26] LABS: PROCALCITONIN 5.59 ng/ml
[2024-04-09 07:34] LABS: ERYTHROCYTE SEDIMENTATION RATE 44 mm/hr (0-30)
[2024-04-09 07:37] LABS: ALBUMIN 2.4 G/DL (3.2-5.2); BILIRUBIN,TOTAL 0.2 MG/DL (0.3-1.2); C REACTIVE PROTEIN QUANTITATIV 32.93 MG/DL (<1.0); CALCIUM LEVEL 8.4 MG/DL (8.3-10.6); CREATININE FOR GFR 4.26 MG/DL (0.55-1.30); GLOMERULAR FILTRATION RATE 10.8 (>39); POTASSIUM SERUM 4.1 MMOL/L (3.5-5.1); TOTAL PROTEIN 5.5 G/DL (5.7-8.2)
[2024-04-09] MEDS ORDERED: MOM 30ML SUSPENSION UDC PO PRN (07:40)
[2024-04-09] MEDS: LR 1,000 ML IV ONE (08:01)
[2024-04-09] MEDS: VENLAFAXINE **XR** 75MG CAPSULE PO SCH (08:35)
[2024-04-09] MEDS: ASPIRIN 81MG ENTERIC TABLET PO SCH (08:35)
[2024-04-09] MEDS: OMEPRAZOLE 20MG CAP PO SCH (08:36)
[2024-04-09] MEDS: DOCUSATE SODIUM 100MG CAPSULE PO SCH (08:36)
[2024-04-09] MEDS ORDERED: DYAZIDE 37.5/25 CAP (TRIAM/HCTZ) PO SCH (09:00)
[2024-04-09] MEDS ORDERED: POTASSIUM CHLORIDE 10MEQ SR TABLET PO SCH (09:00)
[2024-04-09] MEDS: metroNIDAZOLE 500 MG in IV 1 EA IV SCH (11:07)
[2024-04-09] MEDS: HEPARIN SOD (PORCINE) 5000UNITS/ML 1ML VIAL/SYRINGE SC SCH (13:32)
[2024-04-09] MEDS: SIMVASTATIN 20 MG TAB PO SCH (21:07)
[2024-04-09] MEDS: ACETAMINOPHEN 325 MG TAB PO PRN (21:08)
[2024-04-09] MEDS: RAMELTEON 8 MG TAB (ROZEREM) PO SCH (21:09)
[2024-04-10] VITALS: BP 115/70; TEMP 97.3; O2SAT 95
[2024-04-10 04:00] VITALS: BP 120/60; TEMP 97.4; O2SAT 94
[2024-04-10 05:22] LABS: BASO # 0.1 10^3/uL (0.0-0.2); BASO % 0.2 % (0.0-1.0); EOS # 0.1 10^3/uL (0.0-0.5); EOS % 0.5 % (0.0-3.0); HEMATOCRIT 35.6 % (36.0-47.0); HEMOGLOBIN 11.7 g/dl (12.0-15.5); LYMPH # 0.7 10^3/uL (1.5-5.0); MEAN CORPUSCULAR HEMOGLOBIN 30.5 pg (27.0-33.0); MEAN CORPUSCULAR HGB CONC 32.9 g/dl (32.0-36.5); MEAN CORPUSCULAR VOLUME 92.7 fl (80.0-96.0); MONO # 1.4 10^3/uL (0.0-0.8); MONO % 6.4 % (2.0-8.0); NEUTROPHILS # 19.9 10^3/uL (1.5-8.5); NEUTROPHILS % 89.3 % (36.0-66.0); PLATELET COUNT, AUTOMATED 182 10^3/uL (150-450); RED BLOOD COUNT 3.84 10^6/uL (4.00-5.40); WHITE BLOOD COUNT 22.2 10^3/uL (4.0-10.0)
[2024-04-10 05:28] LABS: ERYTHROCYTE SEDIMENTATION RATE 63 mm/hr (0-30)
[2024-04-10 05:54] LABS: PROCALCITONIN 3.16 ng/ml
[2024-04-10 06:02] LABS: ALBUMIN 2.2 G/DL (3.2-5.2); BILIRUBIN,TOTAL 0.3 MG/DL (0.3-1.2); C REACTIVE PROTEIN QUANTITATIV 29.33 MG/DL (<1.0); CALCIUM LEVEL 8.2 MG/DL (8.3-10.6); CREATININE FOR GFR 4.66 MG/DL (0.55-1.30); GLOMERULAR FILTRATION RATE 9.8 (>39); POTASSIUM SERUM 4.9 MMOL/L (3.5-5.1); TOTAL PROTEIN 5.2 G/DL (5.7-8.2)
[2024-04-10 07:30] VITALS: BP 107/63; TEMP 97.5; O2SAT 96
[2024-04-10 11:59] VITALS: BP 116/62; TEMP 98; O2SAT 96
[2024-04-10 16:21] VITALS: BP 138/66; TEMP 98.2; O2SAT 96
[2024-04-10] MEDS: cefTRIAXone SOD 2 GM in DEXTROSE 5% (D5W) ADV/MINI-BAG 50 ML IV SCH (17:20)
[2024-04-10 20:00] VITALS: BP 115/64; TEMP 98.8; O2SAT 96
[2024-04-10] MEDS ORDERED: metroNIDAZOLE (FLAGYL) 500MG TABLET PO SCH (22:00)
[2024-04-11] VITALS: BP 144/68; TEMP 98.4; O2SAT 94
[2024-04-11 04:00] VITALS: BP 120/59; TEMP 98.6; O2SAT 95
[2024-04-11 05:04] LABS: BASO % 0.2 % (0.0-1.0); EOS # 0.2 10^3/uL (0.0-0.5); EOS % 0.8 % (0.0-3.0); HEMATOCRIT 34.3 % (36.0-47.0); HEMOGLOBIN 11.4 g/dl (12.0-15.5); LYMPH % 5.1 % (24.0-44.0); MEAN CORPUSCULAR HEMOGLOBIN 30.6 pg (27.0-33.0); MEAN CORPUSCULAR HGB CONC 33.2 g/dl (32.0-36.5); MEAN CORPUSCULAR VOLUME 92.2 fl (80.0-96.0); MONO # 1.3 10^3/uL (0.0-0.8); MONO % 6.6 % (2.0-8.0); NEUTROPHILS # 16.3 10^3/uL (1.5-8.5); NEUTROPHILS % 86.5 % (36.0-66.0); PLATELET COUNT, AUTOMATED 191 10^3/uL (150-450); RED BLOOD COUNT 3.72 10^6/uL (4.00-5.40); WHITE BLOOD COUNT 18.8 10^3/uL (4.0-10.0)
[2024-04-11 05:12] LABS: ERYTHROCYTE SEDIMENTATION RATE 66 mm/hr (0-30)
[2024-04-11 05:41] LABS: C REACTIVE PROTEIN QUANTITATIV 21.92 MG/DL (<1.0)
[2024-04-11 05:42] LABS: ALBUMIN 2.2 G/DL (3.2-5.2); BILIRUBIN,TOTAL 0.2 MG/DL (0.3-1.2); CALCIUM LEVEL 7.8 MG/DL (8.3-10.6); CREATININE FOR GFR 3.67 MG/DL (0.55-1.30); GLOMERULAR FILTRATION RATE 12.9 (>39); POTASSIUM SERUM 4.5 MMOL/L (3.5-5.1); TOTAL PROTEIN 5.2 G/DL (5.7-8.2)
[2024-04-11 05:48] LABS: PROCALCITONIN 1.39 ng/ml
[2024-04-11 08:12] VITALS: BP 143/74; TEMP 98; O2SAT 96
[2024-04-11 12:39] VITALS: BP 119/67; TEMP 98.3; O2SAT 95
[2024-04-11 16:12] VITALS: BP 116/57; TEMP 97.9; O2SAT 96
[2024-04-11 23:22] VITALS: BP 128/79; TEMP 98.4; O2SAT 95
[2024-04-12 03:53] VITALS: BP 137/70; TEMP 98.3; O2SAT 93
[2024-04-12 05:00] LABS: BASO # 0.1 10^3/uL (0.0-0.2); BASO % 0.4 % (0.0-1.0); EOS # 0.2 10^3/uL (0.0-0.5); EOS % 1.6 % (0.0-3.0); HEMATOCRIT 37.9 % (36.0-47.0); HEMOGLOBIN 12.6 g/dl (12.0-15.5); LYMPH # 1.6 10^3/uL (1.5-5.0); MEAN CORPUSCULAR HGB CONC 33.2 g/dl (32.0-36.5); MEAN CORPUSCULAR VOLUME 90.2 fl (80.0-96.0); MONO # 1.2 10^3/uL (0.0-0.8); MONO % 7.8 % (2.0-8.0); NEUTROPHILS # 11.4 10^3/uL (1.5-8.5); NEUTROPHILS % 76.7 % (36.0-66.0); PLATELET COUNT, AUTOMATED 204 10^3/uL (150-450); WHITE BLOOD COUNT 14.9 10^3/uL (4.0-10.0)
[2024-04-12 05:20] LABS: C REACTIVE PROTEIN QUANTITATIV 10.6 MG/DL (<1.0)
[2024-04-12 05:32] LABS: PROCALCITONIN 0.83 ng/ml
[2024-04-12 05:41] LABS: ALBUMIN 2.4 G/DL (3.2-5.2); BILIRUBIN,TOTAL 0.2 MG/DL (0.3-1.2); CALCIUM LEVEL 8.1 MG/DL (8.3-10.6); CREATININE FOR GFR 2.01 MG/DL (0.55-1.30); GLOMERULAR FILTRATION RATE 25.8 (>39); POTASSIUM SERUM 3.8 MMOL/L (3.5-5.1); TOTAL PROTEIN 5.8 G/DL (5.7-8.2)
[2024-04-12 08:00] VITALS: BP 139/79; TEMP 98.8; O2SAT 94
[2024-04-12 12:00] VITALS: BP 138/77; TEMP 98.9; O2SAT 91
[2024-04-12] MEDS ORDERED: ACET32TAB PO (13:07)
[2024-04-12] MEDS ORDERED: VENL75CA47 PO (13:07)
[2024-04-12] MEDS ORDERED: AUGM500T34 PO (13:07)
== END 2024-04-12 16:02 | disposition home or self-care (01) | DRG 872 ==
LOC: M ED 15:26 → EEVIPCON 20:41 → M ED INP 20:41 → M MS5PR 21:57 → M ICU 04-09 09:40
PROVIDERS: ADMIT Student in an Organized Health Care Education/Training Program; ATTEND Student in an Organized Health Care Education/Training Program
DX: A41.9 Sepsis, unspecified organism (principal); L03.116 Cellulitis of left lower limb; N17.9 Acute kidney failure, unspecified; N39.0 Urinary tract infection, site not specified; E78.5 Hyperlipidemia, unspecified; R65.20 Severe sepsis without septic shock; R59.0 Localized enlarged lymph nodes; A46 Erysipelas; I10 Essential (primary) hypertension; K21.9 Gastro-esophageal reflux disease without esophagitis; G89.29 Other chronic pain; M81.0 Age-related osteoporosis without current pathological fracture; M54.9 Dorsalgia, unspecified; F32.A Depression, unspecified; E87.6 Hypokalemia; Z85.820 Personal history of malignant melanoma of skin; B00.9 Herpesviral infection, unspecified; Z79.82 Long term (current) use of aspirin; Z79.899 Other long term (current) drug therapy; Z88.8 Allergy status to other drugs, medicaments and biological substances

== ENCOUNTER → 2024-04-18 | Outpatient (REF) | payer MEDICARE, MEDICAID ==
[~2024-04-18] MED LIST changes: +ACET32TAB PO; +ACYC1TAB4 PO; +AUGM500T34 PO; +POTA-151 PO; +VENL75CA47 PO
[2024-04-18 17:59] LABS: BASO # 0.1 10^3/uL (0.0-0.2); BASO % 0.5 % (0.0-1.0); EOS # 0.1 10^3/uL (0.0-0.5); EOS % 0.5 % (0.0-3.0); HEMATOCRIT 39.6 % (36.0-47.0); HEMOGLOBIN 12.6 g/dl (12.0-15.5); LYMPH # 2.3 10^3/uL (1.5-5.0); LYMPH % 18.9 % (24.0-44.0); MEAN CORPUSCULAR HEMOGLOBIN 30.3 pg (27.0-33.0); MEAN CORPUSCULAR HGB CONC 31.8 g/dl (32.0-36.5); MEAN CORPUSCULAR VOLUME 95.2 fl (80.0-96.0); MONO # 0.9 10^3/uL (0.0-0.8); MONO % 7.2 % (2.0-8.0); NEUTROPHILS # 8.5 10^3/uL (1.5-8.5); NEUTROPHILS % 71.6 % (36.0-66.0); PLATELET COUNT, AUTOMATED 419 10^3/uL (150-450); RED BLOOD COUNT 4.16 10^6/uL (4.00-5.40); WHITE BLOOD COUNT 11.9 10^3/uL (4.0-10.0)
[2024-04-18 18:25] LABS: ALBUMIN 3.2 G/DL (3.2-5.2); ALKALINE PHOSPHATASE 95 U/L (35-104); ALT/SGPT 22 U/L (7.0-40); AST/SGOT 15 U/L (<34); BILIRUBIN,TOTAL 0.2 MG/DL (0.3-1.2); BLOOD UREA NITROGEN 16 MG/DL (9-23); CALCIUM LEVEL 9.5 MG/DL (8.3-10.6); CARBON DIOXIDE LEVEL 32 MMOL/L (20-31); CHLORIDE LEVEL 106 MMOL/L (98-107); GLOMERULAR FILTRATION RATE > 60.0 (>39); GLUCOSE, FASTING 98 MG/DL (74-106); MAGNESIUM LEVEL 1.6 MG/DL (1.8-2.4); POTASSIUM SERUM 4.4 MMOL/L (3.5-5.1); SODIUM LEVEL 144 MMOL/L (136-145); TOTAL PROTEIN 7.1 G/DL (5.7-8.2)
== END ==
LOC: M SFHCADAM 14:34
PROVIDERS: ATTEND Physician Assistant
DX: N17.9 Acute kidney failure, unspecified (principal)

== ENCOUNTER → 2024-04-29 | Outpatient (REF) | payer MEDICARE, MEDICAID | LOC: M LAB REF 18:43 | PROVIDERS: ATTEND Physician Assistant Medical | DX: N39.0 Urinary tract infection, site not specified (principal) ==

== ENCOUNTER → 2024-05-02 | Outpatient (CLI) | payer MEDICARE, MEDICAID | LOC: M IRPRO 09:22 | PROVIDERS: ATTEND Otolaryngology | DX: R59.9 Enlarged lymph nodes, unspecified (principal) ==

== ENCOUNTER → 2024-05-02 | Outpatient (CLI) | payer MEDICARE, MEDICAID ==
[~2024-05-02] MED LIST changes: +LIDOCAINE 1% MDV 20ML VIAL As Ordered ONE
[2024-05-02 09:45] VITALS: TEMP 98.4
[2024-05-02 11:10] VITALS: BP 167/92; O2SAT 97
== END ==
LOC: M IRPRO 09:24
PROVIDERS: ATTEND Internal Medicine Medical Oncology
DX: R59.0 Localized enlarged lymph nodes (principal); Z85.828 Personal history of other malignant neoplasm of skin

== ENCOUNTER → 2024-05-09 | Outpatient (REF) | payer MEDICARE, MEDICAID ==
[~2024-05-09] MED LIST changes: -LIDOCAINE 1% MDV 20ML VIAL As Ordered ONE
== END ==
LOC: M LAB REF 17:27
PROVIDERS: ATTEND Nurse Practitioner Family
DX: R30.0 Dysuria (principal)

== ENCOUNTER → 2024-05-18 | Outpatient (CLI) | payer MEDICARE, MEDICAID ==
[2024-05-18 18:14] LABS: APPEARANCE, URINE HAZY (CLEAR); BACTERIA, URINE AUTO 1+ (NEGATIVE); BILIRUBIN, URINE AUTO NEGATIVE (NEGATIVE); BLOOD, URINE BLOOD NEGATIVE (NEGATIVE); COLOR, URINE YELLOW (YELLOW); GLUCOSE, URINE (UA) AUTO NEGATIVE (NEGATIVE); KETONE, URINE AUTO NEGATIVE (NEGATIVE); LEUKOCYTE ESTERASE, URINE AUTO 3+ (NEGATIVE); MUCUS, URINE SMALL (NEGATIVE); NITRITE, URINE AUTO NEGATIVE (NEGATIVE); PROTEIN, URINE AUTO NEGATIVE (NEGATIVE); RBC, URINE AUTO 4 /HPF (0-3); SPECIFIC GRAVITY URINE AUTO 1.019 (1.002-1.035); SQUAMOUS EPITHELIAL CELL UR AU 0 /HPF (0-6); UROBILINOGEN, URINE AUTO 0.2 mg/dL (0.0-2.0); WBC, URINE AUTO TNTC /HPF (0-3)
== END ==
LOC: M LAB 16:47
PROVIDERS: ATTEND Physician Assistant Medical
DX: R30.0 Dysuria (principal)

== ENCOUNTER → 2024-06-20 | Outpatient (CLI) | payer MEDICARE, MEDICAID ==
[~2024-06-20] MED LIST changes: +ACYC1TAB4; +TRIA37.577
== END ==
LOC: M RAD 14:13
PROVIDERS: ATTEND Internal Medicine Pulmonary Disease
DX: R91.8 Other nonspecific abnormal finding of lung field (principal)

== ENCOUNTER → 2024-07-04 | Outpatient (CLI) | payer MEDICARE, MEDICAID ==
[2024-07-04 12:52] LABS: BASO # 0.1 10^3/uL (0.0-0.2); BASO % 0.5 % (0.0-1.0); EOS # 0.2 10^3/uL (0.0-0.5); EOS % 1.5 % (0.0-3.0); HEMATOCRIT 41.7 % (36.0-47.0); HEMOGLOBIN 13.5 g/dl (12.0-15.5); LYMPH % 27.9 % (24.0-44.0); MEAN CORPUSCULAR HEMOGLOBIN 29.4 pg (27.0-33.0); MEAN CORPUSCULAR HGB CONC 32.4 g/dl (32.0-36.5); MEAN CORPUSCULAR VOLUME 90.8 fl (80.0-96.0); MONO # 0.7 10^3/uL (0.0-0.8); NEUTROPHILS # 6.7 10^3/uL (1.5-8.5); NEUTROPHILS % 62.7 % (36.0-66.0); PLATELET COUNT, AUTOMATED 278 10^3/uL (150-450); RED BLOOD COUNT 4.59 10^6/uL (4.00-5.40); WHITE BLOOD COUNT 10.6 10^3/uL (4.0-10.0)
[2024-07-04 13:16] LABS: ALBUMIN 3.8 G/DL (3.2-5.2); ALKALINE PHOSPHATASE 55 U/L (35-104); ALT/SGPT 19 U/L (7.0-40); AST/SGOT 18 U/L (<34); BILIRUBIN,DIRECT < 0.1 MG/DL (<0.4); BILIRUBIN,TOTAL 0.3 MG/DL (0.3-1.2); BLOOD UREA NITROGEN 20 MG/DL (9-23); CALCIUM LEVEL 9.5 MG/DL (8.3-10.6); CARBON DIOXIDE LEVEL 36 MMOL/L (20-31); CHLORIDE LEVEL 100 MMOL/L (98-107); CHOLESTEROL LEVEL 163 MG/DL (<200); CHOLESTEROL RISK RATIO 2.64 (<5); CREATININE FOR GFR 0.64 MG/DL (0.55-1.30); GLOMERULAR FILTRATION RATE > 90.0 (>39); GLUCOSE, FASTING 78 MG/DL (74-106); HDL CHOLESTEROL 61.6 MG/DL (>40); LDL CHOLESTEROL 68.2 MG/DL (<100); NON-HDL-C 101.4 MG/DL; SODIUM LEVEL 142 MMOL/L (136-145); TOTAL PROTEIN 6.9 G/DL (5.7-8.2); TRIGLYCERIDES LEVEL 166 MG/DL (<150)
[2024-07-04 13:29] LABS: HEMOGLOBIN A1c 5.6 % (4.0-6.0)
== END ==
LOC: M LAB 12:00
PROVIDERS: ATTEND Internal Medicine Cardiovascular Disease
DX: E78.2 Mixed hyperlipidemia (principal)

== ENCOUNTER → 2024-07-14 | Outpatient (REF) | payer MEDICARE, MEDICAID ==
[2024-07-14 13:55] LABS: APPEARANCE, URINE CLOUDY (CLEAR); BACTERIA, URINE AUTO NEGATIVE (NEGATIVE); BILIRUBIN, URINE AUTO NEGATIVE (NEGATIVE); BLOOD, URINE BLOOD 1+ (NEGATIVE); COLOR, URINE YELLOW (YELLOW); GLUCOSE, URINE (UA) AUTO NEGATIVE (NEGATIVE); KETONE, URINE AUTO NEGATIVE (NEGATIVE); LEUKOCYTE ESTERASE, URINE AUTO 3+ (NEGATIVE); MUCUS, URINE SMALL (NEGATIVE); NITRITE, URINE AUTO NEGATIVE (NEGATIVE); PROTEIN, URINE AUTO NEGATIVE (NEGATIVE); RBC, URINE AUTO 31 /HPF (0-3); SPECIFIC GRAVITY URINE AUTO 1.017 (1.002-1.035); SQUAMOUS EPITHELIAL CELL UR AU 2 /HPF (0-6); UROBILINOGEN, URINE AUTO 0.2 mg/dL (0.0-2.0); WBC, URINE AUTO TNTC /HPF (0-3)
== END ==
LOC: M SMT 12:57
PROVIDERS: ATTEND Specialist
DX: N39.0 Urinary tract infection, site not specified (principal)

== ENCOUNTER → 2024-07-18 | Outpatient (CLI) | payer MEDICARE, MEDICAID ==
[~2024-07-18] MED LIST changes: +LIDOCAINE 1% MDV 20ML VIAL As Ordered ONE
[2024-07-18 10:05] VITALS: TEMP 97.8
[2024-07-18 11:00] VITALS: BP 178/84; O2SAT 94
== END ==
LOC: M IRPRO 09:47
PROVIDERS: ATTEND Physician Assistant
DX: E04.2 Nontoxic multinodular goiter (principal)

== ENCOUNTER → 2024-10-02 | Outpatient (CLI) | payer MEDICARE, MEDICAID ==
[~2024-10-02] MED LIST changes: +ACYC-438 PO; -ACYC1TAB PO; -LIDOCAINE 1% MDV 20ML VIAL As Ordered ONE
== END ==
LOC: M RAD 12:03
PROVIDERS: ATTEND Physician Assistant Medical
DX: G31.89 Other specified degenerative diseases of nervous system (principal)

== ENCOUNTER → 2024-10-16 | Outpatient (REF) | payer MEDICARE, MEDICAID | LOC: M LAB REF 16:46 | PROVIDERS: ATTEND Neuromusculoskeletal Medicine, Sports Medicine | DX: M17.0 Bilateral primary osteoarthritis of knee (principal) ==

== ENCOUNTER 2024-12-19 12:32 | Outpatient (RCR) | payer MEDICARE, MEDICAID ==
[~2024-12-19 12:32] MED LIST changes: -TRIA37.577
[2025-01-02] MEDS ORDERED: MELO7.5T35 PO (18:34)
[2025-01-03] MEDS ORDERED: ASPI81TA26 PO (12:57)
[2025-01-03] MEDS ORDERED: SENN18TA PO (12:57)
[2025-01-03] MEDS ORDERED: POTA-151 PO (13:14)
[2025-01-03] MEDS ORDERED: OXYC-517 PO (15:45)
[2025-01-04] MEDS ORDERED: OXYC-517 PO (15:38)
== END 2025-01-12 ==
LOC: M PT 12:32
PROVIDERS: ATTEND Neuromusculoskeletal Medicine, Sports Medicine
DX: M17.0 Bilateral primary osteoarthritis of knee (principal)

== ENCOUNTER → 2024-12-19 | Outpatient (CLI) | payer MEDICARE, MEDICAID ==
[~2024-12-19] MED LIST changes: -IBUP-1022 PO; +IBUP600T42 PO; +MAGN400T33 PO; +METH-1100 PO
== END ==
LOC: M RAD 13:49
PROVIDERS: ATTEND Neuromusculoskeletal Medicine, Sports Medicine
DX: M17.0 Bilateral primary osteoarthritis of knee (principal)

== ENCOUNTER → 2024-12-22 | Outpatient (REF) | payer MEDICARE, MEDICAID ==
[~2024-12-22] MED LIST changes: +MELO7.5T35 PO
== END ==
LOC: M SFHCDERM 17:29
PROVIDERS: ATTEND Nurse Practitioner Family
DX: D49.2 Neoplasm of unspecified behavior of bone, soft tissue, and skin (principal)

== ENCOUNTER → 2024-12-29 | Outpatient (CLI) | payer MEDICARE, MEDICAID ==
[2024-12-29 14:35] LABS: BASO # 0.0 10^3/uL (0.0-0.2); BASO % 0.4 % (0.0-1.0); EOS # 0.2 10^3/uL (0.0-0.5); EOS % 1.6 % (0.0-3.0); LYMPH # 2.2 10^3/uL (1.5-5.0); LYMPH % 23.2 % (24.0-44.0); MONO # 0.7 10^3/uL (0.0-0.8); MONO % 7.8 % (2.0-8.0); NEUTROPHILS # 6.2 10^3/uL (1.5-8.5); NEUTROPHILS % 66.7 % (36.0-66.0); PLATELET COUNT, AUTOMATED 272 10^3/uL (150-450)
[2024-12-29 14:58] LABS: ALT/SGPT 18 U/L (7.0-40); AST/SGOT 19 U/L (<34); CALCIUM LEVEL 9.6 MG/DL (8.3-10.6); CARBON DIOXIDE LEVEL 37 MMOL/L (20-31); CHLORIDE LEVEL 99 MMOL/L (98-107); CREATININE FOR GFR 0.68 MG/DL (0.55-1.30); GLOMERULAR FILTRATION RATE > 90.0 (>39); POTASSIUM SERUM 3.6 MMOL/L (3.5-5.1); SODIUM LEVEL 145 MMOL/L (136-145)
== END ==
LOC: M LAB 13:36
PROVIDERS: ATTEND Neuromusculoskeletal Medicine, Sports Medicine
DX: M17.0 Bilateral primary osteoarthritis of knee (principal); Z79.899 Other long term (current) drug therapy

== ENCOUNTER 2025-01-02 06:03 | Observation (INO) | payer MEDICARE, MEDICAID ==
[2024-12-30] MEDS: LR 1,000 ML IV SCH (16:15)
[~2025-01-02] VITALS: Ht 170.2 cm; Wt 64.2 kg
[~2025-01-02 06:03] MED LIST changes: -MELO7.5T35 PO
[2025-01-02] MEDS ORDERED: MIDAZOLAM INJ 2 MG/2 ML VIAL As Ordered ONE (06:43)
[2025-01-02] MEDS ORDERED: LIDOCAINE 2% 100 MG/5 ML SDV (FOR ANES.) As Ordered ONE (06:43)
[2025-01-02] MEDS: MIDAZOLAM INJ 2 MG/2 ML VIAL IV PRN (07:38)
[2025-01-02] MEDS: dexAMETHasone 10 MG/1 ML VIAL PRES.FREE PN ONE (07:42)
[2025-01-02] MEDS: ROPIvacaine 0.5% 30ML VIAL PN ONE (07:42)
[2025-01-02] MEDS: LIDOCAINE 1% SDV 5 ML VIAL PN ONE (07:42)
[2025-01-02] MEDS: ceFAZolin SOD 2 GM IV ONCE IV ONE (08:09)
[2025-01-02] MEDS: TRANEXAMIC ACID 100 MG/ML 10ML VIAL As Ordered ONE (08:15)
[2025-01-02] MEDS ORDERED: PHENYLephrine 500MCG 5ML (100MCG/ML) SYRINGE As Ordered ONE (09:54)
[2025-01-02] MEDS: VANCOMYCIN 1000MG/20ML VIAL As Ordered ONE (09:58)
[2025-01-02] MEDS: KETOROLAC 30 MG/ML 1 ML VIAL As Ordered ONE (09:59)
[2025-01-02] MEDS ORDERED: ONDANSETRON 4MG/2ML VIAL IV PRN ×2 (10:20→10:50)
[2025-01-02] MEDS ORDERED: HYDROMORPHONE HCL 0.5 MG/0.5 ML SYRINGE IV PRN (10:20)
[2025-01-02] MEDS ORDERED: MORPHINE 4 MG/ML 1 ML VIAL IV PRN (10:50)
[2025-01-02] MEDS ORDERED: HYDROmorphone 2 MG TAB PO PRN (10:50)
[2025-01-02 13:51] LABS: PLATELET COUNT, AUTOMATED 209 10^3/uL (150-450)
[2025-01-02 14:22] LABS: CALCIUM LEVEL 8.3 MG/DL (8.3-10.6); CARBON DIOXIDE LEVEL 33 MMOL/L (20-31); CHLORIDE LEVEL 103 MMOL/L (98-107); CREATININE FOR GFR 0.63 MG/DL (0.55-1.30); GLOMERULAR FILTRATION RATE > 90.0 (>39); POTASSIUM SERUM 3.4 MMOL/L (3.5-5.1); SODIUM LEVEL 145 MMOL/L (136-145)
[2025-01-02] MEDS: ceFAZolin SODIUM 2 GM in DEXTROSE 5% (D5W) ADV/MINI-BAG 50 ML IV SCH (16:15)
[2025-01-02 17:24] VITALS: BP 143/76; TEMP 99.7; O2SAT 96
[2025-01-02] MEDS ORDERED: MELO7.5T35 PO (18:34)
[2025-01-02] MEDS ORDERED: HOME MED LIST COMPLETE! XX SCH (18:35)
[2025-01-02] MEDS: LR 1,000 ML IV SCH (18:56)
[2025-01-02] MEDS: ACETAMINOPHEN *IV* 1,000 MG in IV 1 EA IV SCH (18:59)
[2025-01-02] MEDS: OMEPRAZOLE 20MG CAP PO SCH (20:39)
[2025-01-02] MEDS: DOCUSATE SODIUM 100 MG CAPSULE PO SCH (20:39)
[2025-01-02] MEDS: SIMVASTATIN 20 MG TAB PO SCH (20:39)
[2025-01-02] MEDS: HYDROmorphone 2 MG TAB PO PRN (20:40)
[2025-01-02 21:35] VITALS: BP 125/71; TEMP 98.6; O2SAT 91
[2025-01-02 23:56] VITALS: BP 114/59; TEMP 97.4; O2SAT 86
[2025-01-03 07:00] VITALS: BP 123/70; TEMP 99.1; O2SAT 95
[2025-01-03 07:00] LABS: PLATELET COUNT, AUTOMATED 213 10^3/uL (150-450)
[2025-01-03 07:36] LABS: CALCIUM LEVEL 8.0 MG/DL (8.3-10.6); CARBON DIOXIDE LEVEL 31 MMOL/L (20-31); CHLORIDE LEVEL 101 MMOL/L (98-107); CREATININE FOR GFR 0.60 MG/DL (0.55-1.30); GLOMERULAR FILTRATION RATE > 90.0 (>39); POTASSIUM SERUM 3.2 MMOL/L (3.5-5.1); SODIUM LEVEL 142 MMOL/L (136-145)
[2025-01-03] MEDS: dexAMETHasone 10 MG/1 ML VIAL PRES.FREE IV ONE (08:01)
[2025-01-03] MEDS: ASCORBIC ACID 500 MG TAB PO SCH (08:03)
[2025-01-03] MEDS: ASPIRIN 81 MG ENTERIC TABLET PO SCH (08:03)
[2025-01-03] MEDS: FERROUS SULFATE 325 MG TAB PO SCH (08:03)
[2025-01-03] MEDS: SENNA 8.6 MG TAB PO SCH (08:14)
[2025-01-03] MEDS ORDERED: VENLAFAXINE **XR** 75MG CAPSULE PO SCH (09:00)
[2025-01-03] MEDS ORDERED: SENN18TA PO (12:57)
[2025-01-03] MEDS ORDERED: ASPI81TA26 PO (12:57)
[2025-01-03] MEDS ORDERED: POTA-151 PO (13:14)
[2025-01-03] MEDS: POTASSIUM CHLORIDE 10MEQ SR TABLET PO ONE (13:37)
[2025-01-03 14:00] VITALS: BP 118/76; TEMP 97.5; O2SAT 98
[2025-01-03] MEDS ORDERED: OXYC-517 PO (15:45)
[2025-01-04] MEDS ORDERED: OXYC-517 PO (15:38)
== END 2025-01-03 14:40 | disposition home or self-care (01) ==
LOC: M SDC 06:03 → M RR INP 06:04 → M MS5PR 17:34
PROVIDERS: ADMIT Student in an Organized Health Care Education/Training Program; ATTEND Student in an Organized Health Care Education/Training Program
DX: M17.11 Unilateral primary osteoarthritis, right knee (principal); I10 Essential (primary) hypertension; E78.5 Hyperlipidemia, unspecified; K21.9 Gastro-esophageal reflux disease without esophagitis; K44.9 Diaphragmatic hernia without obstruction or gangrene; M54.2 Cervicalgia; G89.29 Other chronic pain; D86.9 Sarcoidosis, unspecified; E87.6 Hypokalemia; Z85.820 Personal history of malignant melanoma of skin; Z90.79 Acquired absence of other genital organ(s); Z98.51 Tubal ligation status; Z82.49 Family history of ischemic heart disease and other diseases of the circulatory system; Z82.5 Family history of asthma and other chronic lower respiratory diseases; Z80.3 Family history of malignant neoplasm of breast; Z80.52 Family history of malignant neoplasm of bladder; Z87.891 Personal history of nicotine dependence; Z79.899 Other long term (current) drug therapy; Z88.8 Allergy status to other drugs, medicaments and biological substances
CPT/HCPCS: 27447; 36415; 73560; 80048; 85027; 88300; 96374; 96375; 96376; 97110; 97116; 97161; 97530; C1713; C1776; G0378; J0131; J0665; J0666; J0688; J1100; J1885; J2250; J2371; J2795; J3010; J3373; S2900

== ENCOUNTER → 2025-01-11 | Outpatient (CLI) | payer MEDICARE, MEDICAID ==
[~2025-01-11] MED LIST changes: +MELO7.5T35 PO; +OXYC-517 PO; +SENN18TA PO
== END ==
LOC: M PLAIMG 13:09
PROVIDERS: ATTEND Internal Medicine Pulmonary Disease
DX: R91.8 Other nonspecific abnormal finding of lung field (principal); E04.1 Nontoxic single thyroid nodule; K44.9 Diaphragmatic hernia without obstruction or gangrene; I89.8 Other specified noninfective disorders of lymphatic vessels and lymph nodes

== ENCOUNTER → 2025-01-15 | Outpatient (CLI) | payer MEDICARE, MEDICAID | LOC: M SOG 08:25 | PROVIDERS: ATTEND Physician Assistant | DX: M17.11 Unilateral primary osteoarthritis, right knee (principal) ==

== ENCOUNTER → 2025-01-30 | Outpatient (CLI) | payer MEDICARE, MEDICAID ==
[~2025-01-30] MED LIST changes: +ISOVUE-370 76% 100 ML VIAL As Ordered ONE
== END ==
LOC: M RAD 11:09
PROVIDERS: ATTEND Internal Medicine Medical Oncology
DX: Z85.828 Personal history of other malignant neoplasm of skin (principal)
CPT/HCPCS: 74177; Q9967

== ENCOUNTER 2025-02-06 12:58 | Outpatient (RCR) | payer MEDICARE, MEDICAID ==
[~2025-02-06 12:58] MED LIST changes: -ISOVUE-370 76% 100 ML VIAL As Ordered ONE
[2025-02-13] MEDS ORDERED: ACYC200C10 (10:47)
== END 2025-02-11 ==
LOC: M PT 12:58
PROVIDERS: ATTEND Neuromusculoskeletal Medicine, Sports Medicine
DX: M17.0 Bilateral primary osteoarthritis of knee (principal); Z96.651 Presence of right artificial knee joint

== ENCOUNTER → 2025-02-13 | Outpatient (CLI) | payer MEDICARE, MEDICAID ==
[~2025-02-13] MED LIST changes: +ACYC200C10
== END ==
LOC: M WHC 14:22
PROVIDERS: ATTEND Physician Assistant
DX: N60.19 Diffuse cystic mastopathy of unspecified breast (principal); R92.333 Mammographic heterogeneous density, bilateral breasts

== ENCOUNTER 2025-03-13 13:45 | Outpatient (RCR) | payer MEDICARE, MEDICAID | END 2025-03-14 | LOC: M PT 13:45 | PROVIDERS: ATTEND Neuromusculoskeletal Medicine, Sports Medicine | DX: M17.0 Bilateral primary osteoarthritis of knee (principal) ==